=== PATIENT | female | born 1930 | race Caucasian/White ===

== ENCOUNTER 2016-08-11 13:25 | Outpatient (CLI) | payer MEDICARE | END 2016-08-11 13:26 | disposition home or self-care (01) | DX: M54.5 Low back pain (principal); E11.9 Type 2 diabetes mellitus without complications; I48.91 Unspecified atrial fibrillation; I10 Essential (primary) hypertension ==

== ENCOUNTER 2017-02-10 08:20 | Outpatient (CLI) | payer MEDICARE, OTHER ==
[2017-02-10 13:49] LABS: BASOPHILS % (AUTO) 0.7 %; EOSINOPHILS # (AUTO) 0.1 10^3/uL (0.0-0.7); EOSINOPHILS % (AUTO) 2.2 %; HCT - HEMATOCRIT 43.9 % (37.0-47.0); HGB - HEMOGLOBIN 14.6 g/dL (12.0-16.0); MEAN CORPUSCULAR HEMOGLOBIN 28.9 pg (27.0-31.0); MEAN CORPUSCULAR HGB CONC 33.3 g/dL (32.0-36.0); MEAN CORPUSCULAR VOLUME 86.8 fL (81.0-99.0); MEAN PLATELET VOLUME 8.3 fL (7.9-10.8); MONOCYTES # (AUTO) 0.5 10^3/uL (0.0-1.0); MONOCYTES % (AUTO) 8.6 %; NEUTROPHILS # (AUTO) 4.3 10^3/uL (1.5-6.6); NEUTROPHILS % (AUTO) 71.5 %; NUCLEATED RED BLOOD CELLS AUTO 0.1 /100WBC; RED BLOOD COUNT 5.06 10^6/uL (4.20-5.40); RED CELL DISTRIBUTION WIDTH 13.5 % (12.0-15.0)
[2017-02-10 13:59] LABS: HEMOGLOBIN A1C 0.83 g/dL
[2017-02-10 14:09] LABS: ALBUMIN/GLOBULIN RATIO 1.4 (1.0-2.2); BUN - BLOOD UREA NITROGEN 23 mg/dL (6-20); CALCIUM 9.4 mg/dL (8.5-10.3); CARBON DIOXIDE - CO2 29 mmol/L (21-32); CHLORIDE 101 mmol/L (101-111); CHOLESTEROL 133 mg/dL; CREATININE 0.8 mg/dL (0.4-1.0); GFR - MDRD 68 (>89); GLUCOSE 123 mg/dL (70-100); POTASSIUM 4.1 mmol/L (3.5-5.0); SODIUM 137 mmol/L (135-145); TOTAL PROTEIN 7.3 g/dL (6.7-8.2); TRIGLYCERIDES 182 mg/dL; VLDL CHOLESTEROL 36 mg/dL
[2017-02-10 14:10] LABS: CHOL/HDL RATIO 3.7 (<4.4); HDL CHOLESTEROL 36 mg/dL; LDL/HDL RATIO 1.7 (<4.4)
== END 2017-02-10 08:21 | disposition home or self-care (01) ==
LOC: LAB.WCP 08:20
PROVIDERS: ATTEND Family Medicine
DX: E78.5 Hyperlipidemia, unspecified (principal); E11.9 Type 2 diabetes mellitus without complications
CPT/HCPCS: 36415; 80053; 80061; 83036; 85025

== ENCOUNTER 2017-03-17 15:25 | Outpatient (CLI) | payer MEDICARE, OTHER | END 2017-03-17 15:26 | disposition home or self-care (01) | LOC: LAB.R 15:25 | PROVIDERS: ATTEND Family Medicine | DX: N39.0 Urinary tract infection, site not specified (principal) | CPT/HCPCS: 87077; 87086 ==

== ENCOUNTER 2017-04-06 15:33 | Outpatient (CLI) | payer MEDICARE, OTHER | END 2017-04-06 15:34 | disposition home or self-care (01) | LOC: LAB.R 15:33 | PROVIDERS: ATTEND Family Medicine | DX: N39.0 Urinary tract infection, site not specified (principal) | CPT/HCPCS: 87086 ==

== ENCOUNTER 2017-05-03 14:28 | Outpatient (CLI) | payer MEDICARE, OTHER ==
[2017-05-03 13:06] LABS: BASOPHILS % (AUTO) 0.6 %; EOSINOPHILS # (AUTO) 0.2 10^3/uL (0.0-0.7); EOSINOPHILS % (AUTO) 3.1 %; HCT - HEMATOCRIT 39.8 % (37.0-47.0); HGB - HEMOGLOBIN 13.4 g/dL (12.0-16.0); LYMPHOCYTES % (AUTO) 19.7 %; MEAN CORPUSCULAR HEMOGLOBIN 29.3 pg (27.0-31.0); MEAN CORPUSCULAR HGB CONC 33.6 g/dL (32.0-36.0); MEAN CORPUSCULAR VOLUME 87.3 fL (81.0-99.0); MEAN PLATELET VOLUME 9.2 fL (7.9-10.8); MONOCYTES # (AUTO) 0.4 10^3/uL (0.0-1.0); MONOCYTES % (AUTO) 8.9 %; NEUTROPHILS # (AUTO) 3.4 10^3/uL (1.5-6.6); NEUTROPHILS % (AUTO) 67.7 %; NUCLEATED RED BLOOD CELLS AUTO 0.2 /100WBC; RED BLOOD COUNT 4.56 10^6/uL (4.20-5.40); RED CELL DISTRIBUTION WIDTH 14.6 % (12.0-15.0)
[2017-05-03 13:31] LABS: BUN - BLOOD UREA NITROGEN 25 mg/dL (6-20); CALCIUM 9.1 mg/dL (8.5-10.3); CARBON DIOXIDE - CO2 26 mmol/L (21-32); CHLORIDE 107 mmol/L (101-111); CHOL/HDL RATIO 3.3 (<4.4); CHOLESTEROL 98 mg/dL; CREATININE 0.8 mg/dL (0.4-1.0); GFR - MDRD 68 (>89); GLUCOSE 123 mg/dL (70-100); HDL CHOLESTEROL 30 mg/dL; LDL/HDL RATIO 1.5 (<4.4); POTASSIUM 4.2 mmol/L (3.5-5.0); SODIUM 138 mmol/L (135-145); TRIGLYCERIDES 114 mg/dL; VLDL CHOLESTEROL 23 mg/dL
== END 2017-05-03 14:29 | disposition home or self-care (01) ==
LOC: LAB.WCP 14:28
PROVIDERS: ATTEND Internal Medicine Cardiovascular Disease
DX: I48.1 Persistent atrial fibrillation (principal); Z79.01 Long term (current) use of anticoagulants; I35.0 Nonrheumatic aortic (valve) stenosis; E78.5 Hyperlipidemia, unspecified; I10 Essential (primary) hypertension; X58.XXXD Exposure to other specified factors, subsequent encounter
CPT/HCPCS: 36415; 80048; 80061; 85025

== ENCOUNTER 2017-06-13 09:15 | Outpatient (CLI) | payer MEDICARE, OTHER ==
[2017-06-13 13:53] LABS: BASOPHILS % (AUTO) 1.2 %; EOSINOPHILS # (AUTO) 0.1 10^3/uL (0.0-0.7); EOSINOPHILS % (AUTO) 2.7 %; HCT - HEMATOCRIT 34.2 % (37.0-47.0); HGB - HEMOGLOBIN 11.8 g/dL (12.0-16.0); LYMPHOCYTES # (AUTO) 0.9 10^3/uL (1.5-3.5); LYMPHOCYTES % (AUTO) 24.6 %; MEAN CORPUSCULAR HEMOGLOBIN 30.8 pg (27.0-31.0); MEAN CORPUSCULAR HGB CONC 34.5 g/dL (32.0-36.0); MEAN CORPUSCULAR VOLUME 89.1 fL (81.0-99.0); MEAN PLATELET VOLUME 9.1 fL (7.9-10.8); MONOCYTES # (AUTO) 0.3 10^3/uL (0.0-1.0); MONOCYTES % (AUTO) 9.4 %; NEUTROPHILS # (AUTO) 2.2 10^3/uL (1.5-6.6); NEUTROPHILS % (AUTO) 62.1 %; NUCLEATED RED BLOOD CELLS AUTO 0.3 /100WBC; RED BLOOD COUNT 3.84 10^6/uL (4.20-5.40); RED CELL DISTRIBUTION WIDTH 16.4 % (12.0-15.0); UNCORRECTED WHITE BLOOD COUNT 3.6 x10^3/uL; WHITE BLOOD COUNT 3.6 x10^3/uL (4.8-10.8)
== END 2017-06-13 09:16 | disposition home or self-care (01) ==
LOC: LAB.WCP 09:15
PROVIDERS: ATTEND Internal Medicine Cardiovascular Disease
DX: I10 Essential (primary) hypertension (principal)
CPT/HCPCS: 36415; 85025

== ENCOUNTER 2017-06-28 14:36 | Outpatient (CLI) | payer MEDICARE, OTHER ==
[2017-06-28 12:55] LABS: HCT - HEMATOCRIT 31.4 % (37.0-47.0); HGB - HEMOGLOBIN 10.9 g/dL (12.0-16.0); MEAN CORPUSCULAR HEMOGLOBIN 31.1 pg (27.0-31.0); MEAN CORPUSCULAR HGB CONC 34.6 g/dL (32.0-36.0); MEAN PLATELET VOLUME 9.3 fL (7.9-10.8); RED BLOOD COUNT 3.49 10^6/uL (4.20-5.40); RED CELL DISTRIBUTION WIDTH 16.9 % (12.0-15.0)
== END 2017-06-28 14:37 | disposition home or self-care (01) ==
LOC: LAB.WCP 14:36
PROVIDERS: ATTEND Family Medicine
DX: D69.6 Thrombocytopenia, unspecified (principal)
CPT/HCPCS: 36415

== ENCOUNTER 2017-07-26 08:00 | Outpatient (CLI) | payer MEDICARE, OTHER ==
[2017-07-26 13:36] LABS: ALBUMIN/GLOBULIN RATIO 1.4 (1.0-2.2); ALKALINE PHOSPHATASE 62 IU/L (42-121); ALT ALANINE AMINOTRANSFERASE < 10 IU/L (10-60); AST ASPARTATE AMINOTRANSFERASE 21 IU/L (10-42); BILIRUBIN,TOTAL 1.4 mg/dL (0.2-1.0); BUN - BLOOD UREA NITROGEN 28 mg/dL (6-20); CALCIUM 9.1 mg/dL (8.5-10.3); CARBON DIOXIDE - CO2 23 mmol/L (21-32); CHLORIDE 105 mmol/L (101-111); CHOL/HDL RATIO 2.9 (<4.4); CHOLESTEROL 73 mg/dL; CREATININE 0.8 mg/dL (0.4-1.0); GFR - MDRD 68 (>89); GLUCOSE 173 mg/dL (70-100); HDL CHOLESTEROL 25 mg/dL; LDL CHOLESTEROL,CALCULATED 30 mg/dL; LDL/HDL RATIO 1.2 (<4.4); SODIUM 137 mmol/L (135-145); TOTAL PROTEIN 6.8 g/dL (6.7-8.2); VLDL CHOLESTEROL 18 mg/dL
[2017-07-26 14:08] LABS: HB2 TOTAL 9.8 g/dL; HEMOGLOBIN A1C 0.53 g/dL; HEMOGLOBIN A1C % 7.1 % (4.6-6.2)
== END 2017-07-26 08:01 | disposition home or self-care (01) ==
LOC: LAB.WCP 08:00
PROVIDERS: ATTEND Family Medicine
DX: I48.91 Unspecified atrial fibrillation (principal); E11.9 Type 2 diabetes mellitus without complications; I10 Essential (primary) hypertension; E78.5 Hyperlipidemia, unspecified
CPT/HCPCS: 36415; 80053; 80061; 83036

== ENCOUNTER 2017-08-01 09:00 | Outpatient (CLI) | payer MEDICARE, OTHER ==
[2017-08-01 12:58] LABS: BASOPHILS % (AUTO) 1.4 %; EOSINOPHILS % (AUTO) 1.3 %; HGB - HEMOGLOBIN 9.6 g/dL (12.0-16.0); LYMPHOCYTES # (AUTO) 0.7 10^3/uL (1.5-3.5); MEAN CORPUSCULAR HEMOGLOBIN 31.9 pg (27.0-31.0); MEAN CORPUSCULAR HGB CONC 34.4 g/dL (32.0-36.0); MEAN CORPUSCULAR VOLUME 92.7 fL (81.0-99.0); MEAN PLATELET VOLUME 10.1 fL (7.9-10.8); MONOCYTES # (AUTO) 0.3 10^3/uL (0.0-1.0); MONOCYTES % (AUTO) 14.7 %; NEUTROPHILS # (AUTO) 1.2 10^3/uL (1.5-6.6); NEUTROPHILS % (AUTO) 53.6 %; PLT - PLATELET COUNT 50 10^3/uL (130-450); RED CELL DISTRIBUTION WIDTH 18.3 % (12.0-15.0); WHITE BLOOD COUNT 2.3 x10^3/uL (4.8-10.8)
[2017-08-01 13:10] LABS: PLATELET MORPHOLOGY RARE GIANT PLATELETS (NORMAL); RBC MORPHOLOGY (MULTIPLE) 1+ POLYCHROMASIA (NORMAL)
== END 2017-08-01 09:01 | disposition home or self-care (01) ==
LOC: LAB.WCP 09:00
PROVIDERS: ATTEND Family Medicine
DX: D64.9 Anemia, unspecified (principal); D69.6 Thrombocytopenia, unspecified
CPT/HCPCS: 36415; 85025

== ENCOUNTER 2017-09-15 11:13 | Outpatient (CLI) | payer MEDICARE, OTHER | END 2017-09-15 11:14 | disposition EMS.NT | LOC: EMS 11:13 | PROVIDERS: ATTEND Surgery | DX: R60.9 Edema, unspecified (principal); R06.02 Shortness of breath ==

== ENCOUNTER 2017-09-15 12:02 | Inpatient (IN) | payer MEDICARE, OTHER ==
[2017-09-15] MEDS ORDERED: FUROSEMIDE 40 MG/4 ML VIAL IVP STA (12:44)
--- NOTE | 2017-09-15 12:47 | ED Physician Documentation ---
PD HPI DYSPNEA - Stated complaint Stated Complaint: SOA/SWOLLEN LEGS/ABD - Chief complaint Chief Complaint: Cardiac - History obtained from History obtained from: Patient, Caregiver - History of Present Illness Timing - onset: Other (87-year-old woman with recent diagnosis of myelodysplastic syndrome, has been on Revlimid for about a month and a half, she has a history of A. fib, is not anticoagulated. She has no history of heart failure or other heart conditions. For the last week she has had progressive pedal edema and abdominal swelling associated with exertional dyspnea, at this point can only walk about 20 feet without feeling breathless and having to rest. There is no associated chest pain. No fevers or cough.) Review of Systems Ten Systems: 10 systems reviewed and negative Constitutional: reports: Fatigue. denies: Fever, Chills Nose: denies: Rhinorrhea / runny nose, Congestion Cardiac: reports: Palpitations, Pedal edema. denies: Chest pain / pressure, Calf pain Respiratory: reports: Dyspnea. denies: Cough PD PAST MEDICAL HISTORY - Past Medical History Cardiovascular: Atrial fibrillation, Murmur Neuro: None Endocrine/Autoimmune: Type 2 diabetes GI: None HEENT: Glaucoma Psych: None Musculoskeletal: Osteoarthritis Derm: Herpes zoster - Past Surgical History Past Surgical History: Yes General: Appendectomy Ortho: Hip replacement /[employer]: Hysterectomy HEENT: Cataracts Derm: Skin cancer surgery - Present Medications Home Medications: Ambulatory Orders Medication Instructions Recorded Confirmed Atorvastatin [Lipitor] 20 mg PO QPM 04/02/16 09/06/17 Cholecalciferol (Vitamin D3) 2,000 unit PO DAILY 04/02/16 09/06/17 [Vitamin D3] Lisinopril [Zestril] 20 mg PO QPM 04/02/16 09/06/17 Metoprolol Succinate 200 mg PO DAILY 04/02/16 09/06/17 Multivitamin [Multivitamins] 1 tab PO DAILY 04/02/16 09/06/17 Tolterodine [Detrol LA] 4 mg PO DAILY 04/02/16 09/06/17 Acetaminophen [Tylenol] 650 mg PO BID 08/02/17 09/06/17 Bimatoprost 0.01% Ophth Dops 1 drops RIGHTEYE QPM 08/02/17 09/06/17 [Lumigan 0.01% Ophth Drops] Brimonidine Tartrate/Timolol 1 drops RIGHTEYE BID 08/02/17 09/06/17 [Combigan 0.2%-0.5% Eye Drops] Brinzolamide 1% Ophth Drops [Azopt 1 drops RIGHTEYE BID 08/02/17 09/06/17 1% Ophth Drops] prednisoLONE 1% OPHTH DROPS [Pred 1 drops RIGHTEYE DAILY 08/02/17 09/06/17 Forte 1% Ophth Drops] Lenalidomide [Revlimid] 10 mg PO DAILY 09/02/17 09/06/17 Aspirin 1 tab PO DAILY 09/06/17 09/06/17 Lenalidomide [Revlimid] 1 cap PO DAILY 09/06/17 09/06/17 - Allergies Allergies/Adverse Reactions: Allergies Allergy/AdvReac Type Severity Reaction Status Date / Time No Known Drug Allergies Allergy Verified 09/15/17 12:10 - Social History Does the pt smoke?: No Smoking Status: Never smoker Does the pt drink ETOH?: No Does the pt have substance abuse?: No - Family History Family history: reports: Non contributory - Immunizations Immunizations are current?: Yes PD ED PE NORMAL - Vitals Vital signs reviewed: Yes - General General: Alert and oriented X 3, No acute distress - HEENT HEENT: Moist mucous membranes, Pharynx benign - Neck Neck: Supple, no meningeal sign, No bony TTP - Cardiac Cardiac: Other (Irregularly irregular without murmur, rate controlled. She does have a JVD to the angle of the jaw bilaterally.) - Respiratory Respiratory: Other (Lungs are relatively clear, nonlabored.) - Abdomen Abdomen: Other (Abdomen is nontender, to her caregiver it does look swollen.) - Rectal Rectal: Other (brown but v guiaiac pos) - Back Back: No CVA TTP, No spinal TTP - Derm Derm: Normal color, Warm and dry - Extremities Extremities: Other (She does have 3+ pitting pedal edema bilaterally) - Neuro Neuro: Alert and oriented X 3, Normal speech - Psych Psych: Normal mood, Normal affect Results - Vitals Vitals: Vital Signs - 24 hr 09/15/17 12:08 Temperature 36.9 C Heart Rate 96 Respiratory 18 Rate Blood Pressure 125/68 O2 Saturation 100 Oxygen O2 Source Room air - EKG (time done) 1218 Rate: Rate (enter#) (87) Rhythm: Atrial fibrillation [place]: Normal Intervals: RBBB Ischemia: Non specific changes Compare to prior EKG: Unchanged from prior EKG Computer interpretation: Agree with computer - Labs Labs: Laboratory Tests 09/15/17 09/15/17 09/15/17 12:50 12:50 12:50 WBC 2.2 L RBC 2.29 L Hgb 7.5 L Hct 22.5 L MCV 98.4 MCH 32.6 H MCHC 33.1 RDW 21.9 H Plt Count 39 L MPV 11.0 H Neut # 1.0 L Lymph # 0.6 L [place] # 0.5 Eos # 0.1 Baso # 0.0 Absolute Nucleated RBC 0.00 Band Neuts % (Manual) Not Reportable Abnorm Lymph % (Manual) Not Reportable Nucleated RBC % 0.2 Neutrophils # (Manual) Not Reportable Lymphocytes # (Manual) Not Reportable Monocytes # (Manual) Not Reportable Eosinophils # (Manual) Not Reportable Basophils # (Manual) Not Reportable Differential Comment MANUAL=AUTO DIFF Manual Slide Review Indicated WBC Morphology NORMAL MICK Platelet Estimate DECREASED (<130,000) Platelet Morphology 1+ LARGE PLATELETS RBC Morph Micro Appear 1+ POLYCHROMASIA D-Dimer Sodium 135 Potassium 4.1 Chloride 106 Carbon Dioxide 21 Anion Gap 8.0 BUN 36 H Creatinine 1.1 H Estimated GFR (MDRD) 47 L Glucose 127 H Calcium 8.6 Total Bilirubin 1.8 H AST 19 ALT < 10 L Alkaline Phosphatase 73 Troponin I < 0.04 B-Natriuretic Peptide Total Protein 6.6 L Albumin 3.6 Globulin 3.0 Albumin/Globulin Ratio 1.2 Lipase 18 L 09/15/17 09/15/17 12:50 12:50 WBC RBC Hgb Hct MCV MCH MCHC RDW Plt Count MPV Neut # Lymph # [place] # Eos # Baso # Absolute Nucleated RBC Band Neuts % (Manual) Abnorm Lymph % (Manual) Nucleated RBC % Neutrophils # (Manual) Lymphocytes # (Manual) Monocytes # (Manual) Eosinophils # (Manual) Basophils # (Manual) Differential Comment Manual Slide Review WBC Morphology Platelet Estimate Platelet Morphology RBC Morph Micro Appear D-Dimer 317.1 H Sodium Potassium Chloride Carbon Dioxide Anion Gap BUN Creatinine Estimated GFR (MDRD) Glucose Calcium Total Bilirubin AST ALT Alkaline Phosphatase Troponin I B-Natriuretic Peptide 976 H Total Protein Albumin Globulin Albumin/Globulin Ratio Lipase PD MEDICAL DECISION MAKING - ED course ED course: 87-year-old woman with chronic atrial fibrillation and recent diagnosis of myelodysplastic syndrome on Revlimid presents with a week's worth of symptoms and signs consistent with right-sided heart failure. Found to be pancytopenic which is worse and a guaiac exam was done and positive. Blood and platelets were readied and she was administered Protonix and prior to this was administered IV Lasix. She will need to be admitted for further evaluation and treatment and call to Dr. Corey at 1:45 PM. Departure - Departure Disposition: [facility] DC/Xfer Clinical Impression: Congestive heart failure Qualifiers: Congestive heart failure type: unspecified Congestive heart failure chronicity : acute Qualified Code(s): I50.9 - Heart failure, unspecified Atrial fibrillation Qualifiers: Atrial fibrillation type: chronic Qualified Code(s): I48.2 - Chronic atrial fibrillation GI bleed Qualifiers: GI bleed type/associated pathology: unspecified gastrointestinal hemorrhage type Qualified Code(s): K92.2 - Gastrointestinal hemorrhage, unspecified Condition: Serious
[2017-09-15 13:10] LABS: ALBUMIN 3.6 g/dL (3.2-5.5); ALBUMIN/GLOBULIN RATIO 1.2 (1.0-2.2); ALKALINE PHOSPHATASE 73 IU/L (42-121); ALT ALANINE AMINOTRANSFERASE < 10 IU/L (10-60); AST ASPARTATE AMINOTRANSFERASE 19 IU/L (10-42); BILIRUBIN,TOTAL 1.8 mg/dL (0.2-1.0); BUN - BLOOD UREA NITROGEN 36 mg/dL (6-20); CALCIUM 8.6 mg/dL (8.5-10.3); CARBON DIOXIDE - CO2 21 mmol/L (21-32); CHLORIDE 106 mmol/L (101-111); CREATININE 1.1 mg/dL (0.4-1.0); GFR - MDRD 47 (>89); GLUCOSE 127 mg/dL (70-100); LIPASE 18 U/L (22-51); SODIUM 135 mmol/L (135-145); TOTAL PROTEIN 6.6 g/dL (6.7-8.2)
[2017-09-15 13:13] LABS: BASOPHILS % (AUTO) 1.1 %; EOSINOPHILS # (AUTO) 0.1 10^3/uL (0.0-0.7); EOSINOPHILS % (AUTO) 3.2 %; HGB - HEMOGLOBIN 7.5 g/dL (12.0-16.0); LYMPHOCYTES # (AUTO) 0.6 10^3/uL (1.5-3.5); LYMPHOCYTES % (AUTO) 27.7 %; MEAN CORPUSCULAR HEMOGLOBIN 32.6 pg (27.0-31.0); MEAN CORPUSCULAR HGB CONC 33.1 g/dL (32.0-36.0); MEAN CORPUSCULAR VOLUME 98.4 fL (81.0-99.0); MONOCYTES # (AUTO) 0.5 10^3/uL (0.0-1.0); MONOCYTES % (AUTO) 20.9 %; NEUTROPHILS % (AUTO) 47.1 %; PLT - PLATELET COUNT 39 10^3/uL (130-450); RED BLOOD COUNT 2.29 10^6/uL (4.20-5.40); RED CELL DISTRIBUTION WIDTH 21.9 % (12.0-15.0); WHITE BLOOD COUNT 2.2 x10^3/uL (4.8-10.8)
[2017-09-15 13:32] LABS: PLATELET ESTIMATE, MANUAL DECREASED (<130,000) (NORMAL); PLATELET MORPHOLOGY 1+ LARGE PLATELETS (NORMAL)
[2017-09-15 13:34] LABS: DIFFERENTIAL COMMENT MANUAL=AUTO DIFF
[2017-09-15] MEDS ORDERED: PANTOPRAZOLE 40 MG VIAL IVP STA (13:40)
--- NOTE | 2017-09-15 13:58 | XRAY Preliminary Report ---
Exam: XR CHEST 2 VIEW X-RAY IMPRESSION: 1. Mild cardiomegaly. 2. Small anterior bibasilar infiltrates and small left pleural effusion. [facility] SITE ID: [id number]
[2017-09-15] MEDS ORDERED: SODIUM CHLORIDE FLUSH 0.9% 10 ML SYRINGE IVP PRN (14:08)
--- NOTE | 2017-09-15 14:27 | XRAY Report ---
EXAM: CHEST RADIOGRAPHY EXAM DATE: 09/15/2017 01:13 PM. CLINICAL HISTORY: Shortness of breath. Tachycardia. COMPARISON: 04/02/2016. TECHNIQUE: 2 views. FINDINGS: Lungs/Pleura: Normal lung volumes. Small anterior bibasilar airspace infiltrates. Mild blunting of th e left lateral costophrenic angle. No vascular congestion nor pneumothorax. Mediastinum: Stable mild cardiomegaly. Interval mid thoracic spine fusion. No tracheal shift. Other: None. IMPRESSION: 1. Mild cardiomegaly. 2. Small anterior bibasilar infiltrates and small left pleural effusion. [facility] Referring Provider Line: [phone] SITE ID: [id number]
--- NOTE | 2017-09-15 15:03 | HISTORY & PHYSICAL EXAMINATION ---
Chief Complaint - Chief Complaint Chief Complaint: shortness of breath, BLE edema History of Present Illness - Admitted From Admitted From:: ED - History Obtained From Records Reviewed: yes History obtained from: chart review, patient Exam Limitations: none - History of Present Illness HPI Comment/Other: Swati Rodney is an elderly 87-year old female with a past medical history of myelodysplastic syndrome-who she sees our [facility], glaucoma, atrial fibrillation, murmur, DM type 2, herpes zoster, osteoarthritis, recent CHF and glaucoma. She arrived in our ED with the complaints that over the past week she has had an increased cough, BLE leg edema, abdominal edema and less tolerant of activity. She also notes that she can only ambulate across the room before feeling winded and breathless. She denies chest pain, nausea, vomiting or a recent illness. She admits to recent chest palpitations, mild anorexia, and a cough. She states that she has not been resting well because she has to use the toilet frequently at night. She will be admitted for administration of blood, telemetry monitoring, an echocardiogram in the AM to assess a progression of her CHF and to titrate fluid balance. History - Past Medical History Cardiovascular: reports: Congestive heart failure, Hypertension, High cholesterol, Atrial fibrillation, Murmur Respiratory: reports: None Neuro: reports: None Endocrine/Autoimmune: reports: Type 2 diabetes GI: reports: None : reports: Retention, Incontinence, Renal insuffiency, Frequency, Other (1 solitary kidney) HEENT: reports: Glaucoma Psych: reports: None Musculoskeletal: reports: Osteoarthritis Derm: reports: Herpes zoster (causing right eye blindness.) MRSA Hx?: No - Past Surgical History General: reports: Appendectomy Ortho: reports: Hip replacement /[employer]: reports: Hysterectomy HEENT: reports: Cataracts Derm: reports: Skin cancer surgery Other past surgical history: Bone marrow bx. - Family & Social History Family History: Mother: , CAD, Father: , CAD, Brother: Alive and Well, Mental Illness Family History Comment/Other: Mother had heart disease after rheumatic fever, father had heart disease, both are . Brother is alive and well, but suffers from dementia. Living arrangement: At home Living Situation: Alone, With caregiver(s) Social History Notes: Patient was and had 2 children a boy and a girl. She raised her family in [place], [place]. She has now been on this beaver for the past 24 years, and her grown children followed. 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 She lives independently, and hires a personal caregiver. She denies the use of tobacco, alcohol, or illicit drug use. She wishes to be a DNR. - Substance History Use: Uses substance without health or social issues: NONE Abuse: Recurrent use of substance despite neg consequences: NONE Dependence: Experiences withdrawal or developed tolerances: NONE - POLST Patient has POLST: No POLST Status: DNR Meds/Allgy - Home Medications Home Medications: Ambulatory Orders Medication Instructions Recorded Confirmed Atorvastatin [Lipitor] 20 mg PO QPM 04/02/16 09/15/17 Cholecalciferol (Vitamin D3) 2,000 unit PO DAILY 04/02/16 09/15/17 [Vitamin D3] Lisinopril [Zestril] 20 mg PO QPM 04/02/16 09/15/17 Metoprolol Succinate 200 mg PO DAILY 04/02/16 09/15/17 Tolterodine [Detrol LA] 4 mg PO DAILY 04/02/16 09/15/17 Bimatoprost 0.01% Ophth Dops 1 drops RIGHTEYE QPM 08/02/17 09/15/17 [Lumigan 0.01% Ophth Drops] Brimonidine Tartrate/Timolol 1 drops RIGHTEYE BID 08/02/17 09/15/17 [Combigan 0.2%-0.5% Eye Drops] Brinzolamide 1% Ophth Drops [Azopt 1 drops RIGHTEYE BID 08/02/17 09/15/17 1% Ophth Drops] prednisoLONE 1% OPHTH DROPS [Pred 1 drops RIGHTEYE DAILY 08/02/17 09/15/17 Forte 1% Ophth Drops] Lenalidomide [Revlimid] 10 mg PO DAILY 09/02/17 09/15/17 Aspirin 81 mg PO DAILY 09/06/17 09/15/17 Multivitamin [Theragran] 1 tab PO DAILY 09/15/17 09/15/17 - Allergies Allergies/Adverse Reactions: Allergies Allergy/AdvReac Type Severity Reaction Status Date / Time lisinopril Allergy Rash Verified 09/15/17 16:04 Review of Systems - Constitutional Constitutional: reports: Fatigue, Weakness, Poor appetite. denies: Fever, Chills - Eyes Eyes: reports: Vision loss. denies: Pain, Irritation, Amaurosis - Ears, Nose & Throat Ears, Nose & Throat: reports: Hearing loss. denies: Ear pain, Hearing aids, Tinnitus - Cardiovascular Cariovascular: reports: Irregular heart rate, Palpitations, Edema, Lightheadedness, Decr. exercise tolerance, Orthopnea - Respiratory Respiratory: reports: Cough, Orthopnea, SOB at rest, SOB with exertion. denies : Sputum production, Wheezing, Snoring - Gastrointestinal Gastrointestinal: reports: Abdominal distention, Reflux/heartburn, Poor appetite. denies: Constipation, Diarrhea, Change in bowel habits, Rectal bleeding - Genitourinary Genitourinary: reports: Dysuria, Frequency, Urgency, Incontinence. denies: Hematuria - Musculoskeletal Musculoskeletal: denies: Muscle pain, Back pain - Integumentary Integumentary: reports: Dryness, Pigment changes. denies: Rash, Pruritis - Neurological Neurological: reports: General weakness, Pre-existing deficit - Psychiatric Psychiatric: denies: Depression, Anxiety, Suicidal - Endocrine Endocrine: reports: Intolerance to cold. denies: Polyuria, Polydypsia - Hematologic/Lymphatic Hematologic/Lymphatic: reports: Anemia, Bleeding tendencies. denies: Bruising - All Other Systems All Other Systems: reports: Reviewed and negative Exam - Vital Signs Reviewed Vital Signs: Yes Vital Signs: Vital Signs x48h Temp Pulse Pulse Resp BP BP Pulse Ox 09/15/17 14:53 34.7 C L 80 20 131/78 H 96 09/15/17 14:38 60 20 141/82 H 99 - Physical Exam General Appearance: positive: Alert, Moderate distress Eyes Bilateral: positive: Normal inspection ENT: positive: ENT inspection nml, Pharynx nml, Dry mucous membranes Neck: positive: Nml inspection, Thyroid nml, Trachea midline Respiratory: positive: Chest non-tender, No respiratory distress, Wheezes, Other (crackles) Cardiovascular: positive: No gallop, Irregularly irregular, Systolic murmur, Decreased pulse(s) Peripheral Pulses: positive: Other (faint, pitting edema limits palpable pulses) Abdomen: positive: Non-tender, Hepatomegaly, Abnml bowel sounds (rounded, soft, obese.) Back: positive: Nml inspection Skin: positive: No rash, Warm, Dry, Pallor Extremities: positive: Non-tender, Pedal edema, Joint swelling, Other (+3 pitting edema, equal BLE, abdominal edema.) Neurologic/Psychiatric: positive: Oriented x3, CN's nml (2-12), Motor nml, Sensation nml, Depressed mood/affect Reflexes: Bicep (R): 2+, Bicep (L): 2+ Conclusion/Plan - Problem List (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 Plan: 2 units of PRBCs will be given. We will monitor H/H, and attend to fluid balance using lasix. (2) Atrial fibrillation Conclusion/Plan: Patient has a long history of paroxysmal atrial fibrillation and admits to previous cardioversions. She is no longer anticoagualted. Plan: Echocardiogram and monitor on telemetry. We will continue her beta mohit. Qualifiers: Atrial fibrillation type: chronic Qualified Code(s): I48.2 - Chronic atrial fibrillation (3) Congestive heart failure Conclusion/Plan: Patient has a remote, known history of this. She has orthopnea, a cough, BLE pitting edema, abdominal girth edema and severe activity intolerance. Plan: Monitor fluid balance and continue home diuretics. Monitor on tele, obtain an echocardiogram in AM. Qualifiers: Congestive heart failure type: unspecified Congestive heart failure chronicity: acute Qualified Code(s): I50.9 - Heart failure, unspecified (4) Acute renal insufficiency Conclusion/Plan: Patient's history states she has 1 solitary kidney. Creatinine on admission was 1.1 and GFR of 47. Plan: Continue diuresis, but avoiding all other nephrotoxins. We will continue to monitor labs. - Lab Results Lab results reviewed: Yes Fish Bones: 09/15/17 12:50 09/15/17 12:50 - Diagnostic Imaging Results Diagnostic Imaging Results: positive: Final report reviewed - EKG Results EKG Interpreted Independently: Yes EKG Comparison: Unchanged from prior EKG Core Measures - Anticipated LOS I expect patient to be DC'd or transferred within 96 hours.: Yes - DVT/VTE - Prophylaxis VTE/DVT Device ordered at admit?: Yes VTE/DVT Prophylaxis med ordered at admit?: No Not Ordered - Medical Reason: Contraindicated - Stroke - Rehab Assessment Rehab services assessment to be ordered?: Yes - AMI - Statin at Admit Aspirin Prescribed on Admit: Yes
[2017-09-15] MEDS ORDERED: SODIUM CHLORIDE 0.9% 1,000 ML IV SCH (16:00)
[2017-09-15] MEDS: SODIUM CHLORIDE FLUSH 0.9% 10 ML SYRINGE IVP SCH ×2 (17:31→19:34)
[2017-09-15] MEDS ORDERED: FUROSEMIDE 40 MG/4 ML VIAL IVP SCH (20:00)
[2017-09-15] MEDS: PRAMIPEXOLE 0.25 MG TABLET PO SCH (21:48)
[2017-09-15] MEDS: ACETAMINOPHEN 325 MG TABLET PO PRN (21:48)
[2017-09-15] MEDS: BIMATOPROST 0.01% OPHTH DROPS 2.5 ML RIGHTEYE SCH (21:50)
[2017-09-15] MEDS: BRINZOLAMIDE 1% OPHTH DROPS RIGHTEYE SCH (21:51)
[2017-09-16] MEDS: ACETAMINOPHEN 325 MG TABLET PO PRN ×3 (03:50→14:33)
[2017-09-16 06:13] LABS: BASOPHILS % (AUTO) 1.1 %; EOSINOPHILS % (AUTO) 5.6 %; HGB - HEMOGLOBIN 9.4 g/dL (12.0-16.0); LYMPHOCYTES % (AUTO) 24.7 %; MEAN CORPUSCULAR HEMOGLOBIN 31.2 pg (27.0-31.0); MEAN CORPUSCULAR HGB CONC 33.7 g/dL (32.0-36.0); MEAN CORPUSCULAR VOLUME 92.5 fL (81.0-99.0); MEAN PLATELET VOLUME 8.7 fL (7.9-10.8); MONOCYTES % (AUTO) 20.2 %; NEUTROPHILS % (AUTO) 48.4 %; PLT - PLATELET COUNT 52 10^3/uL (130-450); RED BLOOD COUNT 3.03 10^6/uL (4.20-5.40); RED CELL DISTRIBUTION WIDTH 20.1 % (12.0-15.0)
[2017-09-16 06:19] LABS: ALBUMIN 3.5 g/dL (3.2-5.5); ALBUMIN/GLOBULIN RATIO 1.3 (1.0-2.2); BILIRUBIN,TOTAL 2.5 mg/dL (0.2-1.0); CALCIUM 8.5 mg/dL (8.5-10.3); CREATININE 1.2 mg/dL (0.4-1.0); TOTAL PROTEIN 6.3 g/dL (6.7-8.2)
[2017-09-16 06:21] LABS: WHITE BLOOD COUNT 1.8 x10^3/uL (4.8-10.8)
[2017-09-16 06:22] LABS: ABNORMAL LYMPHS % (MANUAL) 0 %
[2017-09-16 06:42] LABS: BAND NEUTROPHILS % (MANUAL) 4 %; EOSINOPHILS # (MANUAL) 0.1 10^3/uL (0-0.7); LYMPHOCYTES # (MANUAL) 0.6 10^3/uL (1.5-3.5); LYMPHOCYTES % (MANUAL) 34 %; METAMYELOCYTES % (MANUAL) 1 %; MONOCYTES # (MANUAL) 0.1 10^3/uL (0.0-1.0); MYELOCYTES % (MANUAL) 1 %; NEUTROPHILS # (MANUAL) 0.9 10^3/uL (1.5-6.6); NEUTROPHILS % (MANUAL) 48 %
[2017-09-16 06:45] LABS: DIFFERENTIAL COMMENT MANUAL DIFFERENTIAL; PLATELET ESTIMATE, MANUAL DECREASED (<130,000) (NORMAL)
[2017-09-16] MEDS: PRAMIPEXOLE 0.25 MG TABLET PO SCH ×3 (06:48→22:41)
[2017-09-16] MEDS ORDERED: prednisoLONE 1% OPHTH DROPS 75 DROPS/5 ML BOTTLE RIGHTEYE SCH (09:00)
[2017-09-16] MEDS ORDERED: METOPROLOL SUCCINATE 50 MG TABLET PO SCH (09:00)
[2017-09-16] MEDS: ENOXAPARIN 40 MG/0.4 ML SYRINGE SUBQ SCH (09:12)
[2017-09-16] MEDS: BRINZOLAMIDE 1% OPHTH DROPS RIGHTEYE SCH ×2 (09:23→20:11)
[2017-09-16] MEDS: BRIMONIDINE TARTRATE RIGHTEYE SCH ×2 (09:29→20:08)
[2017-09-16] MEDS: TIMOLOL RIGHTEYE SCH ×2 (09:29→20:08)
[2017-09-16] MEDS: PREDNISOLONE 1% RIGHTEYE SCH (09:30)
[2017-09-16] MEDS: SODIUM CHLORIDE FLUSH 0.9% 10 ML SYRINGE IVP SCH ×3 (09:31→20:07)
[2017-09-16] MEDS: POLYETHYLENE GLYCOL 3350 17 GM PACKET PO SCH (09:31)
[2017-09-16] MEDS: TOLTERODINE LA 2 MG CAPSULE PO SCH (10:09)
[2017-09-16] MEDS ORDERED: MIN OIL/DIMETHICON/COCONUT OIL 92 GM TUBE TOP PRN (13:26)
--- NOTE | 2017-09-16 14:05 | PROVIDER PROGRESS NOTE ---
Subjective - Prog Note Date Prog Note Date: 09/16/17 Prog Note Time: 14:05 - Subjective Pt reports feeling: No change Subjective: Gloria complains of leg cramps that are severe and she finds some relief by dangling her feet. She denies increased SOB, chest pain, N/V or an increased cough. Current Medications - Current Medications Current Medications: Active Medications Acetaminophen (Tylenol) 650 mg PO Q4HR PRN PRN Reason: Pain or Fever > 38C (100.4F) Last Admin: 09/17/17 10:01 Dose: 650 mg Diphenhydramine HCl (Benadryl) 25 mg PO Q4HR PRN PRN Reason: Allergy Symptoms Last Admin: 09/17/17 02:42 Dose: 25 mg Enoxaparin Sodium (Lovenox) 40 mg SUBQ DAILY [facility] Last Admin: 09/17/17 10:02 Dose: Not Given Furosemide (Lasix Inj 40 Mg Vial) 40 mg IVP DAILY [facility] Last Admin: 09/17/17 10:18 Dose: 40 mg Lisinopril (Zestril) 20 mg PO QPM [facility] Last Admin: 09/16/17 20:06 Dose: 20 mg Magnesium Oxide (Mag Ox) 400 mg PO BID [facility] Last Admin: 09/17/17 10:19 Dose: 400 mg Metoprolol Succinate (Toprol Xl) 100 mg PO DAILY [facility] Last Admin: 09/17/17 10:00 Dose: 100 mg Mineral Oil (Cavilon) 1 applic TOP PRN PRN PRN Reason: Skin Care Bimatoprost 0.01% (Ophth Drops 2.5 Ml) 1 each RIGHTEYE QPM [facility] Last Admin: 09/16/17 20:07 Dose: 1 each Non Formulary Med ( Brimonidine Tartrate /Timolol [Combigan 0 .2%-0.5% Eye Drops ] 1 Drops) 1 each RIGHTEYE BID [facility] Last Admin: 09/17/17 09:59 Dose: 1 each Brinzolamide 1% (Ophth Drops) 1 each RIGHTEYE BID [facility] Last Admin: 09/17/17 10:00 Dose: 1 each Prednisolone Ophth (Drops 1%) 1 each RIGHTEYE DAILY [facility] Last Admin: 09/17/17 10:00 Dose: 1 each Polyethylene Glycol (Miralax) 17 gm PO DAILY [facility] Last Admin: 09/17/17 10:19 Dose: 17 gm Pramipexole Dihydrochloride (Mirapex) 0.25 mg PO TID [facility] Last Admin: 09/17/17 06:32 Dose: 0.25 mg Sodium Chloride (Normal Saline Flush 0.9%) 10 ml IVP PRN PRN PRN Reason: NEEDED PER PROVIDER ORDERS Last Admin: 09/16/17 06:48 Dose: 10 ml Sodium Chloride (Normal Saline Flush 0.9%) 10 ml IVP 0100,0900,1700 [facility] Last Admin: 09/17/17 10:19 Dose: 10 ml Spironolactone (Aldactone) 25 mg PO DAILY [facility] Last Admin: 09/17/17 10:18 Dose: 25 mg Tolterodine Tartrate (Detrol La) 4 mg PO DAILY [facility] Last Admin: 09/17/17 10:00 Dose: 4 mg Atorvastatin [Lipitor] 20 mg PO QPM 04/02/16 Cholecalciferol (Vitamin D3) [Vitamin D3] 2,000 unit PO DAILY 04/02/16 Lisinopril [Zestril] 20 mg PO QPM 04/02/16 Metoprolol Succinate 200 mg PO DAILY 04/02/16 Tolterodine [Detrol LA] 4 mg PO DAILY 04/02/16 Bimatoprost 0.01% Ophth Dops [Lumigan 0.01% Ophth Drops] 1 drops RIGHTEYE QPM Brimonidine Tartrate/Timolol [Combigan 0.2%-0.5% Eye Drops] 1 drops RIGHTEYE BID 08/02/17 Brinzolamide 1% Ophth Drops [Azopt 1% Ophth Drops] 1 drops RIGHTEYE BID prednisoLONE 1% OPHTH DROPS [Pred Forte 1% Ophth Drops] 1 drops RIGHTEYE DAILY 08/02/17 Lenalidomide [Revlimid] 10 mg PO DAILY 09/02/17 Aspirin 81 mg PO DAILY 09/06/17 Multivitamin [Theragran] 1 tab PO DAILY 09/15/17 Objective - Vital Signs/Intake & Output Reviewed Vital Signs: Yes Vital Signs: Vital Signs x48h Temp Pulse Resp BP Pulse Ox 09/16/17 13:47 36.4 C L 60 18 94/48 L 94 09/16/17 09:39 36.6 C 81 18 122/68 95 Intake & Output: Intake & Output 09/13/17 09/14/17 09/15/17 09/16/17 23:59 23:59 23:59 23:59 Intake Total 1328 1041 Output Total 150 450 Balance 1178 591 - Objective General Appearance: positive: No acute distress, Alert Eyes Bilateral: positive: Normal inspection Eyes: OU Scleral icterus ENT: positive: ENT inspection nml, Pharynx nml, Dry mucous membranes Neck: positive: Nml inspection, Thyroid nml, No JVD, Stiff neck Respiratory: positive: Chest non-tender, No respiratory distress, Breath sounds nml Cardiovascular: positive: No gallop, Irregularly irregular, Systolic murmur, Decreased pulse(s) Peripheral Pulses: 1+ Radial (R), 1+ Radial (L) Back: positive: Nml inspection Skin: positive: No rash, Warm, Dry, Pallor Extremities: positive: Non-tender, Pedal edema, Joint swelling, Other (Gross BLE edema, pitting.) Neurologic/Psychiatric: positive: Oriented x3, CN's nml (2-12), Motor nml, Sensation nml, Weakness, Depressed mood/affect Reflexes: Bicep (R): 2+, Bicep (L): 2+ - Lab Results Fish Bones: 09/18/17 05:33 09/18/17 05:33 Other Labs: Lab Results x24hrs 09/16/17 09/16/17 09/16/17 Range/Units 05:57 05:57 05:57 WBC (4.8-10.8) x10^3/uL RBC (4.20-5.40) 10^6/uL Hgb (12.0-16.0) g/dL Hct (37.0-47.0) % MCV (81.0-99.0) fL MCH (27.0-31.0) pg MCHC (32.0-36.0) g/dL RDW (12.0-15.0) % Plt Count (130-450) 10^3/uL MPV (7.9-10.8) fL Neut # Lymph # [place] # Eos # Baso # Absolute Nucleated RBC Total Counted Band Neuts % (Manual) (0 - 10) % Abnorm Lymph % (Manual) % Metamyelocytes % ( - 0) % Myelocytes % ( - 0) % Nucleated RBC % Neutrophils # (Manual) (1.5-6.6) 10^3/uL Lymphocytes # (Manual) (1.5-3.5) 10^3/uL Monocytes # (Manual) (0.0-1.0) 10^3/uL Eosinophils # (Manual) (0-0.7) 10^3/uL Basophils # (Manual) (0-0.1) 10^3/uL Differential Comment Platelet Estimate (NORMAL) RBC Morph Micro Appear (NORMAL) Sodium 137 (135-145) mmol/L Potassium 3.6 (3.5-5.0) mmol/L Chloride 102 (101-111) mmol/L Carbon Dioxide 24 (21-32) mmol/L Anion Gap 11.0 (6-13) BUN 36 H (6-20) mg/dL Creatinine 1.2 H (0.4-1.0) mg/dL Estimated GFR (MDRD) 42 L (>89) Glucose 114 H (70-100) mg/dL Calcium 8.5 (8.5-10.3) mg/dL Total Bilirubin 2.5 H (0.2-1.0) mg/dL AST 16 (10-42) IU/L ALT 10 (10-60) IU/L Alkaline Phosphatase 65 (42-121) IU/L B-Natriuretic Peptide 757 H (5-100) pg/mL Total Protein 6.3 L (6.7-8.2) g/dL Albumin 3.5 (3.2-5.5) g/dL Globulin 2.8 (2.1-4.2) g/dL Albumin/Globulin Ratio 1.3 (1.0-2.2) TSH 1.89 (0.34-5.60) uIU/mL 09/16/17 Range/Units 05:57 WBC 1.8 L* (4.8-10.8) x10^3/uL RBC 3.03 L (4.20-5.40) 10^6/uL Hgb 9.4 L (12.0-16.0) g/dL Hct 28.0 L (37.0-47.0) % MCV 92.5 (81.0-99.0) fL MCH 31.2 H (27.0-31.0) pg MCHC 33.7 (32.0-36.0) g/dL RDW 20.1 H (12.0-15.0) % Plt Count 52 L (130-450) 10^3/uL MPV 8.7 (7.9-10.8) fL Neut # Not Reportable Lymph # Not Reportable [place] # Not Reportable Eos # Not Reportable Baso # Not Reportable Absolute Nucleated RBC Not Reportable Total Counted 100 Band Neuts % (Manual) 4 (0 - 10) % Abnorm Lymph % (Manual) 0 % Metamyelocytes % 1 H ( - 0) % Myelocytes % 1 H ( - 0) % Nucleated RBC % Not Reportable Neutrophils # (Manual) 0.9 L (1.5-6.6) 10^3/uL Lymphocytes # (Manual) 0.6 L (1.5-3.5) 10^3/uL Monocytes # (Manual) 0.1 (0.0-1.0) 10^3/uL Eosinophils # (Manual) 0.1 (0-0.7) 10^3/uL Basophils # (Manual) 0.0 (0-0.1) 10^3/uL Differential Comment MANUAL DIFFERENTIAL Platelet Estimate DECREASED (<130,000) (NORMAL) RBC Morph Micro Appear 1+ TEARDROP CELLS (NORMAL) Sodium (135-145) mmol/L Potassium (3.5-5.0) mmol/L Chloride (101-111) mmol/L Carbon Dioxide (21-32) mmol/L Anion Gap (6-13) BUN (6-20) mg/dL Creatinine (0.4-1.0) mg/dL Estimated GFR (MDRD) (>89) Glucose (70-100) mg/dL Calcium (8.5-10.3) mg/dL Total Bilirubin (0.2-1.0) mg/dL AST (10-42) IU/L ALT (10-60) IU/L Alkaline Phosphatase (42-121) IU/L B-Natriuretic Peptide (5-100) pg/mL Total Protein (6.7-8.2) g/dL Albumin (3.2-5.5) g/dL Globulin (2.1-4.2) g/dL Albumin/Globulin Ratio (1.0-2.2) TSH (0.34-5.60) uIU/mL - Diagnostic Imaging Diagnostic Imaging Results: positive: Final report reviewed Assessment/Plan - Problem List (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 A total of 3 units of PRBCs were given. Patient responded well and had an improved H/H of 9.4/28. Plan: We will monitor H/H, and attend to fluid balance using lasix. (2) Atrial fibrillation Impression: Patient has a long history of paroxysmal atrial fibrillation and admits to previous cardioversions. She is no longer anticoagualted due to complications. Patient had an Echocardiogram and was monitored on telemetry for the first 24 hours which did not show any bradycardia or ectopy. Plan: We will continue her beta mohit. Qualifiers: Atrial fibrillation type: chronic Qualified Code(s): I48.2 - Chronic atrial fibrillation (3) Congestive heart failure Impression: Patient has a remote, known history of this. She has orthopnea, which has been going on for quite some time as the patient states that she commonly will use a few pillows at night for sleeping. She also admits to a cough, BLE pitting edema, abdominal girth edema and severe activity intolerance. Patient's fluid balance has been monitored using labs, BNPs, lung sounds, weights and vital signs. and continue home diuretics. Based on results from an echocardiogram, which shows severe abnormal high heart pressures of >70mmHg, an EF of 55-60%, patient was placed on Spironolactone 25mg PO daily, and she has been continued on her furosemide, beta mohit and STU. Plan: Patient will be prescribed new medications upon discharge. We will continue to monitor VS, labs, including BNPs. Qualifiers: Congestive heart failure type: unspecified Congestive heart failure chronicity: acute Qualified Code(s): I50.9 - Heart failure, unspecified (4) Acute renal insufficiency Impression: Patient's history states she has 1 solitary kidney. Creatinine on admission was 1.1 and GFR of 47. Creatinine has been nearly the same since admission with a slight improvement in urine output. Plan: Continue diuresis, but avoiding all other nephrotoxins. We will continue to monitor labs.
[2017-09-16] MEDS: MAGNESIUM OXIDE 400 MG TABLET PO SCH (20:06)
[2017-09-16] MEDS: LISINOPRIL 20 MG TABLET PO SCH (20:06)
[2017-09-16] MEDS: BIMATOPROST 0.01% OPHTH DROPS 2.5 ML RIGHTEYE SCH (20:07)
[2017-09-17] MEDS: ACETAMINOPHEN 325 MG TABLET PO PRN ×2 (01:12→10:01)
[2017-09-17] MEDS: diphenhydrAMINE 25 MG CAPSULE PO PRN (02:42)
[2017-09-17 05:48] LABS: ALBUMIN 3.3 g/dL (3.2-5.5); ALBUMIN/GLOBULIN RATIO 1.1 (1.0-2.2); ALKALINE PHOSPHATASE 64 IU/L (42-121); ALT ALANINE AMINOTRANSFERASE < 10 IU/L (10-60); AST ASPARTATE AMINOTRANSFERASE 16 IU/L (10-42); BILIRUBIN,TOTAL 1.9 mg/dL (0.2-1.0); BUN - BLOOD UREA NITROGEN 31 mg/dL (6-20); CALCIUM 8.4 mg/dL (8.5-10.3); CARBON DIOXIDE - CO2 24 mmol/L (21-32); CHLORIDE 103 mmol/L (101-111); CREATININE 1.1 mg/dL (0.4-1.0); GFR - MDRD 47 (>89); GLUCOSE 109 mg/dL (70-100); SODIUM 138 mmol/L (135-145); TOTAL PROTEIN 6.2 g/dL (6.7-8.2)
[2017-09-17 06:10] LABS: BASOPHILS % (AUTO) 1.2 %; EOSINOPHILS # (AUTO) 0.1 10^3/uL (0.0-0.7); EOSINOPHILS % (AUTO) 5.5 %; HGB - HEMOGLOBIN 9.5 g/dL (12.0-16.0); LYMPHOCYTES # (AUTO) 0.4 10^3/uL (1.5-3.5); LYMPHOCYTES % (AUTO) 29.6 %; MEAN CORPUSCULAR HEMOGLOBIN 31.1 pg (27.0-31.0); MEAN CORPUSCULAR HGB CONC 33.1 g/dL (32.0-36.0); MEAN CORPUSCULAR VOLUME 93.9 fL (81.0-99.0); MEAN PLATELET VOLUME 9.7 fL (7.9-10.8); MONOCYTES # (AUTO) 0.3 10^3/uL (0.0-1.0); MONOCYTES % (AUTO) 17.4 %; NEUTROPHILS # (AUTO) 0.7 10^3/uL (1.5-6.6); NEUTROPHILS % (AUTO) 46.3 %; PLT - PLATELET COUNT 44 10^3/uL (130-450); RED BLOOD COUNT 3.05 10^6/uL (4.20-5.40); RED CELL DISTRIBUTION WIDTH 20.2 % (12.0-15.0)
[2017-09-17] MEDS: PRAMIPEXOLE 0.25 MG TABLET PO SCH ×3 (06:32→21:49)
[2017-09-17 06:37] LABS: PLATELET ESTIMATE, MANUAL DECREASED (<130,000) (NORMAL); PLATELET MORPHOLOGY 1+ LARGE PLATELETS (NORMAL); WHITE BLOOD COUNT 1.5 x10^3/uL (4.8-10.8)
[2017-09-17] MEDS ORDERED: POTASSIUM CHLORIDE 20 MEQ TABLET PO ONE (08:05)
[2017-09-17] MEDS ORDERED: FUROSEMIDE 40 MG/4 ML VIAL IVP SCH (09:00)
[2017-09-17] MEDS ORDERED: SPIRONOLACTONE 25 MG TABLET PO SCH (09:00)
[2017-09-17] MEDS: BRIMONIDINE TARTRATE RIGHTEYE SCH ×2 (09:59→21:40)
[2017-09-17] MEDS: TIMOLOL RIGHTEYE SCH ×2 (09:59→21:40)
[2017-09-17] MEDS: BRINZOLAMIDE 1% OPHTH DROPS RIGHTEYE SCH ×2 (10:00→21:40)
[2017-09-17] MEDS: TOLTERODINE LA 2 MG CAPSULE PO SCH (10:00)
[2017-09-17] MEDS: PREDNISOLONE 1% RIGHTEYE SCH (10:00)
[2017-09-17] MEDS: METOPROLOL SUCCINATE 50 MG TABLET PO SCH (10:00)
[2017-09-17] MEDS: ENOXAPARIN 40 MG/0.4 ML SYRINGE SUBQ SCH (10:02)
[2017-09-17] MEDS: POLYETHYLENE GLYCOL 3350 17 GM PACKET PO SCH (10:19)
[2017-09-17] MEDS: MAGNESIUM OXIDE 400 MG TABLET PO SCH ×2 (10:19→21:39)
[2017-09-17] MEDS: SODIUM CHLORIDE FLUSH 0.9% 10 ML SYRINGE IVP SCH ×3 (10:19→23:45)
--- NOTE | 2017-09-17 21:35 | PROVIDER PROGRESS NOTE ---
Subjective - Prog Note Date Prog Note Date: 09/17/17 Prog Note Time: 08:00 - Subjective Pt reports feeling: Improved Subjective: Gloria wishes to return home and complains about not getting any sleep. She denies increased SOB, chest pain, N/V or an increased cough. Current Medications - Current Medications Current Medications: Active Medications Acetaminophen (Tylenol) 650 mg PO Q4HR PRN PRN Reason: Pain or Fever > 38C (100.4F) Last Admin: 09/18/17 00:18 Dose: 650 mg Diphenhydramine HCl (Benadryl) 25 mg PO Q4HR PRN PRN Reason: Allergy Symptoms Last Admin: 09/18/17 01:05 Dose: 25 mg Enoxaparin Sodium (Lovenox) 40 mg SUBQ DAILY [facility] Last Admin: 09/18/17 09:39 Dose: Not Given Lisinopril (Zestril) 20 mg PO QPM [facility] Last Admin: 09/17/17 21:39 Dose: 20 mg Magnesium Oxide (Mag Ox) 400 mg PO BID [facility] Last Admin: 09/18/17 09:56 Dose: 400 mg Metoprolol Succinate (Toprol Xl) 100 mg PO DAILY [facility] Last Admin: 09/18/17 09:56 Dose: 100 mg Mineral Oil (Cavilon) 1 applic TOP PRN PRN PRN Reason: Skin Care Bimatoprost 0.01% (Ophth Drops 2.5 Ml) 1 each RIGHTEYE QPM [facility] Last Admin: 09/17/17 21:40 Dose: 1 each Non Formulary Med ( Brimonidine Tartrate /Timolol [Combigan 0 .2%-0.5% Eye Drops ] 1 Drops) 1 each RIGHTEYE BID [facility] Last Admin: 09/18/17 09:57 Dose: 1 each Brinzolamide 1% (Ophth Drops) 1 each RIGHTEYE BID [facility] Last Admin: 09/18/17 09:57 Dose: 1 each Prednisolone Ophth (Drops 1%) 1 each RIGHTEYE DAILY [facility] Last Admin: 09/18/17 09:58 Dose: 1 each Polyethylene Glycol (Miralax) 17 gm PO DAILY [facility] Last Admin: 09/18/17 09:56 Dose: Not Given Pramipexole Dihydrochloride (Mirapex) 0.25 mg PO TID [facility] Last Admin: 09/18/17 05:35 Dose: 0.25 mg Sodium Chloride (Normal Saline Flush 0.9%) 10 ml IVP PRN PRN PRN Reason: NEEDED PER PROVIDER ORDERS Last Admin: 09/16/17 06:48 Dose: 10 ml Sodium Chloride (Normal Saline Flush 0.9%) 10 ml IVP 0100,0900,1700 [facility] Last Admin: 09/18/17 09:58 Dose: 10 ml Spironolactone (Aldactone) 25 mg PO BID [facility] Last Admin: 09/18/17 09:56 Dose: 25 mg Tolterodine Tartrate (Detrol La) 4 mg PO DAILY [facility] Last Admin: 09/18/17 09:54 Dose: 4 mg Atorvastatin [Lipitor] 20 mg PO QPM 04/02/16 Cholecalciferol (Vitamin D3) [Vitamin D3] 2,000 unit PO DAILY 04/02/16 Lisinopril [Zestril] 20 mg PO QPM 04/02/16 Metoprolol Succinate 200 mg PO DAILY 04/02/16 Tolterodine [Detrol LA] 4 mg PO DAILY 04/02/16 Bimatoprost 0.01% Ophth Dops [Lumigan 0.01% Ophth Drops] 1 drops RIGHTEYE QPM Brimonidine Tartrate/Timolol [Combigan 0.2%-0.5% Eye Drops] 1 drops RIGHTEYE BID 08/02/17 Brinzolamide 1% Ophth Drops [Azopt 1% Ophth Drops] 1 drops RIGHTEYE BID prednisoLONE 1% OPHTH DROPS [Pred Forte 1% Ophth Drops] 1 drops RIGHTEYE DAILY 08/02/17 Lenalidomide [Revlimid] 10 mg PO DAILY 09/02/17 Aspirin 81 mg PO DAILY 09/06/17 Multivitamin [Theragran] 1 tab PO DAILY 09/15/17 Objective - Vital Signs/Intake & Output Reviewed Vital Signs: Yes Vital Signs: Vital Signs x48h Temp Pulse Pulse Resp Resp BP BP 09/17/17 15:48 36.7 C 81 24 137/80 H 09/17/17 14:08 89 18 135/75 H Pulse Ox Pulse Ox 09/17/17 15:48 96 09/17/17 14:08 98 Intake & Output: Intake & Output 09/14/17 09/15/17 09/16/17 09/17/17 23:59 23:59 23:59 23:59 Intake Total 1328 1361 1500 Output Total 833 201 1261 Balance 1178 561 74 - Objective General Appearance: positive: Alert, Moderate distress, Anxious Eyes Bilateral: positive: Normal inspection ENT: positive: ENT inspection nml, Pharynx nml, Dry mucous membranes Neck: positive: Nml inspection, Thyroid nml, No JVD, Stiff neck Respiratory: positive: Chest non-tender, No respiratory distress, Wheezes, Rhonchi Cardiovascular: positive: No gallop, Irregularly irregular, Systolic murmur, Decreased pulse(s) Peripheral Pulses: 1+ Radial (R), 1+ Radial (L) Back: positive: Nml inspection Skin: positive: No rash, Warm, Dry, Pallor Extremities: positive: Non-tender, Pedal edema, Joint swelling, Other (gross edema BLE, chronic and worse while sitting.) Neurologic/Psychiatric: positive: Oriented x3, CN's nml (2-12), Motor nml, Sensation nml, Weakness, Depressed mood/affect Reflexes: Bicep (R): 2+, Bicep (L): 2+ - Lab Results Fish Bones: 09/18/17 05:33 09/18/17 05:33 Other Labs: Lab Results x24hrs 09/17/17 09/17/17 09/17/17 Range/Units 04:54 04:54 04:54 WBC 1.5 L* (4.8-10.8) x10^3/uL RBC 3.05 L (4.20-5.40) 10^6/uL Hgb 9.5 L (12.0-16.0) g/dL Hct 28.7 L (37.0-47.0) % MCV 93.9 (81.0-99.0) fL MCH 31.1 H (27.0-31.0) pg MCHC 33.1 (32.0-36.0) g/dL RDW 20.2 H (12.0-15.0) % Plt Count 44 L (130-450) 10^3/uL MPV 9.7 (7.9-10.8) fL Neut # 0.7 L (1.5-6.6) 10^3/uL Lymph # 0.4 L (1.5-3.5) 10^3/uL [place] # 0.3 (0.0-1.0) 10^3/uL Eos # 0.1 (0.0-0.7) 10^3/uL Baso # 0.0 (0.0-0.1) 10^3/uL Absolute Nucleated RBC 0.01 x10^3/uL Nucleated RBC % 0.9 /100WBC Manual Slide Review Indicated Platelet Estimate DECREASED (<130,000) (NORMAL) Platelet Morphology 1+ LARGE PLATELETS (NORMAL) RBC Morph Micro Appear 1+ SCHISTOCYTES (NORMAL) Sodium 138 (135-145) mmol/L Potassium 3.5 (3.5-5.0) mmol/L Chloride 103 (101-111) mmol/L Carbon Dioxide 24 (21-32) mmol/L Anion Gap 11.0 (6-13) BUN 31 H (6-20) mg/dL Creatinine 1.1 H (0.4-1.0) mg/dL Estimated GFR (MDRD) 47 L (>89) Glucose 109 H (70-100) mg/dL Calcium 8.4 L (8.5-10.3) mg/dL Total Bilirubin 1.9 H (0.2-1.0) mg/dL AST 16 (10-42) IU/L ALT < 10 L (10-60) IU/L Alkaline Phosphatase 64 (42-121) IU/L B-Natriuretic Peptide 644 H (5-100) pg/mL Total Protein 6.2 L (6.7-8.2) g/dL Albumin 3.3 (3.2-5.5) g/dL Globulin 2.9 (2.1-4.2) g/dL Albumin/Globulin Ratio 1.1 (1.0-2.2) - Diagnostic Imaging Diagnostic Imaging Results: positive: Final report reviewed Assessment/Plan - Problem List (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 A total of 3 units of PRBCs were given. Patient responded well and had an improved H/H of 9.4/28. Labs continue to improve with the last H/H being up to 9.5/28.7. Plan: We will monitor H/H, and attend to fluid balance using lasix and Spironolactone. (2) Atrial fibrillation Qualifiers: Atrial fibrillation type: chronic Qualified Code(s): I48.2 - Chronic atrial fibrillation (3) Congestive heart failure Impression: Patient has a remote, known history of this. She has orthopnea, which has been going on for quite some time as the patient states that she commonly will use a few pillows at night for sleeping. She also admits to a cough, BLE pitting edema, abdominal girth edema and severe activity intolerance. Patient's fluid balance has been monitored using labs, BNPs, lung sounds, weights and vital signs. and continue home diuretics. Based on results from an echocardiogram, which shows severe abnormal high heart pressures of >70mmHg, an EF of 55-60%, patient was placed on Spironolactone 25mg PO daily, and she has been continued on her furosemide, beta mohit and STU. Plan: Patient will be prescribed new medications upon discharge. We will continue to monitor VS, labs, including BNPs. Qualifiers: Congestive heart failure type: combined Congestive heart failure chronicity : acute on chronic Qualified Code(s): I50.43 - Acute on chronic combined systolic (congestive) and diastolic (congestive) heart failure (4) Acute renal insufficiency Impression: Patient's history states she has 1 solitary kidney. Creatinine on admission was 1.1 and GFR of 47. Creatinine has been nearly the same since admission with a slight improvement in urine output. Plan: Continue diuresis, but avoiding all other nephrotoxins. We will continue to monitor labs.
[2017-09-17] MEDS: LISINOPRIL 20 MG TABLET PO SCH (21:39)
[2017-09-17] MEDS: BIMATOPROST 0.01% OPHTH DROPS 2.5 ML RIGHTEYE SCH (21:40)
[2017-09-18] MEDS: ACETAMINOPHEN 325 MG TABLET PO PRN (00:18)
[2017-09-18] MEDS: diphenhydrAMINE 25 MG CAPSULE PO PRN (01:05)
[2017-09-18] MEDS: PRAMIPEXOLE 0.25 MG TABLET PO SCH (05:35)
[2017-09-18 06:14] LABS: EOSINOPHILS % (AUTO) 2.8 %; HGB - HEMOGLOBIN 10.4 g/dL (12.0-16.0); LYMPHOCYTES # (AUTO) 0.5 10^3/uL (1.5-3.5); LYMPHOCYTES % (AUTO) 31.4 %; MEAN CORPUSCULAR HEMOGLOBIN 31.2 pg (27.0-31.0); MEAN CORPUSCULAR VOLUME 94.6 fL (81.0-99.0); MEAN PLATELET VOLUME 9.3 fL (7.9-10.8); MONOCYTES # (AUTO) 0.4 10^3/uL (0.0-1.0); MONOCYTES % (AUTO) 21.3 %; NEUTROPHILS # (AUTO) 0.7 10^3/uL (1.5-6.6); NEUTROPHILS % (AUTO) 43.5 %; PLT - PLATELET COUNT 38 10^3/uL (130-450); RED BLOOD COUNT 3.32 10^6/uL (4.20-5.40); RED CELL DISTRIBUTION WIDTH 20.3 % (12.0-15.0)
[2017-09-18 06:20] LABS: WHITE BLOOD COUNT 1.7 x10^3/uL (4.8-10.8)
[2017-09-18 06:24] LABS: ALBUMIN 3.5 g/dL (3.2-5.5); ALBUMIN/GLOBULIN RATIO 1.1 (1.0-2.2); ALKALINE PHOSPHATASE 68 IU/L (42-121); ALT ALANINE AMINOTRANSFERASE < 10 IU/L (10-60); AST ASPARTATE AMINOTRANSFERASE 15 IU/L (10-42); BILIRUBIN,TOTAL 1.7 mg/dL (0.2-1.0); BUN - BLOOD UREA NITROGEN 22 mg/dL (6-20); CALCIUM 8.7 mg/dL (8.5-10.3); CARBON DIOXIDE - CO2 26 mmol/L (21-32); CHLORIDE 100 mmol/L (101-111); CREATININE 0.8 mg/dL (0.4-1.0); GFR - MDRD 68 (>89); GLUCOSE 120 mg/dL (70-100); SODIUM 136 mmol/L (135-145); TOTAL PROTEIN 6.7 g/dL (6.7-8.2)
[2017-09-18 06:46] LABS: PLATELET ESTIMATE, MANUAL DECREASED (<130,000) (NORMAL); PLATELET MORPHOLOGY 1+ LARGE PLATELETS (NORMAL)
[2017-09-18 07:50] VITALS: BP 174/88
[2017-09-18] MEDS ORDERED: FUROSEMIDE 40 MG/4 ML VIAL IVP SCH (08:13)
[2017-09-18] MEDS ORDERED: POTASSIUM CHLORIDE 20 MEQ TABLET PO ONE (08:15)
[2017-09-18] MEDS ORDERED: SPIRONOLACTONE 25 MG TABLET PO SCH (09:00)
[2017-09-18] MEDS: ENOXAPARIN 40 MG/0.4 ML SYRINGE SUBQ SCH (09:39)
[2017-09-18] MEDS: TOLTERODINE LA 2 MG CAPSULE PO SCH (09:54)
[2017-09-18] MEDS: POLYETHYLENE GLYCOL 3350 17 GM PACKET PO SCH (09:56)
[2017-09-18] MEDS: METOPROLOL SUCCINATE 50 MG TABLET PO SCH (09:56)
[2017-09-18] MEDS: MAGNESIUM OXIDE 400 MG TABLET PO SCH (09:56)
[2017-09-18] MEDS: BRINZOLAMIDE 1% OPHTH DROPS RIGHTEYE SCH (09:57)
[2017-09-18] MEDS: TIMOLOL RIGHTEYE SCH (09:57)
[2017-09-18] MEDS: BRIMONIDINE TARTRATE RIGHTEYE SCH (09:57)
[2017-09-18] MEDS: PREDNISOLONE 1% RIGHTEYE SCH (09:58)
[2017-09-18] MEDS: SODIUM CHLORIDE FLUSH 0.9% 10 ML SYRINGE IVP SCH (09:58)
[2017-09-18] MEDS ORDERED: FUROSEMIDE INJ 100mg VIAL 80 MG in SODIUM CHLORIDE 0.9% 50 ML IV SCH (10:30)
[2017-09-18] MEDS ORDERED: FUROSEMIDE 40 MG TABLET PO ONE (10:40)
[2017-09-18] MEDS ORDERED: MAGNESIUM OXIDE 400 MG TABLET PO ONE (10:41)
--- NOTE | 2017-09-18 11:04 | Discharge Plan ---
Discharge Plan Disposition: Home, Self Care Condition: Good Prescriptions: Furosemide [Lasix] 80 mg PO DAILY #30 tablet Lisinopril [Zestril] 10 mg PO DAILY #30 tablet Magnesium Oxide [Mag Ox] 400 mg PO BID #60 tablet Spironolactone [Aldactone] 25 mg PO BID #60 tablet Diet: Cardiac Activity Restrictions: No Restrictions Shower Restrictions: No Driving Restrictions: Yes Weight Bearing: Full Weight Instruction Topics: Pramipexole tablets Additional Instructions or Follow Up instructions: You were admitted because your blood counts were low, and you were given red blood cells and your blood counts have stayed in a good range without evidence of blood loss. You had an echocardiogram which showed right sided heart failure which explains why your abdomen is very round and your legs/feet get swollen. You will be given an oxygen walking test and may qualify for home oxygen. Your fluid balance has been a challenge and given your right heart failure, you were put on a medicine called Spironolactone which compliments your other medication called furosemide (a diuretic), which means you should STOP your potassium supplement. You had horrible leg cramps, so a magnesium was check which was low. You should continue taking magnesium to prevent this. Please see your PCP within a week. Expect a call from Julianna Trevizo, oncology INSTRUCTIONAL TECHNOLOGY COORDINATOR sometime ~TuesdaySeptember 20. She paid you a visit during your stay and will give you further instructions on the course of treatment for your myelodysplastic syndrome. No Smoking: If you smoke, Please STOP! Call for help. Follow-up with: Cal Frank MD [Primary Care Provider] -
--- NOTE | 2017-09-18 15:15 | DISCHARGE SUMMARY ---
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 Atrial fibrillation (I48.91) chronic, medically managed. CHF (congestive heart failure), NYHA class III (I50.9) worsening on this admission, new prescriptions. Acute renal insufficiency (N28.9) ongoing, stable at the time of discharge. Pulmonary hypertension (I27.20) stable, new medications on discharge. - HPI History of Present Illness: Swati Rodney is an elderly 87-year old female with a past medical history of myelodysplastic syndrome-who she sees our [facility], glaucoma, atrial fibrillation, murmur, DM type 2, herpes zoster, osteoarthritis, recent CHF and glaucoma. She arrived in our ED with the complaints that over the past week she has had an increased cough, BLE leg edema, abdominal edema and less tolerant of activity. She also notes that she can only ambulate across the room before feeling winded and breathless. She denies chest pain, nausea, vomiting or a recent illness. She admits to recent chest palpitations, mild anorexia, and a cough. She states that she has not been resting well because she has to use the toilet frequently at night. She will be admitted for administration of blood, telemetry monitoring, an echocardiogram in the AM to assess a progression of her CHF and to titrate fluid balance. 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 A total of 3 units of PRBCs were given. Patient responded well and had an improved H/H of 9.4/28. Labs continue to improve with the last H/H being up to 9.5/28.7. Patient's H/H blood levels were monitored and fluid balance was maintained using lasix and Spironolactone. (2) Atrial fibrillation- Patient was monitored on telemetry for the first 24 hours of stay. She stayed in atrial fibrillation and she was continued on home medications; including Metoprolol XL. (3) Congestive heart failure- Patient has a remote, known history of this. She has orthopnea, which has been going on for quite some time as the patient states that she commonly will use a few pillows at night for sleeping. She also admits to a cough, BLE pitting edema, abdominal girth edema and severe activity intolerance. Patient's fluid balance has been monitored using labs, BNPs, lung sounds, weights and vital signs. and continue home diuretics. Based on results from an echocardiogram, which shows severe abnormal high heart pressures of >70mmHg, an EF of 55-60%, patient was placed on Spironolactone 25mg PO daily, and she has been continued on her furosemide, beta mohit and STU. Patient's vital signs and labs were continuously monitored. (4) Acute renal insufficiency- Patient's history states she has 1 solitary kidney. Creatinine on admission was 1.1 and GFR of 47. Creatinine has been nearly the same since admission with a slight improvement in urine output. Patient was stabilized using diuretics, and nephrotoxins were avoided. Disposition: Patient was discharged via private car home with care givers in stable condition. A few medications adjustments were made. She passed an oxygen saturation test. - ALLERGIES Allergies/Adverse Reactions: Allergies Allergy/AdvReac Type Severity Reaction Status Date / Time lidocaine Allergy Unknown Verified 09/20/17 11:48 lisinopril Allergy Rash Verified 09/20/17 11:48 - MEDICATIONS Home Medications: Ambulatory Orders Medication Instructions Recorded Confirmed Atorvastatin [Lipitor] 20 mg PO QPM 04/02/16 09/15/17 Cholecalciferol (Vitamin D3) 2,000 unit PO DAILY 04/02/16 09/15/17 [Vitamin D3] Metoprolol Succinate 200 mg PO DAILY 04/02/16 09/15/17 Tolterodine [Detrol LA] 4 mg PO DAILY 04/02/16 09/15/17 Bimatoprost 0.01% Ophth Dops 1 drops RIGHTEYE QPM 08/02/17 09/15/17 [Lumigan 0.01% Ophth Drops] Brimonidine Tartrate/Timolol 1 drops RIGHTEYE BID 08/02/17 09/15/17 [Combigan 0.2%-0.5% Eye Drops] Brinzolamide 1% Ophth Drops [Azopt 1 drops RIGHTEYE BID 08/02/17 09/15/17 1% Ophth Drops] prednisoLONE 1% OPHTH DROPS [Pred 1 drops RIGHTEYE DAILY 08/02/17 09/15/17 Forte 1% Ophth Drops] Aspirin 81 mg PO DAILY 09/06/17 09/15/17 Multivitamin [Theragran] 1 tab PO DAILY 09/15/17 09/15/17 Furosemide [Lasix] 80 mg PO DAILY #30 tablet 09/18/17 Lisinopril [Zestril] 10 mg PO DAILY #30 tablet 09/18/17 Magnesium Oxide [Mag Ox] 400 mg PO BID #60 tablet 09/18/17 Spironolactone [Aldactone] 25 mg PO BID #60 tablet 09/18/17 - PHYSICAL EXAM AT DISCHARGE General Appearance: positive: No acute distress, Alert Eyes Bilateral: positive: Normal inspection ENT: positive: ENT inspection nml, No signs of dehydration Neck: positive: Thyroid nml, No JVD Respiratory: positive: Chest non-tender, No respiratory distress, Wheezes, Other (improved from previous, a few scattered crackles.) Cardiovascular: positive: No gallop, Irregularly irregular, Systolic murmur, Decreased pulse(s) Peripheral Pulses: positive: 1+ (popiteal) Abdomen: positive: Non-tender, Nml bowel sounds, Hepatomegaly Back: positive: Nml inspection Skin: positive: No rash, Warm, Dry Extremities: positive: Non-tender, Full ROM, Pedal edema, Joint swelling, Other (Gross BLE edema.) Neurologic/Psychiatric: positive: Oriented x3, CN's nml (2-12), Motor nml, Sensation nml, Weakness, Depressed mood/affect Reflexes: Bicep (R): 2+, Bicep (L): 2+ - LABS Result Diagrams: 09/18/17 05:33 09/18/17 05:33 - DIAGNOSTIC IMAGING Diagnostic Imaging Results: Final report reviewed Diagnostic Imaging Results Comments: EXAM: CHEST RADIOGRAPHY EXAM DATE: 09/20/2017 12:37 PM. CLINICAL HISTORY: Dyspnea. COMPARISON: Chest x-ray 09/15/2017. TECHNIQUE: 1 view. FINDINGS: Lungs/Pleura: Small left pleural effusion with adjacent atelectasis and potential airspace disease. Mild pulmonary vascular congestion. Medial left lung apex is obscured by patient's chin. Mediastinum: Cardiomegaly. Dense atherosclerotic aortic calcifications. Other: Prior thoracic spine fusion. IMPRESSION: 1. Mild congestive heart failure. 2. Small left pleural effusion with adjacent atelectasis and potential airspace disease. - FOLLOW UP Follow Up: Disposition: Home, Self Care Condition: Good Prescriptions: Furosemide [Lasix] 80 mg PO DAILY #30 tablet Lisinopril [Zestril] 10 mg PO DAILY #30 tablet Magnesium Oxide [Mag Ox] 400 mg PO BID #60 tablet Spironolactone [Aldactone] 25 mg PO BID #60 tablet Diet: Cardiac Activity Restrictions: No Restrictions Shower Restrictions: No Driving Restrictions: Yes Weight Bearing: Full Weight Instruction Topics: Pramipexole tablets Additional Instructions or Follow Up instructions: You were admitted because your blood counts were low, and you were given red blood cells and your blood counts have stayed in a good range without evidence of blood loss. You had an echocardiogram which showed right sided heart failure which explains why your abdomen is very round and your legs/feet get swollen. You will be given an oxygen walking test and may qualify for home oxygen. Your fluid balance has been a challenge and given your right heart failure, you were put on a medicine called Spironolactone which compliments your other medication called furosemide (a diuretic), which means you should STOP your potassium supplement. You had horrible leg cramps, so a magnesium was check which was low. You should continue taking magnesium to prevent this. Please see your PCP within a week. Expect a call from Julianna Trevizo, oncology [employer] sometime ~TuesdaySeptember 20. She paid you a visit during your stay and will give you further instructions on the course of treatment for your myelodysplastic syndrome. - TIME SPENT Time Spent in Discharge (Minutes): 60
== END 2017-09-18 13:20 | disposition home or self-care (01) | DRG 292 ==
LOC: ED 12:02 → MS2 14:08
PROVIDERS: ADMIT Nurse Practitioner; ATTEND Nurse Practitioner
PROC: 30253R1 (ICD-10-PCS; principal; 2017-09-15)
PROC: 30253N1 (ICD-10-PCS; 2017-09-15)
DX: I11.0 Hypertensive heart disease with heart failure (principal); Q60.0 Renal agenesis, unilateral; I50.9 Heart failure, unspecified; M19.90 Unspecified osteoarthritis, unspecified site; E11.39 Type 2 diabetes mellitus with other diabetic ophthalmic complication; K92.2 Gastrointestinal hemorrhage, unspecified; H40.9 Unspecified glaucoma; D61.818 Other pancytopenia; D46.9 Myelodysplastic syndrome, unspecified; Z85.828 Personal history of other malignant neoplasm of skin; Z66 Do not resuscitate; D46.4 Refractory anemia, unspecified; D63.8 Anemia in other chronic diseases classified elsewhere; N28.9 Disorder of kidney and ureter, unspecified; E78.00 Pure hypercholesterolemia, unspecified; Z96.649 Presence of unspecified artificial hip joint; Z82.49 Family history of ischemic heart disease and other diseases of the circulatory system; I48.2 Chronic atrial fibrillation; I48.0 Paroxysmal atrial fibrillation
CPT/HCPCS: 36415; 71046; 80053; 83690; 83735; 83880; 84443; 84484; 85025; 85379; 86850; 86900; 86901; 86920; 86965; 93005; 93306; 94761; 96374; 96375; 99284; 99285

== ENCOUNTER 2017-09-20 11:39 | Emergency (ER) | payer MEDICARE, OTHER ==
--- NOTE | 2017-09-20 12:30 | ED Physician Documentation ---
PD HPI DYSPNEA - Stated complaint Stated Complaint: BILAT LEG SWELLING - Chief complaint Chief Complaint: General - History obtained from History obtained from: Patient, Caregiver - History of Present Illness Timing - onset: Today Timing - onset during: Rest Timing - duration: Hours Timing - details: Gradual onset, Still present Inciting event(s): Other (recent hospitalization for anemia and CHF) Worsened by: Exertion Associated symptoms: Bilateral edema. No: Fever, Cough, Hemoptysis, Wheezing, Chest pain / discomfort Similar symptoms before: Diagnosis (CHF) Recently seen: Admitted - Additional information Additional information: 87-year-old female with a history of myeloproliferative disorder and significant anemia has been admitted to the hospital for blood transfusion. She received 3 units of blood and Lasix in the hospital. She was much improved at the time of discharge breathing much better and blood counts were much better. Her caregiver notes that today she has noticed that the patient is short of breath when she tries to walk across a room and she is noted that her feet are swollen. She did notice that earlier today when she woke her feet were normal and later in the morning her legs are swollen she had take her knee brace off it was indenting her leg and her shoes are fitting tighter.The patient herself does not feel much different than her usual she is not complaining of symptoms. Review of Systems Constitutional: denies: Fever Eyes: denies: Decreased vision Ears: denies: Ear pain Nose: denies: Congestion Throat: denies: Sore throat Cardiac: denies: Chest pain / pressure, Palpitations Respiratory: reports: Dyspnea. denies: Cough GI: denies: Abdominal Pain, Nausea, Vomiting : denies: Dysuria, Frequency Skin: denies: Rash Musculoskeletal: reports: Extremity swelling. denies: Neck pain, Back pain, Extremity pain Neurologic: denies: Generalized weakness, Focal weakness, Numbness PD PAST MEDICAL HISTORY - Past Medical History Past Medical History: Yes Cardiovascular: Congestive heart failure, Hypertension, High cholesterol, Atrial fibrillation, Murmur Respiratory: None Neuro: None Endocrine/Autoimmune: Type 2 diabetes GI: None : Retention, Incontinence, Renal insuffiency, Frequency, Other HEENT: Glaucoma Psych: None Musculoskeletal: Osteoarthritis, Fatigue, Chronic back pain Derm: Herpes zoster - Past Surgical History Past Surgical History: Yes General: Appendectomy Ortho: Hip replacement /[employer]PER[employer]: Hysterectomy HEENT: Cataracts Derm: Skin cancer surgery - Present Medications Home Medications: Ambulatory Orders Medication Instructions Recorded Confirmed Atorvastatin [Lipitor] 20 mg PO QPM 04/02/16 09/15/17 Cholecalciferol (Vitamin D3) 2,000 unit PO DAILY 04/02/16 09/15/17 [Vitamin D3] Metoprolol Succinate 200 mg PO DAILY 04/02/16 09/15/17 Tolterodine [Detrol LA] 4 mg PO DAILY 04/02/16 09/15/17 Bimatoprost 0.01% Ophth Dops 1 drops RIGHTEYE QPM 08/02/17 09/15/17 [Lumigan 0.01% Ophth Drops] Brimonidine Tartrate/Timolol 1 drops RIGHTEYE BID 08/02/17 09/15/17 [Combigan 0.2%-0.5% Eye Drops] Brinzolamide 1% Ophth Drops [Azopt 1 drops RIGHTEYE BID 08/02/17 09/15/17 1% Ophth Drops] prednisoLONE 1% OPHTH DROPS [Pred 1 drops RIGHTEYE DAILY 08/02/17 09/15/17 Forte 1% Ophth Drops] Aspirin 81 mg PO DAILY 09/06/17 09/15/17 Multivitamin [Theragran] 1 tab PO DAILY 09/15/17 09/15/17 Furosemide [Lasix] 80 mg PO DAILY #30 tablet 09/18/17 Lisinopril [Zestril] 10 mg PO DAILY #30 tablet 09/18/17 Magnesium Oxide [Mag Ox] 400 mg PO BID #60 tablet 09/18/17 Spironolactone [Aldactone] 25 mg PO BID #60 tablet 09/18/17 - Allergies Allergies/Adverse Reactions: Allergies Allergy/AdvReac Type Severity Reaction Status Date / Time lidocaine Allergy Unknown Verified 09/20/17 11:48 lisinopril Allergy Rash Verified 09/20/17 11:48 - Social History Does the pt smoke?: No Smoking Status: Never smoker Does the pt drink ETOH?: No Does the pt have substance abuse?: No - Immunizations Immunizations are current?: Yes - POLST Patient has POLST: No POLST Status: DNR PD ED PE NORMAL - Vitals Vital signs reviewed: Yes (Normal) - General General: Alert and oriented X 3, No acute distress, Well developed/nourished - HEENT HEENT: Atraumatic, PERRL, EOMI - Neck Neck: Supple, no meningeal sign, No bony TTP - Cardiac Cardiac: Other (irregularly irregular with 2/6 holosystolic murmer at LSB) - Respiratory Respiratory: No respiratory distress, Clear bilaterally - Abdomen Abdomen: Soft, Non tender - Back Back: No CVA TTP, No spinal TTP - Derm Derm: Normal color, Warm and dry, No rash - Extremities Extremities: No deformity, No edema - Neuro Neuro: No motor deficit, No sensory deficit Eye Opening: Spontaneous Motor: Obeys Commands Verbal: Oriented GCS Score: 15 - Psych Psych: Normal mood, Normal affect Results - Vitals Vitals: Vital Signs - 24 hr 09/20/17 09/20/17 11:44 13:56 Temperature 36.3 C L Heart Rate 68 81 Respiratory 18 21 Rate Blood Pressure 120/65 107/67 O2 Saturation 97 99 Oxygen O2 Source [] Room air O2 Source Room air - EKG (time done) 1214 Rate: Rate (enter#) (71) Rhythm: Atrial fibrillation Intervals: RBBB QRS: LVH Compare to prior EKG: Changed from prior EKG (SPT 09-18-17 rate has decreased) Computer interpretation: Agree with computer - Labs Labs: Laboratory Tests 09/20/17 09/20/17 09/20/17 12:20 12:20 12:20 WBC 1.7 L* RBC 3.32 L Hgb 10.5 L Hct 31.1 L MCV 93.8 MCH 31.7 H MCHC 33.8 RDW 18.8 H Plt Count 33 L* MPV 8.9 Neut # 0.6 L Lymph # 0.8 L Castro # 0.3 Eos # 0.1 Baso # 0.0 Absolute Nucleated RBC 0.00 Nucleated RBC % 0.1 Manual Slide Review Indicated Platelet Estimate DECREASED (<130,000) RBC Morph Micro Appear 3+ ANISOCYTOSIS PT 15.6 H INR 1.4 H Sodium 134 L Potassium 3.8 Chloride 95 L Carbon Dioxide 27 Anion Gap 12.0 BUN 31 H Creatinine 1.1 H Estimated GFR (MDRD) 47 L Glucose 121 H Calcium 8.8 Total Bilirubin 1.1 H AST 18 ALT < 10 L Alkaline Phosphatase 67 Troponin I B-Natriuretic Peptide Total Protein 7.0 Albumin 3.5 Globulin 3.5 Albumin/Globulin Ratio 1.0 Lipase 16 L 09/20/17 09/20/17 12:20 12:20 WBC RBC Hgb Hct MCV MCH MCHC RDW Plt Count MPV Neut # Lymph # Castro # Eos # Baso # Absolute Nucleated RBC Nucleated RBC % Manual Slide Review Platelet Estimate RBC Morph Micro Appear PT INR Sodium Potassium Chloride Carbon Dioxide Anion Gap BUN Creatinine Estimated GFR (MDRD) Glucose Calcium Total Bilirubin AST ALT Alkaline Phosphatase Troponin I 0.04 B-Natriuretic Peptide 610 H Total Protein Albumin Globulin Albumin/Globulin Ratio Lipase - Rads (name of study) 2 veiw chest Radiology: Prelim report reviewed (Impression: 1. Mild congestive heart failure. Small left pleural effusion with adjacent atelectasis and potential airspace disease.), EMP read indepedently, See rad report Procedures - IVC sono (time) 1225 Bedside IVC sono: IVC measures (cm) (2.49), IVC collapsed c insp (cm) (2.20), Collapsibility index (0.11), High CVP, Fluid overload PD MEDICAL DECISION MAKING - ED course Complexity details: reviewed old records, reviewed results, re-evaluated patient , considered differential, d/w patient, d/w family ED course: 87-year-old female with recent transfusion for significant anemia has been discharged from hospital 2 days ago she appears to have some shift of fluid and she has a bit of edema in the lower extremities and some exertional dyspnea. She is administered some intravenous Lasix for an elevated central venous pressure. Departure - Departure Disposition: 01 Home, Self Care Clinical Impression: Congestive heart failure Qualifiers: Congestive heart failure type: combined Congestive heart failure chronicity: acute on chronic Qualified Code(s): I50.43 - Acute on chronic combined systolic (congestive) and diastolic (congestive) heart failure Instructions: ED CHF General Follow-Up: Cal Frank MD [Provider Admit Priv/Credential] -
[2017-09-20 12:33] LABS: BASOPHILS % (AUTO) 1.4 %; EOSINOPHILS # (AUTO) 0.1 10^3/uL (0.0-0.7); EOSINOPHILS % (AUTO) 3.2 %; HGB - HEMOGLOBIN 10.5 g/dL (12.0-16.0); LYMPHOCYTES # (AUTO) 0.8 10^3/uL (1.5-3.5); LYMPHOCYTES % (AUTO) 46.4 %; MEAN CORPUSCULAR HEMOGLOBIN 31.7 pg (27.0-31.0); MEAN CORPUSCULAR HGB CONC 33.8 g/dL (32.0-36.0); MEAN CORPUSCULAR VOLUME 93.8 fL (81.0-99.0); MEAN PLATELET VOLUME 8.9 fL (7.9-10.8); MONOCYTES # (AUTO) 0.3 10^3/uL (0.0-1.0); MONOCYTES % (AUTO) 16.4 %; NEUTROPHILS % (AUTO) 32.6 %; RED BLOOD COUNT 3.32 10^6/uL (4.20-5.40); RED CELL DISTRIBUTION WIDTH 18.8 % (12.0-15.0)
[2017-09-20] MEDS ORDERED: FUROSEMIDE 40 MG/4 ML VIAL IVP STA (12:33)
[2017-09-20 12:34] LABS: WHITE BLOOD COUNT 1.7 x10^3/uL (4.8-10.8)
[2017-09-20 12:35] LABS: NEUTROPHILS # (AUTO) 0.6 10^3/uL (1.5-6.6); PLT - PLATELET COUNT 33 10^3/uL (130-450)
[2017-09-20 12:42] LABS: ALBUMIN 3.5 g/dL (3.2-5.5); ALKALINE PHOSPHATASE 67 IU/L (42-121); ALT ALANINE AMINOTRANSFERASE < 10 IU/L (10-60); AST ASPARTATE AMINOTRANSFERASE 18 IU/L (10-42); BILIRUBIN,TOTAL 1.1 mg/dL (0.2-1.0); BUN - BLOOD UREA NITROGEN 31 mg/dL (6-20); CALCIUM 8.8 mg/dL (8.5-10.3); CARBON DIOXIDE - CO2 27 mmol/L (21-32); CHLORIDE 95 mmol/L (101-111); CREATININE 1.1 mg/dL (0.4-1.0); GFR - MDRD 47 (>89); GLUCOSE 121 mg/dL (70-100); LIPASE 16 U/L (22-51); SODIUM 134 mmol/L (135-145)
[2017-09-20 12:48] LABS: PLATELET ESTIMATE, MANUAL DECREASED (<130,000) (NORMAL)
--- NOTE | 2017-09-20 12:48 | XRAY Report ---
EXAM: CHEST RADIOGRAPHY EXAM DATE: 09/20/2017 12:37 PM. CLINICAL HISTORY: Dyspnea. COMPARISON: Chest x-ray 09/15/2017. TECHNIQUE: 1 view. FINDINGS: Lungs/Pleura: Small left pleural effusion with adjacent atelectasis and potential airspace disease. M ild pulmonary vascular congestion. Medial left lung apex is obscured by patient's chin. Mediastinum: Cardiomegaly. Dense atherosclerotic aortic calcifications. Other: Prior thoracic spine fusion. IMPRESSION: 1. Mild congestive heart failure. 2. Small left pleural effusion with adjacent atelectasis and potential airspace disease. [facility] Referring Provider Line: [phone] SITE ID: [id number]
[2017-09-20 12:49] LABS: RBC MORPHOLOGY (MULTIPLE) 3+ ANISOCYTOSIS (NORMAL)
[2017-09-20 13:46] LABS: INR 1.4 (0.8-1.2); PT - PROTHROMBIN TIME 15.6 secs (9.9-12.6)
[2017-09-20 13:57] VITALS: BP 107/67
== END 2017-09-20 14:16 | disposition home or self-care (01) ==
LOC: ED 11:39
DX: I11.0 Hypertensive heart disease with heart failure (principal); I50.43 Acute on chronic combined systolic (congestive) and diastolic (congestive) heart failure; I48.91 Unspecified atrial fibrillation; I45.10 Unspecified right bundle-branch block; E11.9 Type 2 diabetes mellitus without complications; Z79.82 Long term (current) use of aspirin; Z79.899 Other long term (current) drug therapy
CPT/HCPCS: 36415; 71045; 80053; 83690; 83880; 84484; 85025; 85610; 86850; 86900; 86901; 93005; 96374; 99283; 99285

== ENCOUNTER 2017-10-03 08:00 | Outpatient (CLI) | payer MEDICARE, OTHER ==
[2017-10-03 12:35] LABS: BASOPHILS # (AUTO) 0.1 10^3/uL (0.0-0.1); BASOPHILS % (AUTO) 2.7 %; EOSINOPHILS # (AUTO) 0.1 10^3/uL (0.0-0.7); EOSINOPHILS % (AUTO) 3.7 %; HGB - HEMOGLOBIN 12.1 g/dL (12.0-16.0); LYMPHOCYTES # (AUTO) 0.8 10^3/uL (1.5-3.5); LYMPHOCYTES % (AUTO) 42.7 %; MEAN CORPUSCULAR HEMOGLOBIN 32.4 pg (27.0-31.0); MEAN CORPUSCULAR VOLUME 95.3 fL (81.0-99.0); MEAN PLATELET VOLUME 9.1 fL (7.9-10.8); MONOCYTES # (AUTO) 0.2 10^3/uL (0.0-1.0); MONOCYTES % (AUTO) 9.6 %; NEUTROPHILS # (AUTO) 0.8 10^3/uL (1.5-6.6); NEUTROPHILS % (AUTO) 41.3 %; RED BLOOD COUNT 3.73 10^6/uL (4.20-5.40); RED CELL DISTRIBUTION WIDTH 18.2 % (12.0-15.0)
[2017-10-03 12:42] LABS: ALBUMIN 4.3 g/dL (3.2-5.5); ALBUMIN/GLOBULIN RATIO 1.2 (1.0-2.2); ALKALINE PHOSPHATASE 81 IU/L (42-121); ALT ALANINE AMINOTRANSFERASE < 10 IU/L (10-60); AST ASPARTATE AMINOTRANSFERASE 17 IU/L (10-42); BILIRUBIN,TOTAL 1.2 mg/dL (0.2-1.0); BUN - BLOOD UREA NITROGEN 62 mg/dL (6-20); CALCIUM 9.2 mg/dL (8.5-10.3); CARBON DIOXIDE - CO2 26 mmol/L (21-32); CHLORIDE 97 mmol/L (101-111); CREATININE 1.8 mg/dL (0.4-1.0); GFR - MDRD 26 (>89); GLUCOSE 125 mg/dL (70-100); SODIUM 135 mmol/L (135-145)
[2017-10-03 13:02] LABS: PLT - PLATELET COUNT 27 10^3/uL (130-450); RBC MORPHOLOGY (MULTIPLE) 2+ ANISOCYTOSIS (NORMAL)
== END 2017-10-03 23:59 | disposition home or self-care (01) ==
LOC: LAB.WCP 08:00
PROVIDERS: ATTEND Family Medicine
DX: I50.9 Heart failure, unspecified (principal); D69.6 Thrombocytopenia, unspecified; I48.91 Unspecified atrial fibrillation; D64.9 Anemia, unspecified
CPT/HCPCS: 36415; 80053; 83880; 85025

== ENCOUNTER 2017-10-12 11:35 | Outpatient (CLI) | payer MEDICARE, OTHER | END 2017-10-12 11:36 | disposition critical access hospital (66) | LOC: EMS 11:35 | PROVIDERS: ATTEND Surgery | DX: R53.1 Weakness (principal); R03.0 Elevated blood-pressure reading, without diagnosis of hypertension; R19.7 Diarrhea, unspecified | CPT/HCPCS: A0425; A0427 ==

== ENCOUNTER 2017-10-12 11:51 | Emergency (ER) | payer MEDICARE, OTHER ==
--- NOTE | 2017-10-12 12:48 | ED Physician Documentation ---
PD HPI NVD - Stated complaint Stated Complaint: WEAKNESS - Chief complaint Chief Complaint: Cardiac - History obtained from History obtained from: Patient - History of Present Illness Timing - onset: Today (felt weak and near syncope today. Had not been eating well. EMS found patient's initial BP to be low in 80s systolic. She says she is usually normal BP but not sure what part of normal range as baseline.) Timing - details: Gradual onset, Still present Associated symptoms: Near syncope / syncope. No: Fever, Abdominal pain, Chest pain Contributing factors: Other (chemo last week, not this week.). No: Sick contact , Bad food, Travel, Recent antibiotics Similar symptoms before: Diagnosis (had had fatigue and weakness, lightheaded at times post chemo in the recent past.) Recently seen: Clinic (chemo was held due to low platelet and WBC numbers, but still feeling ill from chemo the wee before. Had been in [facility] admitted for CHF/ rapid atrial fib about 3 weeks ago and had duiretic and betablockers added. She had been doing okay but drinking and eating less this past week.) Review of Systems Constitutional: denies: Fever, Chills Nose: denies: Rhinorrhea / runny nose, Congestion Throat: denies: Sore throat Cardiac: denies: Chest pain / pressure, Palpitations, Pedal edema (not since hospitalization for the CHF), Calf pain Respiratory: denies: Dyspnea, Cough, Wheezing GI: reports: Nausea. denies: Abdominal Pain, Vomiting, Diarrhea, Bloody / black stool : denies: Dysuria, Frequency Skin: denies: Rash, Lesions Neurologic: reports: Generalized weakness, Near syncope. 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 HEENT: Cataracts Derm: Skin cancer surgery - Present Medications Home Medications: Ambulatory Orders Medication Instructions Recorded Confirmed Atorvastatin [Lipitor] 20 mg PO QPM 04/02/16 10/11/17 Cholecalciferol (Vitamin D3) 2,000 unit PO DAILY 04/02/16 10/11/17 [Vitamin D3] Metoprolol Succinate 200 mg PO DAILY 04/02/16 10/11/17 Tolterodine [Detrol LA] 4 mg PO DAILY 04/02/16 10/11/17 Bimatoprost 0.01% Ophth Dops 1 drops RIGHTEYE QPM 08/02/17 10/11/17 [Lumigan 0.01% Ophth Drops] Brimonidine Tartrate/Timolol 1 drops RIGHTEYE BID 08/02/17 10/11/17 [Combigan 0.2%-0.5% Eye Drops] Brinzolamide 1% Ophth Drops [Azopt 1 drops RIGHTEYE BID 08/02/17 10/11/17 1% Ophth Drops] prednisoLONE 1% OPHTH DROPS [Pred 1 drops RIGHTEYE DAILY 08/02/17 10/11/17 Forte 1% Ophth Drops] Aspirin 81 mg PO DAILY 09/06/17 10/11/17 Multivitamin [Theragran] 1 tab PO DAILY 09/15/17 10/11/17 Furosemide [Lasix] 80 mg PO DAILY #30 tablet 09/18/17 10/11/17 Lisinopril [Zestril] 10 mg PO DAILY #30 tablet 09/18/17 10/11/17 Magnesium Oxide [Mag Ox] 400 mg PO BID #60 tablet 09/18/17 10/11/17 Spironolactone [Aldactone] 25 mg PO BID #60 tablet 09/18/17 10/11/17 Lenalidomide [Revlimid] 5 mg PO DAILY 09/28/17 10/11/17 - Allergies Allergies/Adverse Reactions: Allergies Allergy/AdvReac Type Severity Reaction Status Date / Time lidocaine Allergy Unknown Verified 09/20/17 11:48 lisinopril Allergy Rash Verified 09/20/17 11:48 - Social History Does the pt smoke?: No Smoking Status: Never smoker Does the pt drink ETOH?: No Does the pt have substance abuse?: No - Immunizations Immunizations are current?: Yes - POLST Patient has POLST: No POLST Status: DNR PD ED PE NORMAL - Vitals Vital signs reviewed: Yes - General General: Alert and oriented X 3, No acute distress, Well developed/nourished - HEENT HEENT: Pharynx benign - Neck Neck: Supple, no meningeal sign, No adenopathy - Cardiac Cardiac: RRR, No murmur - Respiratory Respiratory: Clear bilaterally - Abdomen Abdomen: Normal bowel sounds, Soft, Non tender, Non distended - Back Back: No CVA TTP - Derm Derm: Normal color, Warm and dry - Extremities Extremities: No deformity, No tenderness to palpate - Neuro Neuro: Alert and oriented X 3, slate splitter 2-12 intact, No motor deficit, No sensory deficit, Normal speech Eye Opening: Spontaneous Motor: Obeys Commands Verbal: Oriented GCS Score: 15 - Psych Psych: Normal mood Results - Vitals Vitals: Vital Signs - 24 hr 10/12/17 10/12/17 10/12/17 11:54 12:01 12:59 Temperature 36.6 C Heart Rate 86 77 Respiratory 18 12 Rate Blood Pressure 142/89 H 97/80 Blood Pressure 99/49 L [Left] O2 Saturation 99 95 Oxygen O2 Source [With Activity] Room air O2 Source Room air - Labs Labs: Laboratory Tests 10/12/17 10/12/17 10/12/17 13:27 13:27 13:27 WBC 2.6 L RBC 2.78 L Hgb 9.0 L Hct 26.5 L MCV 95.4 MCH 32.4 H MCHC 33.9 RDW 17.5 H Plt Count 26 L* MPV 9.7 Neut # Not Reportable Lymph # Not Reportable [place] # Not Reportable Eos # Not Reportable Baso # Not Reportable Absolute Nucleated RBC Not Reportable Total Counted 100 Band Neuts % (Manual) 7 Abnorm Lymph % (Manual) 3 Metamyelocytes % 12 H Nucleated RBC % Not Reportable Neutrophils # (Manual) 1.1 L Lymphocytes # (Manual) 0.9 L Monocytes # (Manual) 0.2 Eosinophils # (Manual) 0.1 Basophils # (Manual) 0.0 Differential Comment MANUAL DIFFERENTIAL Platelet Estimate DECREASED (<130,000) Platelet Morphology NORMAL APPEARANCE RBC Morph Micro Appear 1+ OVALOCYTES Sodium 132 L Potassium 4.4 Chloride 100 L Carbon Dioxide 22 Anion Gap 10.0 BUN 108 H* Creatinine 2.6 H Estimated GFR (MDRD) 17 L Glucose 117 H Calcium 8.5 Magnesium 3.0 H Total Bilirubin 1.1 H AST 15 ALT < 10 L Alkaline Phosphatase 77 B-Natriuretic Peptide 559 H Total Protein 6.6 L Albumin 3.6 Globulin 3.0 Albumin/Globulin Ratio 1.2 Lipase 23 Urine Color Urine Clarity Urine pH Ur Specific [place] Urine Protein Urine Glucose (UA) Urine Ketones Urine Occult Blood Urine Nitrite Urine Bilirubin Urine Urobilinogen Ur Leukocyte Esterase Urine RBC Urine WBC Ur Squamous Epith Cells Urine Bacteria Ur Microscopic Review Urine Culture Comments 10/12/17 13:55 WBC RBC Hgb Hct MCV MCH MCHC RDW Plt Count MPV Neut # Lymph # [place] # Eos # Baso # Absolute Nucleated RBC Total Counted Band Neuts % (Manual) Abnorm Lymph % (Manual) Metamyelocytes % Nucleated RBC % Neutrophils # (Manual) Lymphocytes # (Manual) Monocytes # (Manual) Eosinophils # (Manual) Basophils # (Manual) Differential Comment Platelet Estimate Platelet Morphology RBC Morph Micro Appear Sodium Potassium Chloride Carbon Dioxide Anion Gap BUN Creatinine Estimated GFR (MDRD) Glucose Calcium Magnesium Total Bilirubin AST ALT Alkaline Phosphatase B-Natriuretic Peptide Total Protein Albumin Globulin Albumin/Globulin Ratio Lipase Urine Color YELLOW Urine Clarity HAZY Urine pH 6.0 Ur Specific [place] 1.010 Urine Protein NEGATIVE Urine Glucose (UA) NEGATIVE Urine Ketones NEGATIVE Urine Occult Blood MODERATE H Urine Nitrite NEGATIVE Urine Bilirubin NEGATIVE Urine Urobilinogen 0.2 (NORMAL) Ur Leukocyte Esterase LARGE H Urine RBC 11-25 H Urine WBC >25 H Ur Squamous Epith Cells MANY Squamous H Urine Bacteria Many H Ur Microscopic Review INDICATED Urine Culture Comments NOT INDICATED PD MEDICAL DECISION MAKING - ED course Complexity details: considered differential (she had been on newer meds for CHF/ atrial fib and with her chemo and less oral intake, presume having more pronounced effect and led to hypotension today. Heart rate is 80s and her creatinine is elevated, so I would presume overdiuresed and lower her Lasix and not her betablocker. Her BP improves readily with IV fluids and she is feeling improved. ), d/w patient Departure - Departure Disposition: 01 Home, Self Care Clinical Impression: Near syncope, Transient hypotension, Dehydration Medication side effect Qualifiers: Encounter type: initial encounter Qualified Code(s): T88.7XXA - Unspecified adverse effect of drug or medicament, initial encounter Condition: Stable Record reviewed to determine appropriate education?: Yes Instructions: ED Dehydration, ED Near Syncope Unkn Follow-Up: Cal Frank MD [Primary Care Provider] - Comments: I think your blood pressure and diuretic medicines worked to well combined with your not feeling well and less intake. Your blood pressure drops low and gave you the symptoms he had. Your kidney function is a little elevated as well suggesting under hydration. I would have you encourage frequent fluids regular meeting eating if you can. I would hold your furosemide today and tomorrow and then resume it at a half dose (40 mg). Follow-up with your primary care if not improving over the next 2-3 days. Follow-up with oncology in 2 weeks as planned. Discharge Date/Time: 10/12/17 15:48
[2017-10-12 13:00] VITALS: BP 97/80
[2017-10-12] MEDS ORDERED: SODIUM CHLORIDE 0.9% 500 ML IV ONE (13:20)
[2017-10-12 13:41] LABS: BASOPHILS % (AUTO) 1.6 %; LYMPHOCYTES % (AUTO) 25.6 %; MEAN CORPUSCULAR HEMOGLOBIN 32.4 pg (27.0-31.0); MEAN CORPUSCULAR HGB CONC 33.9 g/dL (32.0-36.0); MEAN CORPUSCULAR VOLUME 95.4 fL (81.0-99.0); MEAN PLATELET VOLUME 9.7 fL (7.9-10.8); MONOCYTES % (AUTO) 16.1 %; NEUTROPHILS % (AUTO) 52.7 %; RED BLOOD COUNT 2.78 10^6/uL (4.20-5.40); RED CELL DISTRIBUTION WIDTH 17.5 % (12.0-15.0); WHITE BLOOD COUNT 2.6 x10^3/uL (4.8-10.8)
[2017-10-12 13:59] LABS: ALBUMIN 3.6 g/dL (3.2-5.5); ALBUMIN/GLOBULIN RATIO 1.2 (1.0-2.2); ALKALINE PHOSPHATASE 77 IU/L (42-121); ALT ALANINE AMINOTRANSFERASE < 10 IU/L (10-60); AST ASPARTATE AMINOTRANSFERASE 15 IU/L (10-42); BILIRUBIN,TOTAL 1.1 mg/dL (0.2-1.0); CALCIUM 8.5 mg/dL (8.5-10.3); CARBON DIOXIDE - CO2 22 mmol/L (21-32); CHLORIDE 100 mmol/L (101-111); CREATININE 2.6 mg/dL (0.4-1.0); GFR - MDRD 17 (>89); GLUCOSE 117 mg/dL (70-100); LIPASE 23 U/L (22-51); SODIUM 132 mmol/L (135-145); TOTAL PROTEIN 6.6 g/dL (6.7-8.2)
[2017-10-12 14:00] LABS: BUN - BLOOD UREA NITROGEN 108 mg/dL (6-20)
[2017-10-12 14:04] LABS: PLT - PLATELET COUNT 26 10^3/uL (130-450)
[2017-10-12 14:09] LABS: BILIRUBIN,URINE NEGATIVE (NEGATIVE); GLUCOSE, URINE (UA) NEGATIVE (NEGATIVE); KETONES,URINE (UA) NEGATIVE (NEGATIVE); LEUKOCYTE ESTERASE, URINE LARGE (NEGATIVE); NITRITE,URINE NEGATIVE (NEGATIVE); OCCULT BLOOD,URINE MODERATE (NEGATIVE); PROTEIN,URINE NEGATIVE (NEGATIVE); UROBILINOGEN,URINE 0.2 (NORMAL) E.U./dL (NORMAL)
[2017-10-12 14:10] LABS: CLARITY,URINE HAZY (CLEAR)
[2017-10-12 14:12] LABS: ABNORMAL LYMPHS % (MANUAL) 3 %; BAND NEUTROPHILS % (MANUAL) 7 %; BASOPHILS % (MANUAL) 1 %; EOSINOPHILS # (MANUAL) 0.1 10^3/uL (0-0.7); LYMPHOCYTES # (MANUAL) 0.9 10^3/uL (1.5-3.5); LYMPHOCYTES % (MANUAL) 32 %; METAMYELOCYTES % (MANUAL) 12 %; MONOCYTES # (MANUAL) 0.2 10^3/uL (0.0-1.0); NEUTROPHILS # (MANUAL) 1.1 10^3/uL (1.5-6.6); NEUTROPHILS % (MANUAL) 37 %
[2017-10-12 14:13] LABS: DIFFERENTIAL COMMENT MANUAL DIFFERENTIAL; PLATELET ESTIMATE, MANUAL DECREASED (<130,000) (NORMAL); PLATELET MORPHOLOGY NORMAL APPEARANCE (NORMAL)
[2017-10-12] MEDS ORDERED: SODIUM CHLORIDE 0.9% 1,000 ML IV ONE (14:39)
[2017-10-12 14:42] LABS: BACTERIA,URINE Many /HPF (None Seen); SQUAMOUS EPITHELIAL CELL,UR MANY Squamous (<= Few)
== END 2017-10-12 15:48 | disposition home or self-care (01) ==
LOC: EDUNIT# → ED 11:51
DX: R55 Syncope and collapse (principal); I95.9 Hypotension, unspecified; E86.0 Dehydration; T88.7XXA Unspecified adverse effect of drug or medicament, initial encounter; I11.0 Hypertensive heart disease with heart failure; E78.00 Pure hypercholesterolemia, unspecified; E11.9 Type 2 diabetes mellitus without complications; R79.89 Other specified abnormal findings of blood chemistry; Z92.21 Personal history of antineoplastic chemotherapy; Z96.649 Presence of unspecified artificial hip joint; Z79.82 Long term (current) use of aspirin
CPT/HCPCS: 36415; 80053; 81001; 81003; 83690; 83735; 83880; 85025; 87086; 96360; 99283; 99284

== ENCOUNTER 2018-02-27 17:51 | Inpatient (IN) | payer MEDICARE, OTHER ==
--- NOTE | 2018-02-27 18:31 | ED Physician Documentation ---
PD HPI LOWER EXT INJURY - Stated complaint Stated Complaint: DVT RULE OUT - Chief complaint Chief Complaint: Ext Problem - History obtained from History obtained from: Patient, Family - History of Present Illness PD HPI LOW EXT INJURY LOCATION: Right (She has been pretty much bedbound since dental surgery recently, she started to develop right leg pain and edema today. She has no history of DVT or PE and denies chest pain or trouble breathing.) Review of Systems Ten Systems: 10 systems reviewed and negative Constitutional: reports: Reviewed and negative Cardiac: reports: Reviewed and negative Respiratory: reports: Reviewed and negative PD PAST MEDICAL HISTORY - Past Medical History Cardiovascular: Congestive heart failure, Hypertension, High cholesterol, Atrial fibrillation, Murmur Respiratory: None Endocrine/Autoimmune: Type 2 diabetes GI: None : Retention, Incontinence, Renal insuffiency, Frequency, Other HEENT: Glaucoma Psych: None Musculoskeletal: Osteoarthritis, Fatigue, Chronic back pain Derm: Herpes zoster - Past Surgical History Past Surgical History: Yes General: Appendectomy 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 HEENT: Cataracts Derm: Skin cancer surgery - Present Medications Home Medications: Ambulatory Orders Medication Instructions Recorded Confirmed Atorvastatin [Lipitor] 20 mg PO QPM 04/02/16 02/27/18 Cholecalciferol (Vitamin D3) 2,000 unit PO DAILY 04/02/16 02/27/18 [Vitamin D3] Metoprolol Succinate 50 mg PO DAILY 04/02/16 02/27/18 Tolterodine [Detrol LA] 4 mg PO DAILY 04/02/16 02/27/18 Bimatoprost 0.01% Ophth Dops 1 drops RIGHTEYE QPM 08/02/17 02/27/18 [Lumigan 0.01% Ophth Drops] prednisoLONE 1% OPHTH DROPS [Pred 1 drops RIGHTEYE DAILY 08/02/17 02/27/18 Forte 1% Ophth Drops] Multivitamin [Theragran] 1 tab PO DAILY 09/15/17 02/27/18 Lisinopril [Zestril] 10 mg PO DAILY #30 tablet 09/18/17 02/27/18 Spironolactone [Aldactone] 25 mg PO BID #60 tablet 09/18/17 02/27/18 Amoxicillin 500 mg PO TID 02/27/18 02/27/18 Hydrocodone/Acetaminophen [Vicodin 1 tab PO Q4HR PRN 02/27/18 02/27/18 5-300 mg Tablet] - Allergies Allergies/Adverse Reactions: Allergies Allergy/AdvReac Type Severity Reaction Status Date / Time lidocaine Allergy Unknown Verified 02/27/18 20:20 lisinopril Allergy Rash Verified 02/27/18 20:20 - Social History Does the pt smoke?: No Smoking Status: Never smoker Does the pt drink ETOH?: No Does the pt have substance abuse?: No - Immunizations Immunizations are current?: Yes - POLST Patient has POLST: No POLST Status: DNR PD ED PE NORMAL - Vitals Vital signs reviewed: Yes - General General: Alert and oriented X 3, No acute distress - HEENT HEENT: PERRL, EOMI - Neck Neck: Supple, no meningeal sign, No bony TTP - Cardiac Cardiac: RRR (with freq enxtrasystoles), No murmur - Respiratory Respiratory: No respiratory distress, Clear bilaterally - Back Back: No CVA TTP, No spinal TTP - Derm Derm: Normal color, Warm and dry - Extremities Extremities: Other (Modest edema of the right leg with slight tenderness, no discoloration.) - Neuro Neuro: Alert and oriented X 3, Normal speech - Psych Psych: Normal mood, Normal affect Results - Vitals Vitals: Vital Signs - 24 hr 02/27/18 02/27/18 02/27/18 17:54 19:20 20:14 Temperature 36.9 C 37.2 C 36.8 C Heart Rate 73 98 107 H Respiratory 20 17 19 Rate Blood Pressure 133/66 H 118/78 137/75 H O2 Saturation 97 96 96 Oxygen O2 Source [] Room air O2 Source Room air - EKG (time done) 1915 Rate: Rate (enter#) (112) Rhythm: Atrial flutter, Atrial fibrillation Intervals: RBBB QRS: LVH Ischemia: Non specific changes Computer interpretation: Agree with computer - Labs Labs: Laboratory Tests 02/27/18 02/27/18 02/27/18 18:25 18:25 18:25 WBC 0.7 L* RBC 2.95 L Hgb 8.7 L Hct 25.6 L MCV 87.0 MCH 29.4 MCHC 33.8 RDW 17.4 H Plt Count 12 L* MPV 10.0 Neut # (Auto) CARDIOVASCULAR LAB DIRECTOR Lymph # (Auto) CARDIOVASCULAR LAB DIRECTOR [place] # (Auto) CARDIOVASCULAR LAB DIRECTOR Eos # (Auto) CARDIOVASCULAR LAB DIRECTOR Baso # (Auto) CARDIOVASCULAR LAB DIRECTOR Absolute Nucleated RBC CARDIOVASCULAR LAB DIRECTOR Total Counted 50 Band Neuts % (Manual) 4 Reactive Lymphs % (Man) 6 Abnorm Lymph % (Manual) 0 Myelocytes % 4 H Nucleated RBC % CARDIOVASCULAR LAB DIRECTOR Neutrophils # (Manual) 0.2 L* Lymphocytes # (Manual) 0.4 L Monocytes # (Manual) 0.1 Eosinophils # (Manual) 0.0 Basophils # (Manual) 0.0 Nucleated RBCs 3 Manual Slide Review Indicated Platelet Estimate DECREASED (<130,000) Platelet Morphology NORMAL APPEARANCE RBC Morph Micro Appear 1+ TEARDROP CELLS PT 16.1 H INR 1.4 H Sodium 132 L Potassium 6.3 H* Chloride 102 Carbon Dioxide 21 Anion Gap 9.0 BUN 60 H Creatinine 1.3 H Estimated GFR (MDRD) 39 L Glucose 132 H Calcium 9.1 Troponin I 02/27/18 18:25 WBC RBC Hgb Hct MCV MCH MCHC RDW Plt Count MPV Neut # (Auto) Lymph # (Auto) [place] # (Auto) Eos # (Auto) Baso # (Auto) Absolute Nucleated RBC Total Counted Band Neuts % (Manual) Reactive Lymphs % (Man) Abnorm Lymph % (Manual) Myelocytes % Nucleated RBC % Neutrophils # (Manual) Lymphocytes # (Manual) Monocytes # (Manual) Eosinophils # (Manual) Basophils # (Manual) Nucleated RBCs Manual Slide Review Platelet Estimate Platelet Morphology RBC Morph Micro Appear PT INR Sodium Potassium Chloride Carbon Dioxide Anion Gap BUN Creatinine Estimated GFR (MDRD) Glucose Calcium Troponin I < 0.04 - Rads (name of study) 2v chest Radiology: EMP read contemporaneously (mod chf) PD MEDICAL DECISION MAKING - ED course ED course: 87-year-old woman with recent dental surgery causing her to be bedbound and poor oral intake now with right leg pain today. He were concerned about DVT which was negative on ultrasound. Her blood counts are consistent with her myelodysplastic syndrome and that is a chronic issue but her BUN is way up as is her potassium necessitating stay for IV fluids Especially since the hydration will need to be gentle given her comorbidities. Spoke with Dr. Delatorre for admission at 7:43 PM. - Sepsis Event Vital Signs: Vital Signs - 24 hr 02/27/18 02/27/18 02/27/18 17:54 19:20 20:14 Temperature 36.9 C 37.2 C 36.8 C Heart Rate 73 98 107 H Respiratory 20 17 19 Rate Blood Pressure 133/66 H 118/78 137/75 H O2 Saturation 97 96 96 Oxygen O2 Source [] Room air O2 Source Room air Departure - Departure Disposition: 66 [facility] DC/Xfer Clinical Impression: Elevated serum creatinine, Hyperkalemia Condition: Serious
[2018-02-27 18:34] LABS: HGB - HEMOGLOBIN 8.7 g/dL (12.0-16.0); MEAN CORPUSCULAR HEMOGLOBIN 29.4 pg (27.0-31.0)
[2018-02-27 18:40] LABS: INR 1.4 (0.8-1.2); PT - PROTHROMBIN TIME 16.1 secs (9.9-12.6)
[2018-02-27 18:43] LABS: BASOPHILS % (AUTO) 4.8 %; EOSINOPHILS % (AUTO) 0.5 %; LYMPHOCYTES % (AUTO) 47.4 %; MEAN CORPUSCULAR HGB CONC 33.8 g/dL (32.0-36.0); MONOCYTES % (AUTO) 25.1 %; NEUTROPHILS % (AUTO) 22.2 %; RED BLOOD COUNT 2.95 10^6/uL (4.20-5.40); RED CELL DISTRIBUTION WIDTH 17.4 % (12.0-15.0)
[2018-02-27 18:48] LABS: WHITE BLOOD COUNT 0.7 x10^3/uL (4.8-10.8)
[2018-02-27 18:49] LABS: PLT - PLATELET COUNT 12 10^3/uL (130-450)
[2018-02-27 18:51] LABS: CALCIUM 9.1 mg/dL (8.5-10.3); CREATININE 1.3 mg/dL (0.4-1.0)
[2018-02-27 18:58] LABS: ABNORMAL LYMPHS % (MANUAL) 0 %
[2018-02-27 19:34] LABS: BAND NEUTROPHILS % (MANUAL) 4 %; LYMPHOCYTES # (MANUAL) 0.4 10^3/uL (1.5-3.5); LYMPHOCYTES % (MANUAL) 44 %; MONOCYTES # (MANUAL) 0.1 10^3/uL (0.0-1.0); MYELOCYTES % (MANUAL) 4 %; NEUTROPHILS # (MANUAL) 0.2 10^3/uL (1.5-6.6); NEUTROPHILS % (MANUAL) 22 %
[2018-02-27 19:37] LABS: PLATELET ESTIMATE, MANUAL DECREASED (<130,000) (NORMAL); PLATELET MORPHOLOGY NORMAL APPEARANCE (NORMAL)
[2018-02-27] MEDS ORDERED: SODIUM CHLORIDE 0.9% 1,000 ML IV ONE (19:40)
--- NOTE | 2018-02-27 19:47 | Ultrasound Report ---
Procedure Date: 02/27/2018 Accession Number: [id number] / [id number] Procedure: US - Duplex Ext Veins Right CPT Code: FULL RESULT: EXAM: RIGHT LOWER EXTREMITY VENOUS ULTRASOUND EXAM DATE: 02/27/2018 07:10 PM. CLINICAL HISTORY: Right lower extremity pain. COMPARISON: None. TECHNIQUE: Real-time sonographic vascular imaging was performed by the client care manager through the lower extremity utilizing both color-flow and Doppler spectral analysis. Multiple sales representative church furniture static images were saved for review. FINDINGS: Common Femoral Vein (CFV): Normal. CFV-GSV Junction: Normal. Profunda Femoral Vein (PFV): Normal. Femoral Vein (FV) Prox: Normal. Femoral Vein (FV) Mid: Normal. Femoral Vein (FV) Dist: Normal. Popliteal Vein: Normal. Posterior Tibial Veins: Normal. Peroneal Veins: Limited visualization. Contralateral Side CFV: Normal. IMPRESSION: No evidence for deep venous thrombosis. RADIA
--- NOTE | 2018-02-27 20:21 | XRAY Report ---
Procedure Date: 02/27/2018 Accession Number: [id number] / [id number] Procedure: XR - Chest 2 View X-Ray CPT Code: 86646 FULL RESULT: EXAM: CHEST RADIOGRAPHY EXAM DATE: 02/27/2018 08:12 PM. CLINICAL HISTORY: Congestive heart failure. COMPARISON: 09/20/2017. TECHNIQUE: 2 views. FINDINGS: Lungs/Pleura: There is moderate pulmonary vascular congestion and edema is seen. A mild left-sided pleural effusion is suggested. Right lung is clear. There is no pneumothorax. Mediastinum: Cardiac silhouette is enlarged but similar to prior study. Other: Extensive spinal fusion hardware is seen in the mid thoracic spine. IMPRESSION: Moderate CHF/fluid overload and mild left pleural effusion. RADIA
[2018-02-27] MEDS ORDERED: oxyCODONE 5 MG TABLET PO STA (21:29)
[2018-02-27] MEDS ORDERED: ONDANSETRON 4 MG/2 ML VIAL IVP PRN (21:40)
[2018-02-27] MEDS ORDERED: HYDROcod/ACETAM 5/325 MG TABLET PO PRN (21:47)
[2018-02-27] MEDS ORDERED: SODIUM POLYSTYRENE SULFONATE 15 GM/60 ML BOTTLE PO STA (21:50)
[2018-02-27] MEDS ORDERED: HYDROmorphone 2 MG/ML VIAL IVP PRN (21:50)
[2018-02-27 22:18] LABS: ALBUMIN 3.1 g/dL (3.2-5.5); ALKALINE PHOSPHATASE 52 IU/L (42-121); ALT ALANINE AMINOTRANSFERASE < 10 IU/L (10-60); AST ASPARTATE AMINOTRANSFERASE 12 IU/L (10-42); BILIRUBIN,TOTAL 1.3 mg/dL (0.2-1.0); TOTAL PROTEIN 6.5 g/dL (6.7-8.2)
[2018-02-27 22:34] LABS: HB2 TOTAL 9.3 g/dL; HEMOGLOBIN A1C 0.4 g/dL; HEMOGLOBIN A1C % 6.1 % (4.6-6.2)
[2018-02-27] MEDS: DEXTROSE 5%-0.9% NACL 1,000 ML IV SCH (22:39)
[2018-02-27] MEDS: SODIUM CHLORIDE FLUSH 0.9% 10 ML SYRINGE IVP PRN (22:39)
[2018-02-27] MEDS ORDERED: BIMATOPROST 0.01% OPHTH DROPS 2.5 ML ONE (22:44)
[2018-02-27] MEDS: AMOXICILLIN 250 MG CAPSULE PO SCH (23:04)
[2018-02-28] MEDS: SODIUM CHLORIDE FLUSH 0.9% 10 ML SYRINGE IVP SCH ×4 (01:07→23:11)
[2018-02-28] MEDS: oxyCOD/ACETAMIN 5 MG/325 MG TABLET PO PRN ×5 (01:12→21:35)
--- NOTE | 2018-02-28 04:46 | HISTORY & PHYSICAL EXAMINATION ---
DATE OF SERVICE: 02/27/2018 Physician: Angela Delatorre MD HISTORY OF PRESENT ILLNESS: This is an 87-year-old, white female who has a history of hypertension, diabetes with only diet control, glaucoma on eyedrops, myelodysplastic syndrome, who lives alone, but has a daytime very devoted caregiver and is independent at night. She is very sharp, does crossword puzzles briskly and is able to take care of herself usually every entire day Tuesday on her own. The patient developed pain in the upper and lower jaws, and was advised to go to a dentist, but did not want to. The following day, she did see the dentist and was told that she had abscesses both in the upper and lower mandible, required tooth extractions and debridement 1 week ago, and was started on Amoxicillin and pain medications. Her diet needed to be adjusted to the consistency of yogurt, and she was drinking some liquids. Her pain was only controlled with Percocet, not oxycodone. This morning, she awoke with worse pain, as well as a new right calf tenderness and mild swelling in the right lower leg. She was seen in the emergency room. The patient was found to have acute kidney injury and a potassium of 6.3, and is being admitted for this. The caregiver checked her blood pressure daily during the 1 week of decreased p.o. intake and there has been no dosing of her Zestril, beta mohit and spironolactone. There has been no fever. The patient has been in such pain that she cries in her sleep, according to the caregiver. PAST MEDICAL HISTORY: Hypertension, myelodysplastic syndrome with low white count, anemia and low platelet count, for which she is on IV infusions of Proc[place] through [place] [facility], history of diastolic heart failure, chronic atrial fibrillation, diabetes on diet control, and has 1 kidney congenitally. ALLERGIES 1. LIDOCAINE. 2. LISINOPRIL, but Trade brand Zestril is fine. MEDICATIONS 1. Prednisolone eyedrops. 2. Detrol LA 4 mg daily. 3. Aldactone 25 mg b.i.d., which she has not received for a week. 4. Multivitamin daily. 5. Metoprolol succinate 50 mg daily, which she has not received for a week. 6. Zestril trade name 10 mg daily, which she has not received for a week. 7. Vicodin p.r.n. 8. Percocet p.r.n. 9. Vitamin D3 daily 2000 units. 10. Lumigan eyedrops. 11. Lipitor 20 mg at night. 12. Amoxicillin 500 mg t.i.d. 13. Procrit 40,000 U once a week on Tuesdays. FAMILY HISTORY: No inherited diseases. SOCIAL HISTORY: Patient is homebound, uses a walker. She has never smoked, drinks no alcohol, uses no illicit drugs. 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 REVIEW OF SYSTEMS: A comprehensive review of systems was performed and the pertinent positives are in the HPI, the rest are negative. PHYSICAL EXAMINATION GENERAL: Elderly, white female. She has mild head tremor at rest. She is alert and awake and oriented x3. VITAL SIGNS: Blood pressure 137/75, pulse of 107-129 in atrial fibrillation, afebrile, room air saturation 98%. HEENT: Shows no swelling of the jaw. No tenderness to light touch externally. Moist oral mucosa. NECK: Without JVD in a vertical position. No carotid bruits. CHEST: Clear. HEART: Sounds normal. No murmur. ABDOMEN: Soft with positive bowel sounds. EXTREMITIES: There is trace right ankle edema. There is mild tenderness to the right lateral mid calf with no cord, redness or swelling in that area. There is no tenderness or swelling behind the knee of the right side. The left leg is normal. NEUROLOGIC: Intact. LABORATORIES: Sodium 132, potassium 6.3, BUN 60, creatinine 1.3, A1c 6.1, bilirubin 1.3. Normal liver tests. Troponin not detectable. INR 1.4. White blood count 0.7, hemoglobin 8.7, platelet count 12. (Marquis is her baseline CBC. She got a transfusion of blood several days ago when the hemoglobin was 6.5.) EKG: Atrial fibrillation, right bundle branch block, no ST or T wave changes. Chest x-ray: No active pulmonary disease, mild cardiomegaly and mild left pleural effusion with mild CHF. Venous duplex Doppler of the right leg: No DVT. IMPRESSION/DIAGNOSES 1. Hyperkalemia. 2. Atrial fibrillation with rapid ventricular response (likely due to no beta mohit use for 7 days and from dehydration). 3. Acute kidney injury. 4. Dehydration due to poor p.o. intake. 5. Dental pain secondary to dental work, tooth extractions and abscess. 6. History of hypertension. 7. Pulmonary hypertension history. 8. Myelodysplastic syndrome. 9. Diabetes, on diet control. 10. Right calf pain with no DVT. PLAN: Admit the patient. Place on telemetry to watch for arrhythmias during hyperkalemia. Start Kayexalate and follow her potassiums every 6-12 hours. Hold the lisinopril and spironolactone, both for the BLADIMIR and for the hyperkalemia problem. Restart the beta mohit, but at a lower dose with holding parameters. Begin IV fluids and continue with her Percocet pain medicine, antibiotics for her dental abscesses and her eyedrops for glaucoma. A diabetic diet with pureed texture will be started, and fingerstick glucoses and sliding scale insulin in case there are high sugars. CODE STATUS: DNR. DEEP VENOUS THROMBOSIS PROPHYLAXIS: Foot pumps. ATTESTATION: The patient is expected to be discharged or transferred to another facility within 96 hours: Yes. TD: 02/27/2018 23:53 NAVEEN
[2018-02-28] MEDS: DEXTROSE 5%-0.9% NACL 1,000 ML IV SCH ×3 (05:42→13:43)
[2018-02-28 06:25] LABS: BASOPHILS % (AUTO) 0.9 %; EOSINOPHILS % (AUTO) 0.2 %; HGB - HEMOGLOBIN 7.5 g/dL (12.0-16.0); LYMPHOCYTES % (AUTO) 52.3 %; MEAN CORPUSCULAR HEMOGLOBIN 28.9 pg (27.0-31.0); MEAN CORPUSCULAR HGB CONC 32.9 g/dL (32.0-36.0); MEAN PLATELET VOLUME 10.4 fL (7.9-10.8); MONOCYTES % (AUTO) 24.7 %; NEUTROPHILS % (AUTO) 21.9 %; RED BLOOD COUNT 2.59 10^6/uL (4.20-5.40)
[2018-02-28] MEDS: AMOXICILLIN 250 MG CAPSULE PO SCH ×3 (06:34→21:28)
[2018-02-28] MEDS: SODIUM CHLORIDE FLUSH 0.9% 10 ML SYRINGE IVP PRN ×2 (06:34→21:27)
[2018-02-28] MEDS: PANTOPRAZOLE 40 MG VIAL IVP SCH (06:34)
[2018-02-28 06:35] LABS: CALCIUM 8.4 mg/dL (8.5-10.3)
[2018-02-28 07:09] LABS: WHITE BLOOD COUNT 0.7 x10^3/uL (4.8-10.8)
[2018-02-28 07:10] LABS: ABNORMAL LYMPHS % (MANUAL) 0 %; PLT - PLATELET COUNT 10 10^3/uL (130-450)
[2018-02-28 07:11] LABS: BAND NEUTROPHILS % (MANUAL) 4 %; LYMPHOCYTES # (MANUAL) 0.6 10^3/uL (1.5-3.5); LYMPHOCYTES % (MANUAL) 64 %; METAMYELOCYTES % (MANUAL) 4 %; NEUTROPHILS # (MANUAL) 0.1 10^3/uL (1.5-6.6); NEUTROPHILS % (MANUAL) 8 %
[2018-02-28 07:12] LABS: DIFFERENTIAL COMMENT MANUAL DIFFERENTIAL; PLATELET ESTIMATE, MANUAL DECREASED (<130,000) (NORMAL); PLATELET MORPHOLOGY NORMAL APPEARANCE (NORMAL)
[2018-02-28 07:28] LABS: BILIRUBIN,URINE NEGATIVE (NEGATIVE); GLUCOSE, URINE (UA) NEGATIVE (NEGATIVE); KETONES,URINE (UA) NEGATIVE (NEGATIVE); LEUKOCYTE ESTERASE, URINE NEGATIVE (NEGATIVE); NITRITE,URINE NEGATIVE (NEGATIVE); OCCULT BLOOD,URINE NEGATIVE (NEGATIVE); PH,URINE 5.5 PH (5.0-7.5); PROTEIN,URINE NEGATIVE (NEGATIVE); UROBILINOGEN,URINE 0.2 (NORMAL) E.U./dL (NORMAL)
[2018-02-28 07:31] LABS: CLARITY,URINE CLEAR (CLEAR)
[2018-02-28] MEDS ORDERED: METOPROLOL SUCCINATE 50 MG PO SCH (09:00)
[2018-02-28] MEDS ORDERED: METOPROLOL SUCCINATE 50 MG TABLET PO SCH (09:00)
[2018-02-28] MEDS: INSULIN ASPART 300 UNIT/3 ML PEN SUBQ SCH ×5 (09:14→21:27)
[2018-02-28] MEDS: prednisoLONE 1% OPHTH DROPS 75 DROPS/5 ML BOTTLE RIGHTEYE SCH (09:15)
[2018-02-28] MEDS: POLYETHYLENE GLYCOL 3350 17 GM PACKET PO SCH (09:15)
[2018-02-28] MEDS: MULTIVITAMIN TABLET PO SCH (09:16)
[2018-02-28] MEDS: TOLTERODINE LA 2 MG CAPSULE PO SCH (09:16)
[2018-02-28] MEDS: METOPROLOL SUCCINATE 50 MG TABLET PO SCH (09:16)
--- NOTE | 2018-02-28 19:02 | PROVIDER PROGRESS NOTE ---
Subjective - Prog Note Date Prog Note Date: 03/01/18 - Subjective Pt reports feeling: Improved Subjective: pt feel better but still complain of right calf pain. pt denies chest pain, fever,chill, SOB. pt state Dr. Leilani Alas, her oncologist will visit her this afternoon in the hospital Current Medications - Current Medications Current Medications: Active Medications Acetaminophen (Tylenol) 650 mg PO Q4HR PRN PRN Reason: Pain or Fever > 38C (100.4F) Amoxicillin (Amoxil) 500 mg PO TID [facility] Last Admin: 03/01/18 14:33 Dose: 500 mg Atorvastatin Calcium (Lipitor) 20 mg PO QPM [facility] Last Admin: 02/28/18 21:27 Dose: 20 mg Hydromorphone HCl (Dilaudid (Vial)) 2 mg IVP Q6H PRN PRN Reason: Severe Pain Sodium Chloride (Normal Saline 0.9%) 1,000 mls @ 100 mls/hr IV .Q10H [facility] Last Admin: 03/01/18 09:01 Dose: 100 mls/hr Insulin Aspart (Novolog) 1 - 5 unit SUBQ 0800,1200,1700,2100 [facility] PRN Reason: Protocol Last Admin: 03/01/18 17:18 Dose: Not Given Latanoprost (Xalatan Ophth Drops) 1 drops RIGHTEYE QPM [facility] Last Admin: 02/28/18 21:37 Dose: 1 drops Metoprolol Succinate (Toprol Xl) 50 mg PO DAILY [facility] Multivitamins (Theragran) 1 tab PO DAILY [facility] Last Admin: 03/01/18 09:02 Dose: 1 tab Ondansetron HCl (Zofran Inj) 4 mg IVP Q6HR PRN PRN Reason: Nausea / Vomiting Oxycodone HCl (Roxicodone) 1 mg PO Q4HR PRN PRN Reason: PAIN Pantoprazole Sodium (Protonix) 40 mg IVP QDAC [facility] Last Admin: 03/01/18 06:46 Dose: 40 mg Polyethylene Glycol (Miralax) 17 gm PO DAILY [facility] Last Admin: 03/01/18 09:03 Dose: Not Given Prednisolone (Pred Forte 1% Ophth Drops) 1 drops RIGHTEYE DAILY [facility] Last Admin: 03/01/18 09:03 Dose: 1 drops Sodium Chloride (Normal Saline Flush 0.9%) 10 ml IVP PRN PRN PRN Reason: NEEDED PER PROVIDER ORDERS Last Admin: 03/01/18 06:47 Dose: 10 ml Sodium Chloride (Normal Saline Flush 0.9%) 10 ml IVP 0100,0900,1700 [facility] Last Admin: 03/01/18 17:18 Dose: Not Given Tolterodine Tartrate (Detrol La) 4 mg PO DAILY [facility] Last Admin: 03/01/18 09:01 Dose: 4 mg Cholecalciferol (Vitamin D3) [Vitamin D3] 2,000 unit PO DAILY 04/02/16 Bimatoprost 0.01% Ophth Dops [Lumigan 0.01% Ophth Drops] 1 drops RIGHTEYE QPM prednisoLONE 1% OPHTH DROPS [Pred Forte 1% Ophth Drops] 1 drops RIGHTEYE DAILY 08/02/17 Multivitamin [Theragran] 1 tab PO DAILY 09/15/17 Amoxicillin 500 mg PO TID 02/27/18 Hydrocodone/Acetaminophen [Vicodin 5-300 mg Tablet] 1 tab PO Q4HR PRN 02/27/18 Atorvastatin Calcium 20 mg PO QPM 02/28/18 Metoprolol Succinate [Toprol Xl] 50 mg PO DAILY 02/28/18 Spironolactone [Spironolactone] 50 mg PO DAILY 02/28/18 Tolterodine Tartrate [Tolterodine Tartrate ER] 4 mg PO DAILY 02/28/18 Objective - Vital Signs/Intake & Output Reviewed Vital Signs: Yes Vital Signs: Vital Signs x48h Temp Pulse Pulse Resp BP BP Pulse Ox 02/28/18 15:50 36.5 C 93 16 109/45 L 97 02/28/18 11:55 80 120/53 L Intake & Output: Intake & Output 02/25/18 02/26/18 02/27/18 02/28/18 23:59 23:59 23:59 23:59 Intake Total 3200 Output Total 150 200 Balance -150 3000 - Objective General Appearance: positive: No acute distress, Alert. negative: Lethargic Eyes Bilateral: positive: Normal inspection, PERRL, No lid inflammation, Conjunctivae nml ENT: positive: ENT inspection nml, Pharynx nml, No signs of dehydration. negative: Purulent nasal drainage, Pharyngeal erythema, Oral lesions Neck: positive: Nml inspection, Thyroid nml, No JVD, Trachea midline. negative : Thyromegaly, Lymphadenopathy (R), Lymphadenopathy (L), Stiff neck, Swelling/ bruising, Tracheal deviation Respiratory: positive: Chest non-tender, No respiratory distress, Breath sounds nml. negative: Wheezes, Rales, Rhonchi Cardiovascular: positive: Regular rate & rhythm, No murmur, No gallop. negative : Irregularly irregular, Extrasystoles, Tachycardia, Bradycardia, JVD present, Systolic murmur, Diastolic murmur Peripheral Pulses: 2+ Radial (R), 2+ Radial (L), 2+ Dorsalis pedis (R), 2+ Dorsalis pedis (L) Abdomen: positive: Non-tender, No organomegaly, Nml bowel sounds, No distention. negative: Tenderness, Guarding, Rebound Back: positive: Nml inspection. negative: CVA tenderness (R), CVA tenderness (L ) Skin: positive: Color nml, No rash, Warm, Dry. negative: Cyanosis, Diaphoresis , Pallor Extremities: positive: Non-tender, Full ROM, Nml appearance. negative: Calf tenderness, Joint swelling, Ledy's sign/cords Neurologic/Psychiatric: positive: Oriented x3, Sensation nml, Mood/affect nml, Weakness, Facial droop, Slurred/abnml speech - Lab Results Fish Bones: 03/01/18 04:15 03/01/18 04:15 Other Labs: Lab Results x24hrs 02/28/18 02/28/18 02/28/18 Range/Units 16:46 11:54 08:41 WBC (4.8-10.8) x10^3/uL RBC (4.20-5.40) 10^6/uL Hgb (12.0-16.0) g/dL Hct (37.0-47.0) % MCV (81.0-99.0) fL MCH (27.0-31.0) pg MCHC (32.0-36.0) g/dL RDW (12.0-15.0) % Plt Count (130-450) 10^3/uL MPV (7.9-10.8) fL Neut # (Auto) Lymph # (Auto) [place] # (Auto) Eos # (Auto) Baso # (Auto) Absolute Nucleated RBC Total Counted Band Neuts % (Manual) (0 - 10) % Reactive Lymphs % (Man) % Abnorm Lymph % (Manual) % Metamyelocytes % ( - 0) % Nucleated RBC % Neutrophils # (Manual) (1.5-6.6) 10^3/uL Lymphocytes # (Manual) (1.5-3.5) 10^3/uL Monocytes # (Manual) (0.0-1.0) 10^3/uL Eosinophils # (Manual) (0-0.7) 10^3/uL Basophils # (Manual) (0-0.1) 10^3/uL Nucleated RBCs % Differential Comment Platelet Estimate (NORMAL) Platelet Morphology (NORMAL) RBC Morph Micro Appear (NORMAL) Sodium (135-145) mmol/L Potassium (3.5-5.0) mmol/L Chloride (101-111) mmol/L Carbon Dioxide (21-32) mmol/L Anion Gap (6-13) BUN (6-20) mg/dL Creatinine (0.4-1.0) mg/dL Estimated GFR (MDRD) (>89) Glucose (70-100) mg/dL POC Whole Bld Glucose 146 H 174 H 142 H (70 - 100) mg/dL Calcium (8.5-10.3) mg/dL Troponin I (<0.49) ng/mL Urine Color Urine Clarity (CLEAR) Urine pH (5.0-7.5) PH Ur Specific [place] (1.002-1.030) Urine Protein (NEGATIVE) mg/dL Urine Glucose (UA) (NEGATIVE) mg/dL Urine Ketones (NEGATIVE) mg/dL Urine Occult Blood (NEGATIVE) Urine Nitrite (NEGATIVE) Urine Bilirubin (NEGATIVE) Urine Urobilinogen (NORMAL) E.U./dL Ur Leukocyte Esterase (NEGATIVE) Ur Microscopic Review Urine Culture Comments 02/28/18 02/28/18 02/28/18 Range/Units 06:12 06:12 06:12 WBC 0.7 L* (4.8-10.8) x10^3/uL RBC 2.59 L (4.20-5.40) 10^6/uL Hgb 7.5 L (12.0-16.0) g/dL Hct 22.8 L (37.0-47.0) % MCV 88.0 (81.0-99.0) fL MCH 28.9 (27.0-31.0) pg MCHC 32.9 (32.0-36.0) g/dL RDW 17.0 H (12.0-15.0) % Plt Count 10 L* (130-450) 10^3/uL MPV 10.4 (7.9-10.8) fL Neut # (Auto) Not Reportable Lymph # (Auto) Not Reportable [place] # (Auto) Not Reportable Eos # (Auto) Not Reportable Baso # (Auto) Not Reportable Absolute Nucleated RBC Not Reportable Total Counted 25 Band Neuts % (Manual) 4 (0 - 10) % Reactive Lymphs % (Man) 16 % Abnorm Lymph % (Manual) 0 % Metamyelocytes % 4 H ( - 0) % Nucleated RBC % Not Reportable Neutrophils # (Manual) 0.1 L* (1.5-6.6) 10^3/uL Lymphocytes # (Manual) 0.6 L (1.5-3.5) 10^3/uL Monocytes # (Manual) 0.0 (0.0-1.0) 10^3/uL Eosinophils # (Manual) 0.0 (0-0.7) 10^3/uL Basophils # (Manual) 0.0 (0-0.1) 10^3/uL Nucleated RBCs 2 % Differential Comment MANUAL DIFFERENTIAL Platelet Estimate DECREASED (<130,000) (NORMAL) Platelet Morphology NORMAL APPEARANCE (NORMAL) RBC Morph Micro Appear 1+ ANISOCYTOSIS (NORMAL) Sodium 136 (135-145) mmol/L Potassium 5.2 H (3.5-5.0) mmol/L Chloride 108 (101-111) mmol/L Carbon Dioxide 21 (21-32) mmol/L Anion Gap 7.0 (6-13) BUN 51 H (6-20) mg/dL Creatinine 1.0 (0.4-1.0) mg/dL Estimated GFR (MDRD) 52 L (>89) Glucose 155 H (70-100) mg/dL POC Whole Bld Glucose (70 - 100) mg/dL Calcium 8.4 L (8.5-10.3) mg/dL Troponin I < 0.04 (<0.49) ng/mL Urine Color Urine Clarity (CLEAR) Urine pH (5.0-7.5) PH Ur Specific [place] (1.002-1.030) Urine Protein (NEGATIVE) mg/dL Urine Glucose (UA) (NEGATIVE) mg/dL Urine Ketones (NEGATIVE) mg/dL Urine Occult Blood (NEGATIVE) Urine Nitrite (NEGATIVE) Urine Bilirubin (NEGATIVE) Urine Urobilinogen (NORMAL) E.U./dL Ur Leukocyte Esterase (NEGATIVE) Ur Microscopic Review Urine Culture Comments 02/28/18 02/27/18 02/27/18 Range/Units 05:38 23:12 23:12 WBC (4.8-10.8) x10^3/uL RBC (4.20-5.40) 10^6/uL Hgb (12.0-16.0) g/dL Hct (37.0-47.0) % MCV (81.0-99.0) fL MCH (27.0-31.0) pg MCHC (32.0-36.0) g/dL RDW (12.0-15.0) % Plt Count (130-450) 10^3/uL MPV (7.9-10.8) fL Neut # (Auto) Lymph # (Auto) [place] # (Auto) Eos # (Auto) Baso # (Auto) Absolute Nucleated RBC Total Counted Band Neuts % (Manual) (0 - 10) % Reactive Lymphs % (Man) % Abnorm Lymph % (Manual) % Metamyelocytes % ( - 0) % Nucleated RBC % Neutrophils # (Manual) (1.5-6.6) 10^3/uL Lymphocytes # (Manual) (1.5-3.5) 10^3/uL Monocytes # (Manual) (0.0-1.0) 10^3/uL Eosinophils # (Manual) (0-0.7) 10^3/uL Basophils # (Manual) (0-0.1) 10^3/uL Nucleated RBCs % Differential Comment Platelet Estimate (NORMAL) Platelet Morphology (NORMAL) RBC Morph Micro Appear (NORMAL) Sodium (135-145) mmol/L Potassium 5.5 H (3.5-5.0) mmol/L Chloride (101-111) mmol/L Carbon Dioxide (21-32) mmol/L Anion Gap (6-13) BUN (6-20) mg/dL Creatinine (0.4-1.0) mg/dL Estimated GFR (MDRD) (>89) Glucose (70-100) mg/dL POC Whole Bld Glucose (70 - 100) mg/dL Calcium (8.5-10.3) mg/dL Troponin I < 0.04 (<0.49) ng/mL Urine Color YELLOW Urine Clarity CLEAR (CLEAR) Urine pH 5.5 (5.0-7.5) PH Ur Specific [place] 1.015 (1.002-1.030) Urine Protein NEGATIVE (NEGATIVE) mg/dL Urine Glucose (UA) NEGATIVE (NEGATIVE) mg/dL Urine Ketones NEGATIVE (NEGATIVE) mg/dL Urine Occult Blood NEGATIVE (NEGATIVE) Urine Nitrite NEGATIVE (NEGATIVE) Urine Bilirubin NEGATIVE (NEGATIVE) Urine Urobilinogen 0.2 (NORMAL) (NORMAL) E.U./dL Ur Leukocyte Esterase NEGATIVE (NEGATIVE) Ur Microscopic Review NOT INDICATED Urine Culture Comments NOT INDICATED ABX Reporting Has patient been on IV antibiotics over the past 48 hours?: No Assessment/Plan - Problem List (1) Hyperkalemia Impression: today k is 5.2 continue hydration continue lab monitor continue tele (2) Atrial fibrillation Impression: HR is controlled at 70-90 continue metoprolol, hydration tele and vital monitor Qualifiers: Atrial fibrillation type: chronic Qualified Code(s): I48.2 - Chronic atrial fibrillation (3) Acute renal insufficiency Impression: acute on chronic renal insufficiency pt has one kidney, after hydration, pt's renal function return her baseline continue gently hydration lab monitor (4) Dehydration Impression: continue hydration with IVF of NS lab monitor (5) Myelodysplasia (myelodysplastic syndrome) Impression: pt has been on severe lymphocytopenia, anemia, and thrombocytopenia for a few months, continue blood confusion in [facility] clinic, follow up Dr. Alas will call and consult with dr. alas will transfusion of blood as needed neutropenia precaution lab monitor (6) Pain of right calf Impression: US reveals no DVT, pt still complaint of pain, there is no swelling, erythema, redness, warm, not indicated infection. will consideration of other image study if continue to complaint of pain
[2018-02-28] MEDS ORDERED: IOPAMIDOL-300 100 ML VIAL ONE (20:03)
[2018-02-28] MEDS ORDERED: IOPAMIDOL-300 100 ML VIAL IVP ONE (20:04)
[2018-02-28] MEDS ORDERED: BIMATOPROST 0.01% OPHTH DROPS 2.5 ML RIGHTEYE SCH (21:00)
--- NOTE | 2018-02-28 21:00 | CT Report ---
Procedure Date: 02/28/2018 Accession Number: [id number] / [id number] Procedure: CT - Lower Extremity Right W/ CPT Code: FULL RESULT: EXAM: RIGHT TIBIA/CALF CT WITH CONTRAST. EXAM DATE: 02/28/2018 08:08 PM. CLINICAL HISTORY: Pain at lower extremity. COMPARISON: None. TECHNIQUE: Thin-section axial images were acquired of the tibia/fibula/calf after administration of intravenous contrast. IV contrast: 80 mL of Isovue 300. Post-processing: Coronal and sagittal reformats. Other: None. In accordance with CT protocol optimization, one or more of the following dose reduction techniques were utilized for this exam: automated exposure control, adjustment of mA and/or KV based on patient size, or use of iterative reconstructive technique. FINDINGS: Bones: Moderate generalized osteopenia. No visible fracture. Joints: Tricompartmental joint space narrowing and subarticular sclerosis and osteophyte formation. Joint space narrowing is worst in the lateral compartment. There is a valgus deformity. Findings consistent with moderate to severe osteoarthritis. Musculature: Normal. No fatty atrophy. Other: Subcutaneous edema is visible throughout the calf. There are no visible fluid collections. Coarse vascular calcification throughout all the visible lower limb vessels consistent with atherosclerosis. IMPRESSION: 1. Severe right knee osteoarthritis. 2. Subcutaneous edema without a fluid collection. 3. No visible fracture or bony lysis. RADIA
[2018-02-28] MEDS: ATORVASTATIN 10 MG TABLET PO SCH (21:27)
[2018-02-28] MEDS: LATANOPROST 0.005% OPHTH DROPS RIGHTEYE SCH (21:37)
[2018-03-01] MEDS: DEXTROSE 5%-0.9% NACL 1,000 ML IV SCH (01:42)
[2018-03-01] MEDS: oxyCOD/ACETAMIN 5 MG/325 MG TABLET PO PRN ×3 (01:50→15:47)
[2018-03-01 04:45] LABS: CALCIUM 7.8 mg/dL (8.5-10.3)
[2018-03-01 04:47] LABS: BASOPHILS % (AUTO) 2.8 %; EOSINOPHILS % (AUTO) 0.4 %; LYMPHOCYTES % (AUTO) 63.8 %; MEAN CORPUSCULAR HEMOGLOBIN 29.3 pg (27.0-31.0); MEAN CORPUSCULAR HGB CONC 32.9 g/dL (32.0-36.0); MEAN CORPUSCULAR VOLUME 88.9 fL (81.0-99.0); MEAN PLATELET VOLUME 10.6 fL (7.9-10.8); MONOCYTES % (AUTO) 14.1 %; NEUTROPHILS % (AUTO) 18.9 %; RED BLOOD COUNT 2.27 10^6/uL (4.20-5.40)
[2018-03-01 04:54] LABS: CREATININE 1.1 mg/dL (0.4-1.0)
[2018-03-01 05:04] LABS: ABNORMAL LYMPHS % (MANUAL) 0 %; BAND NEUTROPHILS % (MANUAL) 0 %
[2018-03-01 05:24] LABS: LYMPHOCYTES # (MANUAL) 0.5 10^3/uL (1.5-3.5); LYMPHOCYTES % (MANUAL) 58 %; NEUTROPHILS # (MANUAL) 0.2 10^3/uL (1.5-6.6); NEUTROPHILS % (MANUAL) 30 %
[2018-03-01 05:25] LABS: DIFFERENTIAL COMMENT MANUAL DIFFERENTIAL; PLATELET ESTIMATE, MANUAL DECREASED (<130,000) (NORMAL)
[2018-03-01 05:26] LABS: HGB - HEMOGLOBIN 6.6 g/dL (12.0-16.0); WHITE BLOOD COUNT 0.8 x10^3/uL (4.8-10.8)
[2018-03-01 05:27] LABS: PLT - PLATELET COUNT 7 10^3/uL (130-450)
[2018-03-01] MEDS ORDERED: ACETAMINOPHEN 325 MG TABLET PO ONE (06:08)
[2018-03-01] MEDS: PANTOPRAZOLE 40 MG VIAL IVP SCH (06:46)
[2018-03-01] MEDS: AMOXICILLIN 250 MG CAPSULE PO SCH ×3 (06:47→21:03)
[2018-03-01] MEDS: SODIUM CHLORIDE FLUSH 0.9% 10 ML SYRINGE IVP PRN (06:47)
[2018-03-01] MEDS ORDERED: SODIUM POLYSTYRENE SULFONATE 15 GM/60 ML BOTTLE PO SCH (08:30)
[2018-03-01] MEDS: TOLTERODINE LA 2 MG CAPSULE PO SCH (09:01)
[2018-03-01] MEDS: SODIUM CHLORIDE 0.9% 1,000 ML IV SCH ×2 (09:01→19:02)
[2018-03-01] MEDS: MULTIVITAMIN TABLET PO SCH (09:02)
[2018-03-01] MEDS: METOPROLOL SUCCINATE 50 MG TABLET PO SCH (09:02)
[2018-03-01] MEDS: POLYETHYLENE GLYCOL 3350 17 GM PACKET PO SCH (09:03)
[2018-03-01] MEDS: prednisoLONE 1% OPHTH DROPS 75 DROPS/5 ML BOTTLE RIGHTEYE SCH (09:03)
[2018-03-01] MEDS: SODIUM CHLORIDE FLUSH 0.9% 10 ML SYRINGE IVP SCH ×2 (09:03→17:18)
[2018-03-01] MEDS: INSULIN ASPART 300 UNIT/3 ML PEN SUBQ SCH ×4 (09:11→20:09)
[2018-03-01] MEDS ORDERED: diphenhydrAMINE 25 MG CAPSULE PO ONE (10:00)
--- NOTE | 2018-03-01 16:05 | PROVIDER PROGRESS NOTE ---
Subjective - Prog Note Date Prog Note Date: 03/01/18 - Subjective Pt reports feeling: No change Subjective: pt feel tired. No fever, chill, SOB. I called Dr. Leilani Alas, pt's oncologist, and left message to Dr. Alas. Dr. Alas called back, and state pt had severe neutropenia and pancytopenia for a few months without infection or fever concerned, pt can be fine for be d/c if other medical concern is stable. Current Medications - Current Medications Current Medications: Active Medications Acetaminophen (Tylenol) 650 mg PO Q4HR PRN PRN Reason: Pain or Fever > 38C (100.4F) Amoxicillin (Amoxil) 500 mg PO TID [facility] Last Admin: 03/01/18 14:33 Dose: 500 mg Atorvastatin Calcium (Lipitor) 20 mg PO QPM [facility] Last Admin: 02/28/18 21:27 Dose: 20 mg Hydromorphone HCl (Dilaudid (Vial)) 2 mg IVP Q6H PRN PRN Reason: Severe Pain Sodium Chloride (Normal Saline 0.9%) 1,000 mls @ 100 mls/hr IV .Q10H [facility] Last Admin: 03/01/18 09:01 Dose: 100 mls/hr Insulin Aspart (Novolog) 1 - 5 unit SUBQ 0800,1200,1700,2100 [facility] PRN Reason: Protocol Last Admin: 03/01/18 17:18 Dose: Not Given Latanoprost (Xalatan Ophth Drops) 1 drops RIGHTEYE QPM [facility] Last Admin: 02/28/18 21:37 Dose: 1 drops Metoprolol Succinate (Toprol Xl) 50 mg PO DAILY [facility] Multivitamins (Theragran) 1 tab PO DAILY [facility] Last Admin: 03/01/18 09:02 Dose: 1 tab Ondansetron HCl (Zofran Inj) 4 mg IVP Q6HR PRN PRN Reason: Nausea / Vomiting Oxycodone HCl (Roxicodone) 1 mg PO Q4HR PRN PRN Reason: PAIN Pantoprazole Sodium (Protonix) 40 mg IVP QDAC [facility] Last Admin: 03/01/18 06:46 Dose: 40 mg Polyethylene Glycol (Miralax) 17 gm PO DAILY [facility] Last Admin: 03/01/18 09:03 Dose: Not Given Prednisolone (Pred Forte 1% Ophth Drops) 1 drops RIGHTEYE DAILY [facility] Last Admin: 03/01/18 09:03 Dose: 1 drops Sodium Chloride (Normal Saline Flush 0.9%) 10 ml IVP PRN PRN PRN Reason: NEEDED PER PROVIDER ORDERS Last Admin: 03/01/18 06:47 Dose: 10 ml Sodium Chloride (Normal Saline Flush 0.9%) 10 ml IVP 0100,0900,1700 [facility] Last Admin: 03/01/18 17:18 Dose: Not Given Tolterodine Tartrate (Detrol La) 4 mg PO DAILY [facility] Last Admin: 03/01/18 09:01 Dose: 4 mg Cholecalciferol (Vitamin D3) [Vitamin D3] 2,000 unit PO DAILY 04/02/16 Bimatoprost 0.01% Ophth Dops [Lumigan 0.01% Ophth Drops] 1 drops RIGHTEYE QPM prednisoLONE 1% OPHTH DROPS [Pred Forte 1% Ophth Drops] 1 drops RIGHTEYE DAILY 08/02/17 Multivitamin [Theragran] 1 tab PO DAILY 09/15/17 Amoxicillin 500 mg PO TID 02/27/18 Hydrocodone/Acetaminophen [Vicodin 5-300 mg Tablet] 1 tab PO Q4HR PRN 02/27/18 Atorvastatin Calcium 20 mg PO QPM 02/28/18 Metoprolol Succinate [Toprol Xl] 50 mg PO DAILY 02/28/18 Spironolactone [Spironolactone] 50 mg PO DAILY 02/28/18 Tolterodine Tartrate [Tolterodine Tartrate ER] 4 mg PO DAILY 02/28/18 Objective - Vital Signs/Intake & Output Reviewed Vital Signs: Yes Vital Signs: Vital Signs x48h Temp Pulse Pulse Resp BP BP Pulse Ox 03/01/18 15:15 36.3 C L 90 16 120/51 L 03/01/18 15:04 36.8 C 74 18 128/58 L 03/01/18 14:51 36.8 C 74 18 128/58 L 03/01/18 12:10 37.0 C 103 H 18 126/59 L 03/01/18 11:55 36.9 C 98 18 125/83 H 03/01/18 11:16 36.2 C L 104 H 18 153/78 H 99 03/01/18 11:07 Pulse Ox Pulse Ox 08/08/18 15:15 03/01/18 15:04 03/01/18 14:51 03/01/18 12:10 03/01/18 11:55 03/01/18 11:16 03/01/18 11:07 83 L 92 Intake & Output: Intake & Output 02/26/18 02/27/18 02/28/18 03/01/18 23:59 23:59 23:59 23:59 Intake Total 4500 1954 Output Total 150 200 Balance -150 4300 1954 - Objective General Appearance: positive: No acute distress, Alert. negative: Lethargic Eyes Bilateral: positive: Normal inspection, PERRL, No lid inflammation, Conjunctivae nml ENT: positive: ENT inspection nml, Pharynx nml, No signs of dehydration. negative: Purulent nasal drainage, Pharyngeal erythema, Oral lesions Neck: positive: Nml inspection, Thyroid nml, No JVD, Trachea midline. negative : Thyromegaly, Lymphadenopathy (R), Lymphadenopathy (L), Stiff neck, Carotid bruit, Tracheal deviation Respiratory: positive: Chest non-tender, No respiratory distress, Breath sounds nml. negative: Wheezes, Rales, Rhonchi Cardiovascular: positive: Regular rate & rhythm, No murmur, No gallop. negative : Irregularly irregular, Extrasystoles, Tachycardia, Bradycardia, Systolic murmur, Diastolic murmur Peripheral Pulses: 2+ Radial (R), 2+ Radial (L), 2+ Dorsalis pedis (R), 2+ Dorsalis pedis (L) Abdomen: positive: Non-tender, No organomegaly, Nml bowel sounds, No distention. negative: Tenderness, Guarding, Rebound Back: positive: Nml inspection. negative: CVA tenderness (R), CVA tenderness (L ) Skin: positive: Color nml, No rash, Warm, Dry, Pallor. negative: Cyanosis, Diaphoresis Extremities: positive: Non-tender, Full ROM, Nml appearance. negative: Calf tenderness, Joint swelling, Ledy's sign/cords Neurologic/Psychiatric: positive: Oriented x3, Sensation nml, Mood/affect nml. negative: Weakness, Sensory loss, Facial droop, Slurred/abnml speech, Depressed mood/affect - Lab Results Fish Bones: 03/02/18 04:15 08/09/18 04:15 Other Labs: Lab Results x24hrs 03/01/18 03/01/18 03/01/18 Range/Units 11:10 06:45 04:15 WBC 0.8 L* (4.8-10.8) x10^3/uL RBC 2.27 L (4.20-5.40) 10^6/uL Hgb 6.6 L* (12.0-16.0) g/dL Hct 20.2 L (37.0-47.0) % MCV 88.9 (81.0-99.0) fL MCH 29.3 (27.0-31.0) pg MCHC 32.9 (32.0-36.0) g/dL RDW 17.0 H (12.0-15.0) % Plt Count 7 L* (130-450) 10^3/uL MPV 10.6 (7.9-10.8) fL Neut # (Auto) Not Reportable Lymph # (Auto) Not Reportable [place] # (Auto) Not Reportable Eos # (Auto) Not Reportable Baso # (Auto) Not Reportable Absolute Nucleated RBC Not Reportable Total Counted 50 Band Neuts % (Manual) 0 (0 - 10) % Reactive Lymphs % (Man) 4 % Abnorm Lymph % (Manual) 0 % Nucleated RBC % Not Reportable Neutrophils # (Manual) 0.2 L* (1.5-6.6) 10^3/uL Lymphocytes # (Manual) 0.5 L (1.5-3.5) 10^3/uL Monocytes # (Manual) 0.0 (0.0-1.0) 10^3/uL Eosinophils # (Manual) 0.0 (0-0.7) 10^3/uL Basophils # (Manual) 0.0 (0-0.1) 10^3/uL Nucleated RBCs 1 % Differential Comment MANUAL DIFFERENTIAL Platelet Estimate DECREASED (<130,000) (NORMAL) RBC Morph Micro Appear 1+ POLYCHROMASIA (NORMAL) Sodium (135-145) mmol/L Potassium (3.5-5.0) mmol/L Chloride (101-111) mmol/L Carbon Dioxide (21-32) mmol/L Anion Gap (6-13) BUN (6-20) mg/dL Creatinine (0.4-1.0) mg/dL Estimated GFR (MDRD) (>89) Glucose (70-100) mg/dL POC Whole Bld Glucose 156 H (70 - 100) mg/dL Calcium (8.5-10.3) mg/dL Blood Type O POSITIVE Antibody Screen POSITIVE Antibody Identification Warm Auto Antibody Crossmatch See Detail 03/01/18 02/28/18 02/28/18 Range/Units 04:15 20:46 16:46 WBC (4.8-10.8) x10^3/uL RBC (4.20-5.40) 10^6/uL Hgb (12.0-16.0) g/dL Hct (37.0-47.0) % MCV (81.0-99.0) fL MCH (27.0-31.0) pg MCHC (32.0-36.0) g/dL RDW (12.0-15.0) % Plt Count (130-450) 10^3/uL MPV (7.9-10.8) fL Neut # (Auto) Lymph # (Auto) [place] # (Auto) Eos # (Auto) Baso # (Auto) Absolute Nucleated RBC Total Counted Band Neuts % (Manual) (0 - 10) % Reactive Lymphs % (Man) % Abnorm Lymph % (Manual) % Nucleated RBC % Neutrophils # (Manual) (1.5-6.6) 10^3/uL Lymphocytes # (Manual) (1.5-3.5) 10^3/uL Monocytes # (Manual) (0.0-1.0) 10^3/uL Eosinophils # (Manual) (0-0.7) 10^3/uL Basophils # (Manual) (0-0.1) 10^3/uL Nucleated RBCs % Differential Comment Platelet Estimate (NORMAL) RBC Morph Micro Appear (NORMAL) Sodium 133 L (135-145) mmol/L Potassium 5.5 H (3.5-5.0) mmol/L Chloride 108 (101-111) mmol/L Carbon Dioxide 20 L (21-32) mmol/L Anion Gap 5.0 L (6-13) BUN 47 H (6-20) mg/dL Creatinine 1.1 H (0.4-1.0) mg/dL Estimated GFR (MDRD) 47 L (>89) Glucose 141 H (70-100) mg/dL POC Whole Bld Glucose 118 H 146 H (70 - 100) mg/dL Calcium 7.8 L (8.5-10.3) mg/dL Blood Type Antibody Screen Antibody Identification Crossmatch Assessment/Plan - Problem List (1) Hyperkalemia Impression: Impression: K is 5.5, give once kayexalate, may be the cause of acute renal insufficiency continue to check potassium continue hydration, and lab monitor today k is 5.2 continue hydration continue lab monitor continue tele (2) Atrial fibrillation Impression: stable HR is controlled at 70-90 continue metoprolol, hydration tele and vital monitor (3) Acute renal insufficiency Impression: improved, continue gently hydration acute on chronic renal insufficiency pt has one kidney, after hydration, pt's renal function return her baseline continue gently hydration lab monitor (4) Dehydration Impression: continue hydration with IVF of NS lab monitor (5) Myelodysplasia (myelodysplastic syndrome) Impression: pt's HGB is below to 7.0 and Platelet is 7000. pt is order two unit of blood and 2 unit of Platelet will recheck CBC again pt has been on severe lymphocytopenia, anemia, and thrombocytopenia for a few months, continue blood confusion in [facility] clinic, follow up Dr. Alas will call and consult with dr. alas will transfusion of blood as needed neutropenia precaution lab monitor (6) Pain of right calf Impression: resolved US reveals no DVT, pt still complaint of pain, there is no swelling, erythema, redness, warm, not indicated infection. will consideration of other image study if continue to complaint of pain
[2018-03-01] MEDS ORDERED: oxyCODONE 5 MG TABLET PO PRN (16:53)
[2018-03-01] MEDS: LATANOPROST 0.005% OPHTH DROPS RIGHTEYE SCH (21:03)
[2018-03-01] MEDS: ATORVASTATIN 10 MG TABLET PO SCH (21:03)
[2018-03-01] MEDS ORDERED: diphenhydrAMINE 25 MG CAPSULE PO SCH (21:58)
[2018-03-02] MEDS: SODIUM CHLORIDE FLUSH 0.9% 10 ML SYRINGE IVP SCH ×2 (04:29→08:59)
[2018-03-02] MEDS: ACETAMINOPHEN 325 MG TABLET PO PRN ×2 (04:47→10:43)
[2018-03-02] MEDS: SODIUM CHLORIDE 0.9% 1,000 ML IV SCH (04:47)
[2018-03-02 04:58] LABS: BASOPHILS % (AUTO) 0.8 %; EOSINOPHILS % (AUTO) 0.5 %; HGB - HEMOGLOBIN 9.5 g/dL (12.0-16.0); LYMPHOCYTES % (AUTO) 61.9 %; MEAN CORPUSCULAR HEMOGLOBIN 30.3 pg (27.0-31.0); MEAN CORPUSCULAR HGB CONC 33.6 g/dL (32.0-36.0); MEAN CORPUSCULAR VOLUME 90.2 fL (81.0-99.0); MEAN PLATELET VOLUME 8.3 fL (7.9-10.8); MONOCYTES % (AUTO) 19.2 %; NEUTROPHILS % (AUTO) 17.6 %; PLT - PLATELET COUNT 62 10^3/uL (130-450); RED BLOOD COUNT 3.14 10^6/uL (4.20-5.40); RED CELL DISTRIBUTION WIDTH 16.7 % (12.0-15.0)
[2018-03-02 05:07] LABS: WHITE BLOOD COUNT 0.8 x10^3/uL (4.8-10.8)
[2018-03-02 05:08] LABS: ABNORMAL LYMPHS % (MANUAL) 0 %; BAND NEUTROPHILS % (MANUAL) 0 %
[2018-03-02 05:32] LABS: NEUTROPHILS % (MANUAL) 26 %
[2018-03-02 05:33] LABS: DIFFERENTIAL COMMENT MANUAL DIFFERENTIAL; LYMPHOCYTES # (MANUAL) 0.6 10^3/uL (1.5-3.5); LYMPHOCYTES % (MANUAL) 60 %; NEUTROPHILS # (MANUAL) 0.2 10^3/uL (1.5-6.6); PLATELET ESTIMATE, MANUAL DECREASED (<130,000) (NORMAL); RBC MORPHOLOGY (MULTIPLE) NORMAL APPEARANCE (NORMAL)
[2018-03-02] MEDS: AMOXICILLIN 250 MG CAPSULE PO SCH (06:37)
[2018-03-02] MEDS: PANTOPRAZOLE 40 MG VIAL IVP SCH (06:38)
[2018-03-02] MEDS: SODIUM CHLORIDE FLUSH 0.9% 10 ML SYRINGE IVP PRN (06:38)
[2018-03-02 08:43] VITALS: BP 94/52
[2018-03-02] MEDS: INSULIN ASPART 300 UNIT/3 ML PEN SUBQ SCH (08:59)
[2018-03-02] MEDS ORDERED: METOPROLOL SUCCINATE 50 MG TABLET PO SCH (09:00)
[2018-03-02] MEDS ORDERED: TOLTERODINE TARTRATE 4 MG PO SCH (09:00)
[2018-03-02] MEDS ORDERED: SPIRONOLACTONE 25 MG TABLET PO SCH (09:00)
[2018-03-02] MEDS: prednisoLONE 1% OPHTH DROPS 75 DROPS/5 ML BOTTLE RIGHTEYE SCH (09:27)
[2018-03-02] MEDS: POLYETHYLENE GLYCOL 3350 17 GM PACKET PO SCH (09:27)
[2018-03-02] MEDS: MULTIVITAMIN TABLET PO SCH (09:28)
[2018-03-02] MEDS: TOLTERODINE LA 2 MG CAPSULE PO SCH (09:28)
--- NOTE | 2018-03-02 12:25 | Discharge Plan ---
Discharge Plan Disposition: 06 Home Health Service Condition: Poor Diet: Regular Activity Restrictions: Activity as Tolerated Shower Restrictions: No (fall precaution, caregiver closely monitor) Additional Instructions or Follow Up instructions: You may follow up your PCP in one week, follow up your oncologist in the schedule, follow up your palliative care on tomorrow. Should your symptoms return or worse, your may present ER or call 911 for help. Follow-Up Care: Home Health - PT No Smoking: If you smoke, Please STOP! Call for help. Follow-up with: Cal Frank MD [Primary Care Provider] -
--- NOTE | 2018-03-02 12:32 | DISCHARGE SUMMARY ---
Discharge Summary Discharge Date: 03/02/18 Discharging Provider: BLACK Primary Care Provider: Dr. Miller Condition at Discharge: Poor Discharge Disposition: Home Health Service Discharge Facility Name: home - DIAGNOSES Admission Diagnoses: (1) Hyperkalemia (2) Atrial fibrillation (3) Acute renal insufficiency (4) Dehydration (5) Myelodysplasia (myelodysplastic syndrome) (6) Pain of right calf Discharge Diagnoses with Status of Each Condition: (1) Hyperkalemia resolved (2) Atrial fibrillation stable, HR 76 (3) Acute renal insufficiency resolved as pt's baseline (4) Dehydration resolved (5) Myelodysplasia (myelodysplastic syndrome) pt has been pancytopenia for a few months. Pt had transfusion of blood and Platelet. Called her oncologist, pt can be safely D/C charge. follow up her oncologist. (6) Pain of right calf Resolved. US and CT reveals unremarkable. (7) palliative care pt and her family request palliative care. Palliative care provider will visit pt on tomorrow. - HPI History of Present Illness: pt was admitted for right lower extremity calf pain. US and CT were done for pt , No acute significant finding was in her right lower extremity. pt was found to have some acute renal injury and hyperkalemia. after hydration, and medical treatment, pt's renal function return her baseline. Hyperkalemia was resolved. pt developed severe pancytopenia from her myelodysplastic syndrome. pt had blood and Platelet transfusion. - ALLERGIES Allergies/Adverse Reactions: Allergies Allergy/AdvReac Type Severity Reaction Status Date / Time lidocaine Allergy Unknown Verified 02/27/18 20:20 lisinopril Allergy Rash Verified 02/27/18 20:20 - MEDICATIONS Home Medications: Ambulatory Orders Medication Instructions Recorded Confirmed Cholecalciferol (Vitamin D3) 2,000 unit PO DAILY 04/02/16 02/27/18 [Vitamin D3] Bimatoprost 0.01% Ophth Dops 1 drops RIGHTEYE QPM 08/02/17 02/27/18 [Lumigan 0.01% Ophth Drops] prednisoLONE 1% OPHTH DROPS [Pred 1 drops RIGHTEYE DAILY 08/02/17 02/27/18 Forte 1% Ophth Drops] Multivitamin [Theragran] 1 tab PO DAILY 09/15/17 02/27/18 Lisinopril [Zestril] 10 mg PO DAILY #30 tablet 09/18/17 02/27/18 Amoxicillin 500 mg PO TID 02/27/18 02/27/18 Hydrocodone/Acetaminophen [Vicodin 1 tab PO Q4HR PRN 02/27/18 02/27/18 5-300 mg Tablet] Atorvastatin Calcium 20 mg PO QPM 02/28/18 02/28/18 Metoprolol Succinate [Toprol Xl] 50 mg PO DAILY 02/28/18 02/28/18 Spironolactone 50 mg PO DAILY 02/28/18 02/28/18 Tolterodine Tartrate [Tolterodine 4 mg PO DAILY 02/28/18 02/28/18 Tartrate ER] - PHYSICAL EXAM AT DISCHARGE General Appearance: positive: No acute distress, Alert. negative: Lethargic Eyes Bilateral: positive: Normal inspection, PERRL, No lid inflammation, Conjunctivae nml ENT: positive: ENT inspection nml, Pharynx nml, No signs of dehydration. negative: Purulent nasal drainage, Pharyngeal erythema, Oral lesions Neck: positive: Nml inspection, Thyroid nml, No JVD, Trachea midline. negative : Thyromegaly, Lymphadenopathy (R), Lymphadenopathy (L), Stiff neck, Swelling/ bruising, Tracheal deviation Respiratory: positive: Chest non-tender, No respiratory distress, Breath sounds nml. negative: Wheezes, Rales, Rhonchi Cardiovascular: positive: Regular rate & rhythm, No murmur, No gallop. negative : Irregularly irregular, Extrasystoles, Tachycardia, Bradycardia, JVD present, Systolic murmur, Diastolic murmur Peripheral Pulses: positive: 2+ Abdomen: positive: Non-tender, No organomegaly, Nml bowel sounds, No distention. negative: Tenderness, Guarding, Rebound Back: positive: Nml inspection. negative: CVA tenderness (R), CVA tenderness (L ) Skin: positive: Color nml, No rash, Warm, Dry. negative: Cyanosis, Diaphoresis , Pallor Extremities: positive: Non-tender, Full ROM, Nml appearance. negative: Calf tenderness, Joint swelling, Ledy's sign/cords Neurologic/Psychiatric: positive: Oriented x3, Sensation nml, Mood/affect nml. negative: Weakness, Sensory loss, Facial droop, Slurred/abnml speech, Depressed mood/affect - LABS Result Diagrams: 03/02/18 04:15 03/02/18 04:15 - FOLLOW UP Follow Up: You may follow up your PCP in one week, follow up your oncologist in the schedule, follow up your palliative care on tomorrow. Should your symptoms return or worse, your may present ER or call 911 for help. - TIME SPENT Time Spent in Discharge (Minutes): 50
== END 2018-03-02 14:15 | disposition home or self-care (01) | DRG 641 ==
LOC: ED 17:51 → MS3 21:40
PROVIDERS: ADMIT Internal Medicine; ATTEND Nurse Practitioner Gerontology
PROC: 30233N1 Transfusion of Nonautologous Red Blood Cells into Peripheral Vein, Percutaneous Approach (ICD-10-PCS; principal; 2018-03-01)
DX: R79.89 Other specified abnormal findings of blood chemistry (principal); E87.5 Hyperkalemia; M79.604 Pain in right leg; N17.9 Acute kidney failure, unspecified; I13.0 Hypertensive heart and chronic kidney disease with heart failure and stage 1 through stage 4 chronic kidney disease, or unspecified chronic kidney disease; I50.30 Unspecified diastolic (congestive) heart failure; I11.0 Hypertensive heart disease with heart failure; I50.9 Heart failure, unspecified; Q60.0 Renal agenesis, unilateral; I48.2 Chronic atrial fibrillation; Z74.01 Bed confinement status; E86.0 Dehydration; D46.9 Myelodysplastic syndrome, unspecified; E11.22 Type 2 diabetes mellitus with diabetic chronic kidney disease; N18.9 Chronic kidney disease, unspecified; M79.661 Pain in right lower leg; I27.20 Pulmonary hypertension, unspecified; H40.9 Unspecified glaucoma; K04.7 Periapical abscess without sinus; T50.0X6A Underdosing of mineralocorticoids and their antagonists, initial encounter; T44.7X6A Underdosing of beta-adrenoreceptor antagonists, initial encounter; T46.4X6A Underdosing of angiotensin-converting-enzyme inhibitors, initial encounter; Y92.009 Unspecified place in unspecified non-institutional (private) residence as the place of occurrence of the external cause; Z79.899 Other long term (current) drug therapy; Z51.5 Encounter for palliative care; Z66 Do not resuscitate; Z98.818 Other dental procedure status
CPT/HCPCS: 36415; 71046; 80048; 80053; 81001; 81003; 82040; 82247; 83036; 84075; 84132; 84155; 84450; 84460; 84484; 85025; 85610; 86850; 86870; 86900; 86901; 86922; 87040; 87086; 93005; 93306; 96360; 99284

== ENCOUNTER 2018-03-06 11:45 | Outpatient (CLI) | payer MEDICARE, OTHER ==
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
== END 2018-03-06 11:46 | disposition home or self-care (01) ==
LOC: PC 11:45
PROVIDERS: ATTEND Nurse Practitioner Adult Health
DX: Z51.5 Encounter for palliative care (principal); D46.9 Myelodysplastic syndrome, unspecified; K59.00 Constipation, unspecified; R53.83 Other fatigue; I50.9 Heart failure, unspecified; I48.91 Unspecified atrial fibrillation; D61.818 Other pancytopenia; I70.1 Atherosclerosis of renal artery; E11.9 Type 2 diabetes mellitus without complications; R60.0 Localized edema; Z66 Do not resuscitate; F41.9 Anxiety disorder, unspecified
CPT/HCPCS: 99344

== ENCOUNTER 2018-03-09 09:27 | Outpatient (CLI) | payer MEDICARE, OTHER ==
[2018-03-09 12:19] LABS: BASOPHILS % (AUTO) 3.1 %; EOSINOPHILS % (AUTO) 0.7 %; HGB - HEMOGLOBIN 9.7 g/dL (12.0-16.0); LYMPHOCYTES % (AUTO) 50.9 %; MEAN CORPUSCULAR HGB CONC 33.7 g/dL (32.0-36.0); MEAN CORPUSCULAR VOLUME 89.1 fL (81.0-99.0); MEAN PLATELET VOLUME 10.3 fL (7.9-10.8); MONOCYTES % (AUTO) 33.1 %; NEUTROPHILS % (AUTO) 12.2 %; RED BLOOD COUNT 3.22 10^6/uL (4.20-5.40); RED CELL DISTRIBUTION WIDTH 17.1 % (12.0-15.0)
[2018-03-09 12:41] LABS: ALBUMIN 3.4 g/dL (3.2-5.5); ALKALINE PHOSPHATASE 59 IU/L (42-121); ALT ALANINE AMINOTRANSFERASE < 10 IU/L (10-60); AST ASPARTATE AMINOTRANSFERASE 14 IU/L (10-42); BILIRUBIN,TOTAL 1.5 mg/dL (0.2-1.0); BUN - BLOOD UREA NITROGEN 23 mg/dL (6-20); CALCIUM 8.5 mg/dL (8.5-10.3); CARBON DIOXIDE - CO2 26 mmol/L (21-32); CHLORIDE 101 mmol/L (101-111); CHOL/HDL RATIO 2.9 (<4.4); CHOLESTEROL 83 mg/dL; CREATININE 0.9 mg/dL (0.4-1.0); GFR - MDRD 59 (>89); GLUCOSE 122 mg/dL (70-100); HDL CHOLESTEROL 29 mg/dL; LDL CHOLESTEROL,CALCULATED 35 mg/dL; LDL/HDL RATIO 1.2 (<4.4); SODIUM 133 mmol/L (135-145); TOTAL PROTEIN 6.8 g/dL (6.7-8.2); VLDL CHOLESTEROL 19 mg/dL
[2018-03-09 12:53] LABS: HEMOGLOBIN A1C 0.44 g/dL; HEMOGLOBIN A1C % 6.2 % (4.6-6.2)
[2018-03-09 15:28] LABS: PLT - PLATELET COUNT 11 10^3/uL (130-450); WHITE BLOOD COUNT 0.8 x10^3/uL (4.8-10.8)
[2018-03-09 15:29] LABS: ABNORMAL LYMPHS % (MANUAL) 0 %
[2018-03-09 15:32] LABS: BAND NEUTROPHILS % (MANUAL) 4 %; LYMPHOCYTES # (MANUAL) 0.4 10^3/uL (1.5-3.5); LYMPHOCYTES % (MANUAL) 51 %; METAMYELOCYTES % (MANUAL) 8 %; MYELOCYTES % (MANUAL) 8 %; NEUTROPHILS # (MANUAL) 0.1 10^3/uL (1.5-6.6); NEUTROPHILS % (MANUAL) 12 %; PROMYELOCYTES % (MANUAL) 3 %
[2018-03-09 15:33] LABS: PLATELET ESTIMATE, MANUAL DECREASED (<130,000) (NORMAL); PLATELET MORPHOLOGY 1+ GIANT PLATELETS (NORMAL)
[2018-03-09 15:34] LABS: DIFFERENTIAL COMMENT MANUAL DIFFERENTIAL
== END 2018-03-09 09:28 | disposition home or self-care (01) ==
LOC: LAB.WCP 09:27
PROVIDERS: ATTEND Family Medicine
DX: D46.9 Myelodysplastic syndrome, unspecified (principal); E11.9 Type 2 diabetes mellitus without complications; I50.9 Heart failure, unspecified; D69.6 Thrombocytopenia, unspecified; I48.91 Unspecified atrial fibrillation; I10 Essential (primary) hypertension; E78.5 Hyperlipidemia, unspecified
CPT/HCPCS: 36415; 80053; 80061; 83036; 83721; 83880; 85025

== ENCOUNTER 2018-03-13 19:30 | Outpatient (CLI) | payer MEDICARE, OTHER ==
--- NOTE | 2018-03-13 19:33 | CONSULTATION NOTE ---
Palliative Care Follow Up - Referral Referring Provider: Dr. Tanner Frank Time of Visit: Referral setting: Home (It is a taxing physical effort for the patient leave the home secondary to rectal pain and fatigue.) Referral Reason: MDS-transfusion dependent/Rectal pain - Information Sources Records reviewed: Previous records reviewed History/Review of Systems obtained from: Patient, Caregiver (Ave present; she is "new" caregiver who has been with patient before) Exam limitations: No limitations - History of Present Illness Update Brief HPI Update: This is a spunky 87-year-old woman has known myelodysplastic syndrome, is transfusion dependent, is currently on supportive measures only with Procrit and transfusions as needed. She does have significant pancytopenia, did poorly on Revlimid, and now has developed persistent rectal pain. Of note, her most recent labs, did show 8 percent blasts this is a new finding, This was indicated to the [facility]. Patient also has underlying CHF, currently this is controlled, her latest BNP is decreased. She does have baseline shortness of breath, fatigue, and poor activity tolerance. She does have known atrial fib, currently not on anticoagulant because of her pancytopenia, renal artery stenosis, left lower lobe pleural effusion, and anorexia. Her biggest complaint today is her rectal pain. She reports this started after she had diarrhea most likely attributed to her antibiotics. She is now having soft stools. But the pain is been persistent and increasing. She did see Dr. covarrubias on Tuesday, had ordered Proctosol HC suppositories. Unfortunately they were $800 and she did not obtain. She has been using some external hemorrhoid cream without relief, which alecia Tucks, and some natural remedies. She cannot stand to sit or put pressure on it, she is not feverish or chilled at this time , nor is she having rectal drainage. Concern of course for underlying fissure and risk for infection. Social History - Living Situation Living arrangement: At home Living Situation: Alone Support System: Patient's daughter Shaina lives nearby, she reports they have mended their bridges, she has less distressed with her today. She reports her son also called and apologized, all in agreement they want the best for her and for her to be cared for. She does have full caregiving support Tuesday through Tuesday now, 90 1 PM; and 5:56 PM. Valentina is out sick today, but Ave who has cared for her before will be doing Tuesday and Sundays. Medications/Allergies - Medications Home Medications: Ambulatory Orders Medication Instructions Recorded Confirmed Cholecalciferol (Vitamin D3) 2,000 unit PO DAILY 04/02/16 03/07/18 [Vitamin D3] Bimatoprost 0.01% Ophth Dops 1 drops RIGHTEYE QPM 08/02/17 03/07/18 [Lumigan 0.01% Ophth Drops] prednisoLONE 1% OPHTH DROPS [Pred 1 drops RIGHTEYE DAILY 08/02/17 03/07/18 Forte 1% Ophth Drops] Multivitamin [Theragran] 1 tab PO DAILY 09/15/17 03/07/18 Lisinopril [Zestril] 10 mg PO DAILY #30 tablet 09/18/17 03/07/18 Atorvastatin Calcium 20 mg PO QPM 02/28/18 03/07/18 Metoprolol Succinate [Toprol Xl] 50 mg PO DAILY 02/28/18 03/07/18 Spironolactone 25 mg PO BID 02/28/18 03/07/18 Tolterodine Tartrate [Tolterodine 4 mg PO DAILY 02/28/18 03/07/18 Tartrate ER] Acetaminophen 650 mg PO BID 03/06/18 03/07/18 Polyethylene Glycol 3350 [Miralax] 8.6 - 17 gm PO DAILY PRN 03/06/18 03/07/18 Amoxicillin 4 tab ORAL ONCE PRN 03/07/18 03/07/18 Epoetin [Procrit] 2 ml SQ DAILY 03/07/18 03/07/18 Furosemide [Lasix] 1 tab ORAL DAILY 03/07/18 03/07/18 - Allergies Allergies/Adverse Reactions: Allergies Allergy/AdvReac Type Severity Reaction Status Date / Time lidocaine Allergy Unknown Verified 02/27/18 20:20 lisinopril Allergy Rash Verified 02/27/18 20:20 Review of Systems - Constitutional Constitutional: reports: Fatigue, Poor appetite. denies: Fever, Chills - Eyes Eyes: reports: Vision loss - Ears, Nose & Throat Ears, Nose & Throat: reports: Other (recent dental work; reports pain resolved) - Cardiovascular Cardiovascular: reports: Edema, Exertional dyspnea, Decr. exercise tolerance. denies: Palpitations, Chest pain - Respiratory Respiratory: reports: Orthopnea, SOB with exertion - Gastrointestinal Gastrointestinal: reports: Abdominal distention, Bloating, Early satiety, Other ("hemmorhoids" with increasing pain through week). denies: Constipation, Diarrhea, Reflux/heartburn - Genitourinary Genitourinary: reports: Frequency. denies: Dysuria - Musculoskeletal Musculoskeletal: reports: Back pain, Stiffness, Muscle weakness, Joint pain ( right knee; wears brace for support), Assistive devices (uses walker for ambulation) - Integumentary Integumentary: reports: Other (bruising) - Neurological Neurological: reports: General weakness - Psychiatric Psychiatric: reports: Depression, Anxiety - Endocrine Endocrine: reports: Other (c/o extremities being cold all the time) - Hematologic/Lymphatic Hematologic/Lymphatic: reports: Anemia, Bruising - All Other Systems All Other Systems: reports: Reviewed and negative Physical Exam - Vital Signs Temperature: 97.8 C Pulse Rate: 110 Respiratory Rate: 20 O2 Saturation: 94 (ra @ rest) Blood Pressure: 92/52 - Physical Exam General Appearance: positive: Mild distress (related to persistant rectal pain) Eyes Bilateral: positive: Normal inspection ENT: positive: No signs of dehydration Neck: positive: No JVD, Trachea midline Cardiovascular: positive: Tachycardia Respiratory: positive: Other (LLL diminished 1/3 up). negative: Wheezes, Rales , Rhonchi Abdomen: positive: Non-tender, Nml bowel sounds, Distended, Taut, Other ( patient with external hemorrhoidal rectal folds; noted at anal sphincter small area of erosion; small external hemmorhoid swollen at anal verge; very painful on exam or manipulation) Skin: positive: Pallor, Bruising Extremities: positive: Pedal edema (trace to 1+ up to midcalf) Neurologic/Psychiatric: positive: Oriented x3, Depressed mood/affect, Flat affect Palliative Care - POLST Patient has POLST: Yes POLST Status: DNR, Comfort Measures Pain: Pain worsening, Location (rectum;) Tiredness/Fatigue: Severe (7-10) Drowsiness/Sedation: Mild (1-3) Nausea: None Depression: Mild (1-3) Anxiety: Moderate (4-6) (related to rectal pain) Dyspnea: Mild (1-3) Anorexia: Moderate (4-6) Sleep: Variable sleep pattern (up at night to void) Constipation: No Performance Status: Patient does spend most of the time in bed, she does ambulate ends up for meals. She can ambulate back and forth to the bathroom with her walker. She has been needing just moderate assist with bathing, is more painful now for her to be up related to her rectal pain, this is quite discouraging to her as she was making improvement - Palliative Care Discussion: Patient reports she was encouraged after seeing her oncologist, reports things are holding. She feels like she has had good conversations with her children this week and feeling somewhat more encouraged. She is discouraged though related to her physical discomfort and persistent pain as it does impact her quality of life. She does have more increased support. Given her distress related to her rectal pain, we did not further explore her end-of-life wishes, though will need to continue to fairly aggressively address these as she is expected to have a quick decline Results - Lab Results Lab results reviewed: Yes Impression and Recommendations - Palliative Care Impression: This is a kurt 87-year-old woman with MDS and pancytopenia, currently trans- patient dependent. She now presents with rectal pain, attributing to hemorrhoids, concern for anal fissure. She is at high risk for sequela of an infection. She is managing currently with caregiver support in the home setting , her goals to be at home both now and end of life. Palliative care to provide support for symptom management, anticipatory guidance, and transition to hospice when appropriate Recommendations/Counseling Done: 1.Rectal pain. Patient continues to take a softener daily, we will obtain some MiraLAX for as needed use, she is hesitant to change secondary to concern for diarrhea. She reports currently her bowels are soft. On examination patient does have some evidence of external hemorrhoids as well as some erosion. Call the pharmacy there is Proctosol-HC ointment with applicator, Will have caregivers to see her private, a sister twice a day, as well as merchandise pickup/receiving associate regular Anusol suppositories for comfort. She is to continue the witch alecia Tucks, and external cream which she can apply at night. Reviewed patient is at high risk for infection, if she notes any rectal drainage are no improvement in pain to notify myself or PCP. Like to see concussions with cut out for coccyx and rectal area, recommendation made will try and obtain one for sitting. They are looking at her recliner, or other ways to support her. She is not willing at this point in time to consider a hospital bed 2. MDS with pancytopenia. Patient choosing at this point to continue transfusions, this would be alignment with her goals. Unfortunately her labs on Tuesday do reflect 8% blasts, these are drawn by PCP this is communicated to the clinic. She is receiving ongoing support with Procrit. She reports overall she feels a little bit better other than her rectal pain. 3. CHF. Patient does have right-sided heart failure, abdomen is quite taut, Denies any increased shortness of breath or change from baseline. She is currently on diuretics, she is slightly hypotensive today, but has had decreased intake. 4. Anorexia. Patient does report early satiety, has been eating 3 small meals a day. Discussed adding instant breakfast, as the insurance caused diarrhea in the past. She will continue with small frequent meals, encouraged to increase her fluid intake but not to overdo. 5. Fatigue. This is multifactorial in origin, unfortunately which she likes to do is sit and do crossword puzzles, and sitting is uncomfortable. Did encourage her to continue with the PT referral, specifically around safety, equipment needs, and recommendations for home exercise program. They are due to see her on Tuesday. 6. Advanced care planning. Patient does have [address] in place, is currently on the tuedg. Has increased her caregiving help, we will continue to explore the flexibility of this as she becomes more dependent. Will look in the future to include daughter hopefully at one of our visits. Patient's goals are still to remain at home.
== END 2018-03-13 19:31 | disposition home or self-care (01) ==
LOC: PC 19:30
PROVIDERS: ATTEND Nurse Practitioner Adult Health
DX: Z51.5 Encounter for palliative care (principal); K62.89 Other specified diseases of anus and rectum; D46.9 Myelodysplastic syndrome, unspecified; D61.818 Other pancytopenia; I50.9 Heart failure, unspecified; R63.0 Anorexia; R53.83 Other fatigue; K64.4 Residual hemorrhoidal skin tags; F41.9 Anxiety disorder, unspecified; F32.9 Major depressive disorder, single episode, unspecified
CPT/HCPCS: 99215; 99349

== ENCOUNTER 2018-03-20 11:45 | Outpatient (CLI) | payer MEDICARE, OTHER ==
--- NOTE | 2018-03-20 15:08 | CONSULTATION NOTE ---
Palliative Care Follow Up - Referral Referring Provider: Dr. Tanner Frank Time of Visit: [id number] Referral setting: Home (It is a taxing and considerable effort for the patient to leave the home, patient does seem to have both functional and cognitive decline, plus increased symptom burden.) Referral Reason: MDS-Transfusion dependent/Rectal prolapse/urinary frequency - Information Sources Records reviewed: Previous records reviewed History/Review of Systems obtained from: Patient, Family (reviewed last few days with Claudia [phone]; main caregiver patient poor memory to give ROS) Exam limitations: Clinical condition (patient anxious and feeling poorly; presents with some STM issues) - History of Present Illness Update Brief HPI Update: This is a spunky 87-year-old woman who has known myelodysplastic syndrome, is transfusion dependent, is receiving supportive measures with Procrit and transfusions as needed. She was noted to have low counts in the fall 2016, was diagnosed at the beginning of the year 2017. She was put on Revlimid but did poorly with side effects. Patient does have underlying CHF, this is been a delicate balance with her need for transfusions. She was recently hospitalized for this sequela having tooth abscesses and ended with infection, dehydration, and weakness. She has underlying atrial fib, she is not on anticoagulant because of her pancytopenia, has known renal artery stenosis, left lower lobe pleural effusion, and fatigue. She fell last Tuesday, requiring 911 support. She did bruise her back has a huge large hematoma, increased right knee pain and effusion, and now presents with no improvement or resolution of her rectal pain. With the fall I had spoken to the caregiver on Tuesday, I did have them initiate some oxycodone/APAP they had with some improvement in discomfort, the patient was worried it was adding to her fatigue since stopped it yesterday.Today she has noted rectal prolapse, with erosion noted, hence severe pain and discomfort. She has not improved at all with the Proctosol HC, most of her comfort comes from warm and hot compresses. She also has had for the last few days increasing frequency and urgency, as well as dysuria. I did obtain a UA, but will go ahead given her pancytopenia and symptoms start her on some Bactrim. Patient has had poor intake, appears dehydrated. She reports things did not have any good taste, she is anorexic though denies nausea she is more anxious about being by herself, her caregiving support is 9-1 pm; 4-6 pm, She had to call Valentina over the weekend.She is getting much more anxious and worried about being able to take care of herself and has used a bedside commode.Patient is somewhat ambiguous when comes to defining goals, she reports "I am not ready to ", but does not want to be hospitalized, she wants to be comfortable, and she wants to be in her own home. Patient does appear quite fragile and as a failure to thrive today, as well as experiencing the sequela of her fall and most likely infection. Social History - Living Situation Living arrangement: At home Living Situation: Alone Support System: Her main caregiver Valentina, Has been with her the last several months, she is aware patient is deteriorating and wants to support her in keeping her home. She does recognize patient is deteriorating, and again presents with ambiguous statements, but overall feels patient does want to be home as well. Her daughter Shaina Wesley, she is a physical therapist, and works fairly full- time. She does errands and shopping but has not been part of the actual caregiving, but is the DPOA. Medications/Allergies - Medications Home Medications: Ambulatory Orders Medication Instructions Recorded Confirmed Cholecalciferol (Vitamin D3) 2,000 unit PO DAILY 04/02/16 03/20/18 [Vitamin D3] Bimatoprost 0.01% Ophth Dops 1 drops RIGHTEYE QPM 08/02/17 03/20/18 [Lumigan 0.01% Ophth Drops] prednisoLONE 1% OPHTH DROPS [Pred 1 drops RIGHTEYE DAILY 08/02/17 03/20/18 Forte 1% Ophth Drops] Multivitamin [Theragran] 1 tab PO DAILY 09/15/17 03/20/18 Metoprolol Succinate [Toprol Xl] 50 mg PO DAILY 02/28/18 03/20/18 Spironolactone 25 mg PO BID 02/28/18 03/20/18 Tolterodine Tartrate [Tolterodine 4 mg PO .HOLD 02/28/18 03/20/18 Tartrate ER] Acetaminophen 650 mg PO BID 03/06/18 03/20/18 Polyethylene Glycol 3350 [Miralax] 8.6 - 17 gm PO DAILY PRN 03/06/18 03/20/18 Hydrocortisone [Procto-Med Hc] 1 applic PO BID 03/20/18 03/20/18 Lactobacillus Acidophilus 1 cap PO DAILY 03/20/18 03/20/18 [Probiotic Acidophilus] Sulfamethoxazole/Trimethoprim 1 tab PO BID MDD 7 days 03/20/18 03/20/18 [Bactrim 400-80 mg Tablet] oxyCODONE [Roxicodone] 2.5 - 5 mg PO Q3HR PRN 03/20/18 03/20/18 - Allergies Allergies/Adverse Reactions: Allergies Allergy/AdvReac Type Severity Reaction Status Date / Time lidocaine Allergy Unknown Verified 02/27/18 20:20 lisinopril Allergy Rash Verified 02/27/18 20:20 Review of Systems - Constitutional Constitutional: reports: Fatigue, Weakness, Poor appetite (eating very little over weekend;) - Eyes Eyes: reports: Vision loss (right eye no vision) - Ears, Nose & Throat Ears, Nose & Throat: reports: Hearing loss, Dental decay (recent dental work), Dry mouth - Cardiovascular Cardiovascular: reports: Irregular heart rate, Exertional dyspnea, Decr. exercise tolerance, Orthopnea - Respiratory Respiratory: reports: Wheezing, SOB with exertion - Gastrointestinal Gastrointestinal: reports: Abdominal distention, Rectal bleeding (with some bleeding small amount on pads last two BMs), Bloating, Poor appetite, Early satiety, Other (alternating diarrhea/constipation; feels ointments have not made any improvements; warm alternating with cold on rectal tissues most comforting; fearful of incontinency or moving bowels) - Genitourinary Genitourinary: reports: Frequency, Urgency - Musculoskeletal Musculoskeletal: reports: Back pain, Muscle aches, Stiffness, Limited range of motion, Muscle weakness, Joint pain (right knee worse since fall last Tuesday), Joint swelling, Transfer issues (using commode at night; first time had been ambulatory) - Integumentary Integumentary: reports: Dryness - Neurological Neurological: reports: General weakness, Memory problems - Psychiatric Psychiatric: reports: Depression, Anxiety - Endocrine Endocrine: reports: Intolerance to cold - Hematologic/Lymphatic Hematologic/Lymphatic: reports: Anemia, Bruising (large raised hematoma on back with bruising at distal end about size 6 x 5 inches and 1 inch high;) - All Other Systems All Other Systems: reports: Reviewed and negative Physical Exam - Vital Signs Temperature: 96.9 C Pulse Rate: 96 (irregular; increase with activity and anxiety) Respiratory Rate: 20 Blood Pressure: 92/42 - Physical Exam General Appearance: positive: Moderate distress, Anxious Eyes Bilateral: positive: Normal inspection ENT: positive: Dry mucous membranes, Other (right ear red/having trouble getting comfortable) Neck: positive: No JVD, Trachea midline Cardiovascular: positive: Irregular, Tachycardia Respiratory: positive: Diminished throughout, Wheezes (expiratory upper airway clear with cough) Abdomen: positive: Nml bowel sounds, Distended, Taut, Other (rectal prolapse noted today; many rectal folds; lesion on external hemorrhoid with eschar; severly tender to touch; no bleeding at visit though looks very friable) Skin: positive: Pallor, Dryness, Bruising Extremities: positive: Pedal edema, Joint swelling (right knee worsened with fall) Neurologic/Psychiatric: positive: Disoriented to time, Weakness, Depressed mood/ affect, Flat affect Palliative Care - POLST Patient has POLST: Yes POLST Status: DNR, Comfort Measures Pain: Pain worsening (Had caregiver try oxycodone 5 mg 3-4 times a day as a had an old prescription of oxycodone 5 mg/325 mg in the home to see if we could address patient's severe discomfort. Reports she did get relief, but then she has been more tired, and had stopped since Tuesday. We did discuss in the context that now she stopped she still quite tired and having increased pain and discomfort, recommended she take at least a half up to 1 3-4 times a day to manage her back, knee, and rectal pain. Will go ahead and treat her frequency with Bactrim to see if this addresses her pain and discomfort with voiding.) Tiredness/Fatigue: Severe (7-10) Drowsiness/Sedation: Moderate (4-6) Nausea: Mild (1-3) Depression: Severe (7-10) Anxiety: Severe (7-10) Dyspnea: Moderate (4-6) Anorexia: Severe (7-10) Sleep: Variable sleep pattern Constipation: Yes, Intermittent constipation (had no had BM for a week as would not take bowel medication; on Tuesday night had soft stool followed by diarrhea and took some immodium; very fearful of pain of pooping and incontinence) Feelings of wellbeing/Perceived Quality of Life: Poor, Worsening Performance Status: Patient presents with a decline in functional status, is using the bedside commode, can ambulate with walker only a few feet and needs maximum caregiver assist at this point in time. This is attributed not only to weakness, but her rectal pain and pain from her fall. I would put her at PPS of 40%. Daughter is asking about a hospital bed, and other equipment to support her in her home setting, please see palliative care discussion in transitioning to hospice. Unable to tolerate thought of shower today, is dependent on caregiver for all adls - Palliative Care Discussion: Patient presents as a failure to thrive, doing poorly. She does not want to return to the hospital wants to be comfortable though she says she "is not ready to ". Discussed at length looking at hospice support to build to meet her needs, part of the barrier had been about the transfusions. Today she would not be able to get and, we did discuss trying to get her more comfortable , treat her UTI, spoke with the hospice liaison, will can revisit though Procrit would come off the table. Suspect some of her decline is related to her most recent fall, her decreased intake, and she does appear somewhat dehydrated today. Patient does want to stay on her home setting, she does recognize she needs 24- hour caregiving, she is somewhat distressed that she feels everyone just wants her to be "done with it". We spent quite a bit of time discussing the natural progression of her disease, her high risk for infection, and most likely her decline as a result of her fall. She is willing to have hospice come, provide equipment, and increased support to Valentina and aware she needs increased caregiving. We did discuss the extra layer of support, to meet her goals to be at home, and can continue to negotiate things as far as weighing benefits and burdens of further transfusions depending on if she improves or declines. Patient easily overwhelmed and anxious, unclear if she is able to weigh benefits and burdens of decisions currently, but is aware I am making a hospice referral. POLST is in place, is DNAR/Comfort Measures. I did call her daughter Shaina Wesley [phone]. She has recognized her mother's decline and things were going poorly over this last week. She has wanted hospice now for a long period of time, I asked her what her understanding of this was. We did review the hospice team, reviewed that it is not 24-hour care, she reports they do have the [place] higher this assistance for her mom. My recommendation is she does need to initiate this as soon as possible, that she is no longer safe and as well as for her emotional well-being. Will be important to have social sciences lecturer involved as soon as possible. Did tentatively tell her the visit would be at 1400 tomorrow, she will try to accommodate her work schedule and is aware hospice will be calling. Results - Lab Results Lab results reviewed: Yes Impression and Recommendations - Palliative Care Impression: This is an 87-year-old woman who has had a fairly rapid decline over the last week, this can be attributed to a recent fall, her underlying disease process of MDS, increased distress with her rectal pain, and now presents with dehydration and failure to thrive. She does now need 24-hour care, she does not want to be hospitalized, wants to be comfortable, but remains reticent and fearful around end of life. Palliative care to transition to hospice, patient' s goal is to remain in her home setting, this may be a challenge given the current social situation. Recommendations/Counseling Done: 1. Urinary frequency. Patient does present with dehydration, urinary frequency , mild dysuria. Will go ahead and initiate Bactrim 400 mg/80 mg 1 twice daily 7 days given her previous renal status and most likely dehydration at this point. UA was collected, though concerned about contamination. 2. Rectal pain. Patient does present with prolapse today, appears quite friable but no joseluis bleeding, she does have a area of erosion that is quite painful. They have been using the Proctosol HC cream, has not made much improvement. We will continue to use external creams as well as heat and cold and witch alecia tucks. Has cushion for sitting at dining room that is helpful. She has been positioning on side. Will order hospital bed. 3. Anorexia. Patient does present with decreased intake and dehydration, has had poor taste changes and poor appetite over the weekend. Is worried about any kind of milk products leading to her risk of diarrhea, they will get Martin milk or Lactaid to do instant breakfast. Reviewed trying soups, smoothies, encouraged to eat for comfort. She does complain of increased trouble with swallowing, encouraged to follow a soft diet. 4. Hypotension. Patient does present with blood pressure 92/42, will discontinue the furosemide, Zestril, Atrovastatin. Patient c/o dry mouth will hold the tolterodine for now. 5. Generalized weakness. They have modified the environment with using the commode at bedtime, patient does still have difficulty getting in and out of bed. She is quite fearful she will not know how to work the hospital bed Valentina was quite reassuring as well as if a secure 24-hour care. 6. Advanced care planning. Long involved conversation with patient in trying to define goals of care, and she does not want to prolong her suffering, but she does not want to , but does understand that she presents as quite ill today. We did discuss in the context of her wanting to stay home, hospice would be of support to her. We would also go ahead and order the equipment, which should be a hospital bed, over the bed table, and oxygen in case needs in future. Call the doctor 50s to request hospice order. Called to Dr. Klein/LEENA to cancel appointment and Procrit tomorrow as well as inform regarding plan of care. Follow-up with daughter who is the DPOAE, patient does present with able to participate in decision-making, but confirmed with Shaina that this is her wishes for her mother. She will try and arrange her schedule to be able to be present for hospice admit tomorrow. Called to hospice medical attendant regarding questions and concerns regarding possible transfusion in the future, will continue to weigh benefits and burdens moving forward. Home health PT at present the end of visit, will have them do discharge [place] as to be able to initiate hospice tomorrow. Time Spent: 75 minutes was given 50% of this done in counseling regarding hospice goals of care hospice benefit and coordination of care with home health, [facility] clinic, hospice medical attendant, director hospice operations as well as PCP
[2018-03-20 16:04] LABS: BILIRUBIN,URINE NEGATIVE (NEGATIVE); GLUCOSE, URINE (UA) NEGATIVE (NEGATIVE); KETONES,URINE (UA) TRACE mg/dL (NEGATIVE); LEUKOCYTE ESTERASE, URINE TRACE (NEGATIVE); NITRITE,URINE NEGATIVE (NEGATIVE); OCCULT BLOOD,URINE NEGATIVE (NEGATIVE); PROTEIN,URINE NEGATIVE (NEGATIVE); UROBILINOGEN,URINE 0.2 (NORMAL) E.U./dL (NORMAL)
[2018-03-20 16:06] LABS: CLARITY,URINE CLOUDY (CLEAR)
[2018-03-20 16:13] LABS: BACTERIA,URINE Many /HPF (None Seen); RBC,URINE None Seen /HPF (0-5); SQUAMOUS EPITHELIAL CELL,UR MANY Squamous (<= Few)
== END 2018-03-20 11:46 | disposition home or self-care (01) ==
LOC: PC 11:45
PROVIDERS: ATTEND Nurse Practitioner Adult Health
DX: Z51.5 Encounter for palliative care (principal); R35.0 Frequency of micturition; K62.89 Other specified diseases of anus and rectum; R63.0 Anorexia; I95.9 Hypotension, unspecified; M62.81 Muscle weakness (generalized); D46.9 Myelodysplastic syndrome, unspecified; I50.9 Heart failure, unspecified; D61.818 Other pancytopenia; E86.0 Dehydration; F32.9 Major depressive disorder, single episode, unspecified; F41.9 Anxiety disorder, unspecified; Z66 Do not resuscitate; R62.7 Adult failure to thrive
CPT/HCPCS: 81001; 81003; 87086; 99350

== ENCOUNTER → 2018-03-20 | Outpatient (CLI) | payer MEDICARE, OTHER ==
[2018-03-20 16:04] LABS: BILIRUBIN,URINE NEGATIVE (NEGATIVE); GLUCOSE, URINE (UA) NEGATIVE (NEGATIVE); KETONES,URINE (UA) TRACE mg/dL (NEGATIVE); LEUKOCYTE ESTERASE, URINE TRACE (NEGATIVE); NITRITE,URINE NEGATIVE (NEGATIVE); OCCULT BLOOD,URINE NEGATIVE (NEGATIVE); PROTEIN,URINE NEGATIVE (NEGATIVE); UROBILINOGEN,URINE 0.2 (NORMAL) E.U./dL (NORMAL)
[2018-03-20 16:06] LABS: CLARITY,URINE CLOUDY (CLEAR)
[2018-03-20 16:13] LABS: BACTERIA,URINE Many /HPF (None Seen); RBC,URINE None Seen /HPF (0-5); SQUAMOUS EPITHELIAL CELL,UR MANY Squamous (<= Few)
== END ==
LOC: LAB.R 08:00
PROVIDERS: ATTEND Nurse Practitioner Adult Health
DX: N39.0 Urinary tract infection, site not specified (principal)
CPT/HCPCS: 81001; 81003; 87086